=== PATIENT | male | born 1945 | race Caucasian/White ===

== ENCOUNTER 2017-03-08 07:59 | Outpatient (CLI) | payer MEDICARE, OTHER ==
[~2017-03-08 07:59] MED LIST: Iopamidol 370 76% 50 ML VIAL FS ONE
--- NOTE | 2017-03-08 09:42 | RAD ---
2 VIEWS OF CHEST: Date: 03/08/17 COMPARISON: 11/27/14. HISTORY: Transitional cell carcinoma of left kidney. FINDINGS: Descending thoracic aorta is tortuous. No pneumothorax, pleural fluid, focal consolidation, or alveol ar edema. Mid thoracic spine degenerative disc disease noted with disc space narrowing and anterior o steophyte formation. There is atherosclerotic calcification of the aortic arch. IMPRESSION: No acute findings. Incidental findings as above. No interval change since 11/27/14. POS: [facility]
--- NOTE | 2017-03-08 11:25 | CT ---
CT OF THE ABDOMEN AND PELVIS WITH AND WITHOUT IV CONTRAST: HISTORY: History of transitional cell carcinoma of the left kidney. COMPARISON: CTA of the abdomen and pelvis dated 03/01/16. FINDINGS: There are stable bilateral renal cysts with the largest being 4.4 cm within the left mid kidney. The re is a left ureteral stent in place. No gross region of abnormal urothelial enhancement is evident. No hydronephrosis is demonstrated. No solid renal lesion is noted. The prostate is mildly enlarge d measuring 5.3 cm. There is a small hiatal hernia. No focal hepatic lesion is evident. There is slight nodular contour to the liver that is similar-sonali earing to the prior. There is a very tiny hypodensity within the anterior aspect of the right hepati c lobe which may be reflecting a small amount of perihepatic fat within a focal region of concavity a long the liver surface. Scattered vascular calcifications are similar. The spleen is normal-appearing. There are scattered colonic diverticula. Rectum and perirectal soft tissues are unremarkable. 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 There is diffuse osteopenia. There is s cattered degenerative change. IMPRESSION: 1. No definite solid renal lesion demonstrated. 2. No gross urothelial lesion evident. The left ureteral stent slightly limits evaluation of the ur othelial lining of the left renal collecting system. There are bilateral renal cysts. 3. Prostate enlargement. 4. 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 5. Diffuse osteopenia. 6. Small hiatal hernia. POS: [facility]
== END 2017-03-08 08:00 | disposition home or self-care (01) ==
LOC: CT 07:59
PROVIDERS: ATTEND Urology
DX: C64.2 Malignant neoplasm of left kidney, except renal pelvis (principal); N28.1 Cyst of kidney, acquired; N40.0 Benign prostatic hyperplasia without lower urinary tract symptoms; M85.80 Other specified disorders of bone density and structure, unspecified site; K44.9 Diaphragmatic hernia without obstruction or gangrene
CPT/HCPCS: 71020; 74178

== ENCOUNTER 2017-03-15 14:29 | Outpatient (CLI) | payer MEDICARE, OTHER ==
[2017-03-15 17:29] LABS: Bilirubin Negative (Negative); Blood, Urine Moderate (Negative); Glucose, Urine (Dipstick) Negative (Negative); Ketone, Urine Negative (Negative); Nitrite Negative (Negative); Protein, Urine (Dipstick) Negative (Neg-Trace)
[2017-03-15 17:33] LABS: Bacteria/HPF None Seen HPF (None Seen); Hyaline Casts/LPF 0-3 HYALINE CAST LPF (0-3 Hyaline); Squamous Epithelial None Seen HPF (0-3); WBC/HPF 0-3 HPF (0-3)
[2017-03-15 17:35] LABS: Hematocrit 36.8 % (42.0-52.0); Mean Platelet Volume 6.9 fL (7.4-10.4); White Blood Cell (WBC) Count 5.7 thou/uL (4.8-10.8)
[2017-03-15 17:40] LABS: PTT 30.2 SEC (22.9-36.1); Prothrombin Time 13.5 SEC (12.0-14.7)
[2017-03-15 17:50] LABS: ALT (SGPT) 18 U/L (8-55); AST (SGOT) 19 U/L (5-34); Alkaline Phosphatase 73 U/L (40-150); Anion Gap 16 mmol/L (10-20); BUN (Urea Nitrogen) 21 mg/dL (8.4-25.7); Bilirubin, Total 0.7 mg/dL (0.2-1.2); Calc. Creatinine Clearance 0 mL/min (70-130); Calcium 9.1 mg/dL (7.8-10.44); Carbon Dioxide 26 mmol/L (23-31); Chloride 102 mmol/L (98-107); Estimated GFR-MDRD 80; Globulin 2.7 g/dL (2.4-3.5); Protein, Total 6.9 g/dL (5.8-8.1)
--- NOTE | 2017-03-15 18:34 | RAD ---
TWO VIEWS OF THE CHEST: 03/15/2017 COMPARISON: 03/08/2017 HISTORY: Preoperative patient. FINDINGS: There is no pneumothorax or pleural fluid and no focal consolidation or alveolar edema. The descend ing thoracic aorta is tortuous, a stable finding. There is multilevel mid-thoracic spine disk space narrowing and anterior osteophyte formation. Stable mild pulmonary hyperinflation. IMPRESSION: Chronic findings as described above. No acute findings. POS: [facility]
--- NOTE | 2017-03-16 21:05 | EKG ---
Test Reason : Blood Pressure : / mmHG Vent. Rate : 061 BPM Atrial Rate : 061 BPM P-R Int : 166 ms QRS Dur : 092 ms QT Int : 446 ms P-R-T Axes : 059 011 006 degrees QTc Int : 448 ms Sinus rhythm with marked sinus arrhythmia Inferior infarct , age undetermined Abnormal ECG When compared with ECG of 19-OCT-2016 09:45, Inferior infarct is now Present Confirmed by KARISHMA DE LA CRUZ, SRaisa ([id number]) on 03/16/2017 9:05:18 PM Referred By: SHIVA Confirmed By:DR. Zia SCHWARZ MD
== END 2017-03-15 14:30 | disposition home or self-care (01) ==
LOC: LABBT 14:29
PROVIDERS: ATTEND Urology
DX: Z01.818 Encounter for other preprocedural examination (principal); C68.9 Malignant neoplasm of urinary organ, unspecified; R91.8 Other nonspecific abnormal finding of lung field; M51.34 Other intervertebral disc degeneration, thoracic region; M25.78 Osteophyte, vertebrae
CPT/HCPCS: 71020; 80053; 81001; 85027; 85610; 85730; 86850; 86900; 86901; 87086; 93005; 93010

== ENCOUNTER 2017-03-15 16:30 | Inpatient (IN) | payer MEDICARE, OTHER ==
[2017-03-18] MEDS ORDERED: Fentanyl 250 MCG/5 ML VIAL ONE ×2 (06:54→07:38)
[2017-03-18] MEDS ORDERED: CEFAZOLIN/Water 2 GM/20 ML SYRINGE ONE (07:19)
[2017-03-18] MEDS ORDERED: Levofloxacin 500 mg/D5W 100 ml Premix Bag ONE (07:19)
[2017-03-18] MEDS ORDERED: Bupivacaine/Epinephrine 0.25% 30 ML VIAL ONE (07:55)
[2017-03-18] MEDS ORDERED: B & O ONE (07:56)
[2017-03-18] MEDS ORDERED: Propofol 200 MG/20 ML VIAL ONE (07:59)
[2017-03-18] MEDS ORDERED: Glycopyrrolate 0.2 MG/ML 5 ML SYRINGE ONE (07:59)
[2017-03-18] MEDS ORDERED: Ondansetron HCl/PF 4 MG/2 ML Vial ONE (07:59)
[2017-03-18] MEDS ORDERED: PHENYLEPHRINE-NS 100 MCG/ML 10 ML SYRINGE ONE (07:59)
[2017-03-18] MEDS ORDERED: ePHEDrine/0.9% NaCl/PF SYRINGE 50 mg/10 ml ONE (07:59)
[2017-03-18] MEDS ORDERED: diphenhydrAMINE 50 MG/ML VIAL ONE (07:59)
[2017-03-18] MEDS ORDERED: Lidocaine 1% PF 5 ML VIAL ONE (07:59)
[2017-03-18] MEDS ORDERED: Dexamethasone 20 MG/5 ML VIAL ONE (07:59)
[2017-03-18] MEDS ORDERED: Dexamethasone 4 mg/ml Vial ONE (13:06)
[2017-03-18] MEDS ORDERED: Bupivacaine HCl 0.5%/Epinephrine 1:200,000/PF 30 ml Vial ONE (13:45)
[2017-03-18 14:34] LABS: Hematocrit 37.1 % (42.0-52.0); Mean Platelet Volume 6.5 fL (7.4-10.4); Red Blood Cell (RBC) Count 3.53 mill/uL (4.70-6.10); White Blood Cell (WBC) Count 16.9 thou/uL (4.8-10.8)
[2017-03-18] MEDS ORDERED: Fentanyl 100 MCG/2 ML VIAL ONE (14:44)
[2017-03-18 15:00] LABS: Anion Gap 14 mmol/L (10-20); BUN (Urea Nitrogen) 17 mg/dL (8.4-25.7); Calc. Creatinine Clearance 81 mL/min (70-130); Calcium 8.6 mg/dL (7.8-10.44); Carbon Dioxide 23 mmol/L (23-31); Chloride 101 mmol/L (98-107); Estimated GFR-MDRD 65
--- NOTE | 2017-03-18 15:22 | RAD ---
CHEST 1 VIEW: Date: 03/18/17 HISTORY: Evaluate for left pneumothorax. COMPARISON: 03/02/16, 03/15/17. FINDINGS: Slight elongation of the aorta. Normal cardiac silhouette. Pulmonary vessels are within normal limits . Costophrenic angles are clear. Chronic changes of lung parenchyma. No consolidation or mass. No def inite pneumothorax or osseous abnormalities. A small amount of subcutaneous emphysema of the right he mithorax is noted. There is evidence of pneumomediastinum. IMPRESSION: 1. No evidence of a left or right-sided pneumothorax. 2. Nonspecific subcutaneous emphysema of the right thoracic soft tissues and pneumomediastinum. POS: [facility]
[2017-03-18] MEDS ORDERED: diphenhydrAMINE 25 MG CAP PO PRN (16:06)
[2017-03-18] MEDS ORDERED: Morphine PF 1 MG/ML SYR IVP PRN (16:06)
[2017-03-18] MEDS ORDERED: cefOXitin 1.5 GM in Sodium Chloride 0.9% 100 ML IVPB SCH (16:06)
[2017-03-18] MEDS ORDERED: ALPRAZolam 0.25 MG TAB PO PRN (16:06)
[2017-03-18] MEDS ORDERED: Ondansetron HCl/PF 4 MG/2 ML Vial IVP PRN (16:06)
[2017-03-18] MEDS ORDERED: hydrALAZINE 20 MG/ML VIAL SLOW IVP PRN (16:06)
[2017-03-18] MEDS ORDERED: Mag-Al 1200 mg/1200 mg/30 ML UDCUP PO PRN (16:06)
[2017-03-18] MEDS ORDERED: Zolpidem Tartrate 5 MG TAB PO PRN (16:06)
[2017-03-18] MEDS ORDERED: Oxybutynin 5 MG TAB PO PRN (16:06)
[2017-03-18] MEDS ORDERED: Bisacodyl 10 MG SUPP PR PRN (16:06)
[2017-03-18] MEDS ORDERED: MORPHINE 10 MG/ML SYRINGE SLOW IVP PRN (16:06)
[2017-03-18 16:15] VITALS: BMI 32.3
--- NOTE | 2017-03-18 16:58 | OP ---
DATE OF SURGERY: 03/18/2017 SERVICE: Urology. SURGEON: Grabiel Miller M.D. RESEARCH CHEF: Anisha Ruano M.D. 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 PROCEDURE PERFORMED: Left laparoscopic radical nephroureterectomy. INDICATIONS FOR PROCEDURE: Mr. Ruano is a 71-year-old white male, who was sent to me by Dr. Cm Adair. Dr. Adair had worked him up for urothelial carcinoma and had performed cytologies and ureteroscopy of his left kidney. The patient was found to have urothelial carcinoma with a combination of high- grade and low-grade noninvasive cancer of the renal pelvis and throughout the ureter. The patient desired a less invasive surgery than an open nephroureterectomy and so he was sent to me for a laparoscopic radical nephroureterectomy. I have reviewed the patient's pathology and his imaging, and we have agreed to proceed forward with the left-sided radical nephroureterectomy with all risks and benefits discussed ahead of time. DESCRIPTION OF PROCEDURE: After identification of his armband and verification of consent, the patient was brought back to the operating room where he underwent general anesthesia with endotracheal intubation. He was then placed in dorsal lithotomy position and prepped and draped in the usual sterile fashion. After appropriate time out, a lubricated 28-[place] Islander resectoscope sheath was brought into the patient's urethra, into the bladder. The stent was seen emanating from the left ureteral orifice. The ureteral orifice was scored circumferentially around the ureter to create a defect in the urothelium to make subsequent removal of the ureter later more facilitated. Once this was completed and we could see the perivascular fat, the cystoscope was removed leaving the bladder full. A 16-[place] Islander Mansfield catheter was then placed into the patient's bladder. The catheter was secured with a Statlock and then the patient changed to a left lateral decubitus full flank positioning. He then had all his pressure points padded and it was prepped and draped again in the usual sterile fashion. An incision was made below the 12th rib along the mid axillary line and dissection was carried down with S retractors and then blunt dissection into the retroperitoneum. The psoas muscle was identified using digital dissection and swept clear of the surrounding tissues anteriorly and cephalad and caudally. A Spacemaker balloon was then inserted into the space that had been created digitally and insufflated to maximal distention under direct vision using the laparoscopic camera. The Spacemaker balloon was then removed and the balloon port inflated and left in place for the camera. Two additional ports were placed, a 5-mm left-handed port and a 12-mm right-handed port for further dissection. Dissection was then carried out along the psoas muscle cephalad until the kidney could be elevated. Dissection was then begun until the gonadal vein was identified. The gonadal vein was dissected proximally until the renal vein was identified. The renal vein was dissected free and this exposed the renal artery. The renal artery and vein were dissected clear of each other and found to be separate enough that they could be independently ligated. The renal artery was first ligated using a vascular loaded curved tip stapler. Unfortunately, the stapler being 2.5-mm vascular load did not seem to adequately control the artery and there was pulsatile bleeding coming from between the staple lines to assist with suctioning and a fourth 5-mm port was placed in the patient's retroperitoneum and suction pressure held on the bleed while additional clips were applied on the renal artery. This slowed the bleeding down significantly and then FloSeal was applied on the renal artery. While the FloSeal was in place, the renal vein was divided using a 2-mm vascular loaded stapler. The gonadal vein was clipped and divided using the LigaSure device. The posterior aspect and lateral aspect of the kidney were then dissected free using blunt dissection and the LigaSure device. I then came back to the renal artery, which had stopped bleeding at this point. The renal artery was dissected proximally until more renal artery stump could be identified. Two titanium clips were applied with a clip seismograph supervisor to ensure that the patient would not have a delayed bleeding coming from the renal artery. Another vial of FloSeal was then applied over the renal vein and renal artery for hemostasis. The kidney was then dissected free from the surrounding investments keeping Gerota's fascia intact. There was a significant amount of perinephric fat, which had to be dissected free from the surrounding tissues, and during this step, the adrenal vein was removed with the Gerota's fat. Given the significant amount of fat, it could not be and it was removed with the specimen. Once the kidney was freed up in all directions, it was then pushed down into the lower retroperitoneum towards the pelvis. The hilum was reinspected and there did not appear to be any significant bleeding. The adrenal fossa had a very minimal oozing, but nothing significant. I felt it was fine to go ahead and take out all the ports and takedown the insufflation. The fascias were closed using a 0 Vicryl on a UR -6 and the skin closed with 4-0 Monocryl in a running fashion for the 5-mm and 12-mm and balloon ports. Once these were all closed, Dermabond was applied, and once dried, the patient taken out of positioning and changed to a mildly oblique supine position with the bed flexed to expose the left lower quadrant. Pressure points were again padded and the patient was reprepped and draped in a sterile fashion. An incision was made from near the pubic tubercle to near the iliac crest, superior to these landmarks. With a 10-blade, dissection was then carried down with Bovie electrocautery to the external oblique aponeurosis. This was divided then with Bovie electrocautery and the internal oblique aponeurosis opened as well. This allowed entry into the retroperitoneum. The retroperitoneal space was cleared, and the iliac artery and vein identified. The Bookwalter retractor was then placed to help with the exposure. Using our hands, the previously dissected kidney was palpated in the lower retroperitoneum. There were a few investing attachments, which had to be broken up, but then the kidney was able to be brought out into the surgical field. The ureter immediately became apparent and dissection of the ureter distally was begun. We dissected the ureter free of the iliac artery and distally towards the bladder. Several champagne maker vessels were identified, which had to be clipped or cauterized. One vessel was oversewn secondary to bleeding. Dissection was carried down all the way to the level of the bladder until the bladder mucosa was identified. The stay sutures were applied and the bladder mucosa entered until a cuff could be removed off the bladder. The ureter did detach from the bladder cuff. So, these specimens were sent separately. The bladder cuff was sent in a separate specimen jar. The mucosa and detrusor were then closed in a single layer with a 2-0 Vicryl, as the visualization was too difficult to try and place a 2 layer closure. This was leak tested, and there was found to be a small leak on the posterior aspect of the cystotomy. An additional anrdly-py-wxgaj was placed at the area of leakage and the bladder refilled with 200 mL of sterile water without any leakage apparent from the bladder. Satisfied, the wound was irrigated, and there did not appear to be any additional bleeders. A #10 AD drain, flat drain, was brought into the retroperitoneum and placed away from the cystotomy closure site. The fascia was then closed with a running [address]-1, closing both layers with a single suture. Ilsa was applied in the subcutaneous tissue after irrigation of the subcutaneous tissues and the skin closed with skin bee. The patient was then returned to a supine position. The Anesthesia team then provided a tap block for postoperative anesthesia. The patient was then awakened, extubated, and taken to PACU for recovery in stable condition. COMPLICATIONS: A renal artery bleed through the staple line due to a device failure. This was controlled with titanium clips and no additional bleeding was identified. ESTIMATED BLOOD LOSS: 350 mL. RETAINED TUBES AND DRAINS: A 16-[place] Islander Mansfield catheter and a #10 flat AD drain. SPECIMENS: Left kidney and ureter with bladder cuff. DISPOSITION: The patient will go to PACU, and once he is fully recovered, can go to the floor. He will have inpatient recovery for several days and keep his catheter in for a week. He will then follow up with me for a voiding trial and a cystogram outpatient. We will handle his care on an outpatient basis thereafter. LALO
[2017-03-18] MEDS: Sodium Chloride 0.9% 1,000 ML IV SCH (17:04)
[2017-03-18] MEDS: cefOXitin 1.5 GM, Admixture Fee 1 EACH in Sterile Water 8.33 ML SLOW IVP SCH (17:22)
[2017-03-18] MEDS: traMADol HCl 50 MG TAB PO SCH ×2 (17:22→22:27)
[2017-03-18] MEDS: Hydrochlorothiazide 25 MG TAB PO SCH (20:12)
[2017-03-18] MEDS: Docusate 100 MG CAP PO SCH (20:13)
[2017-03-18] MEDS: Atorvastatin Calcium 40 MG TAB PO SCH (20:13)
[2017-03-19] MEDS: cefOXitin 1.5 GM, Admixture Fee 1 EACH in Sterile Water 8.33 ML SLOW IVP SCH ×2 (01:25→11:10)
[2017-03-19] MEDS: Sodium Chloride 0.9% 1,000 ML IV SCH (02:56)
[2017-03-19] MEDS: traMADol HCl 50 MG TAB PO SCH ×4 (04:30→22:53)
[2017-03-19 05:18] LABS: #Eosinphils 0.1 thou/uL (0.0-0.7); #Lymphocytes 0.6 thou/uL (1.20-3.40); #Monocytes 0.9 thou/uL (0.11-0.59); #Neutrophils 7.5 thou/uL (1.40-6.50); %Eosinophils 0.6 % (0.0-10.0); %Lymphocytes 6.1 % (21.0-51.0); %Monocytes 9.5 % (0.0-10.0); Mean Platelet Volume 5.9 fL (7.4-10.4); Red Blood Cell (RBC) Count 2.96 mill/uL (4.70-6.10); White Blood Cell (WBC) Count 8.9 thou/uL (4.8-10.8)
[2017-03-19 05:28] LABS: Anion Gap 12 mmol/L (10-20); BUN (Urea Nitrogen) 17 mg/dL (8.4-25.7); Calc. Creatinine Clearance 67 mL/min (70-130); Carbon Dioxide 26 mmol/L (23-31); Chloride 103 mmol/L (98-107); Estimated GFR-MDRD 53
--- NOTE | 2017-03-19 09:13 | PRG ---
DATE OF SERVICE: 03/19/2017 SUBJECTIVE: The patient states he is doing okay. He is having some pain in his left flank, but his groin incision is not hurting much secondary to the tap block. He has not passed any gas and states he does not have much of an appetite. He is concerned about being able to get up and walk today. He denies any nausea, vomiting, chest pain or shortness of breath. PHYSICAL EXAMINATION: VITAL SIGNS: Temperature 98.4, pulse 90, respirations 20, blood pressure 104/67, saturation 97% on 2 liters nasal cannula. Ins and outs 1995 mL in, 1795 mL out of that 120 mL it is through AD drainag e. GENERAL: No apparent distress, communicative and alert. CARDIOVASCULAR: Regular rate and rhythm. CHEST: No increased work of breathing. ABDOMEN: Soft. No tenderness to palpation anteriorly. Appropriate mild tenderness to palpation on the left flank. Positive bowel sounds, soft, nondistended. Laparoscopic incisions are clean, dry, a nd intact with mild ecchymosis surrounding. The groin incision is dressed. GENITOURINARY: Mansfield catheter in place with clear yellow urine secured with a StatLock. EXTREMITIES: Sequential compression devices on. No clubbing, cyanosis or edema. LABORATORY DATA: A full set of labs are in the [facility] system, which I have reviewed. Of note, the patient's white count is 8.9 with hemoglobin 10.1, creatinine is 1.34 today. ASSESSMENT AND PLAN: A 71-year-old white male with left-sided urothelial carcinoma, status post left nephroureterectomy postoperative day #1. I recommend the patient start getting up out of bed today and walking to help with his recovery, pain control and prevention of DVTs. I have told him he can u se further pain medication other than his scheduled tramadol, which he is currently not using. He sh ould continue to use incentive spirometer. I will switch his IV fluids to D5 half normal with potass ium today since he is still not taking great p.o. Diet will be advanced when he is passing gas or alcocer s a better appetite. We will continue to monitor, the patient needs to keep his Mansfield in secondary t o the cystotomy made during the part of the routine procedure. SUMMARY OF RECOMMENDATIONS: 1. Clear liquid diet, advance when flatus or a good appetite. 2. Change IV fluids to D5 half normal with potassium. 3. Walking program. 4. Incentive spirometer. 5. Continue pain control. Advised patient to use [place]. 6. We will continue to monitor.
[2017-03-19] MEDS: D5 1/2 NS w/20 mEq KCL 1,000 ML IV SCH ×2 (09:46→19:30)
[2017-03-19] MEDS: Tamsulosin HCl 0.4 MG CAP PO SCH (09:47)
[2017-03-19] MEDS: Hydrochlorothiazide 25 MG TAB PO SCH ×2 (09:47→21:12)
[2017-03-19] MEDS: Citalopram 20 MG TAB PO SCH (09:51)
[2017-03-19] MEDS: Docusate 100 MG CAP PO SCH ×2 (09:51→21:13)
[2017-03-19] MEDS: Lisinopril 10 MG TAB PO SCH (09:53)
[2017-03-19] MEDS: HYDROcodone/Acetaminophen 7.5/325 mg Tablet PO PRN (14:59)
[2017-03-19] MEDS: Atorvastatin Calcium 40 MG TAB PO SCH (21:13)
[2017-03-20] MEDS: traMADol HCl 50 MG TAB PO SCH ×2 (04:46→10:50)
[2017-03-20] MEDS: D5 1/2 NS w/20 mEq KCL 1,000 ML IV SCH (04:48)
[2017-03-20 05:02] LABS: #Eosinphils 0.1 thou/uL (0.0-0.7); #Neutrophils 6.6 thou/uL (1.40-6.50); %Basophils 0.3 % (0.0-1.0); %Eosinophils 1.4 % (0.0-10.0); %Lymphocytes 11.4 % (21.0-51.0); %Monocytes 11.5 % (0.0-10.0); Hematocrit 31.3 % (42.0-52.0); Mean Platelet Volume 6.7 fL (7.4-10.4); Red Blood Cell (RBC) Count 2.96 mill/uL (4.70-6.10); White Blood Cell (WBC) Count 8.8 thou/uL (4.8-10.8)
[2017-03-20 05:14] LABS: Anion Gap 10 mmol/L (10-20); BUN (Urea Nitrogen) 14 mg/dL (8.4-25.7); Calc. Creatinine Clearance 78 mL/min (70-130); Calcium 8.4 mg/dL (7.8-10.44); Carbon Dioxide 27 mmol/L (23-31); Chloride 103 mmol/L (98-107); Estimated GFR-MDRD 63
[2017-03-20] MEDS: Docusate 100 MG CAP PO SCH ×2 (08:32→20:54)
[2017-03-20] MEDS: Citalopram 20 MG TAB PO SCH (08:32)
[2017-03-20] MEDS: Hydrochlorothiazide 25 MG TAB PO SCH (08:32)
[2017-03-20] MEDS: Lisinopril 10 MG TAB PO SCH (08:33)
[2017-03-20] MEDS: Tamsulosin HCl 0.4 MG CAP PO SCH (08:34)
[2017-03-20] MEDS ORDERED: traMADol HCl 50 MG TAB PO PRN (12:50)
--- NOTE | 2017-03-20 13:24 | PRG ---
DATE OF SERVICE: 03/20/2017 SUBJECTIVE: The patient states he is feeling a lot better today. He has been up out of bed once yes terday. He has not passed any gas, but states he is starting to have a little bit of an appetite. Justo weber has had lots of rumbling in his belly. He denies any nausea, vomiting, chest pain or shortness of breath. His pain is much better controlled today on the pain medications. He is still having troubl e getting out of bed on his own, but once he is up, he is able to walk with assistance. OBJECTIVE: VITAL SIGNS: Temperature 97.9, pulse 81, respirations 20, blood pressure 131/83, saturation 97% on r oom air. Ins and outs 1880 mL in, 2950 mL out, of that 50 mL is from the AD drain. GENERAL: No apparent distress, communicative and alert. CARDIOVASCULAR: Regular rate and rhythm. CHEST: No increased work of breathing. ABDOMEN: Soft, nontender, and nondistended. Positive bowel sounds. Incision dressing was removed t sofya. Incision is clean, dry, and intact. AD has scant serosanguineous fluid. GENITOURINARY: Mansfield catheter in place secured with StatLock with clear yellow urine. EXTREMITIES: No clubbing, cyanosis or edema. SCDs in place. LABORATORY DATA: On laboratory evaluation, a full set of labs are in the [facility] system, which I alcocer ve reviewed. Of note, the white count is 8.8, hemoglobin is stable at 10.3. Creatinine is 1.15. So dium is currently 135. ASSESSMENT AND PLAN: A 71-year-old white male with upper tract urothelial carcinoma of the left kidn ey, status post left laparoscopic radical nephroureterectomy postoperative day #2. The patient has s ome mild hyponatremia, so I will stop his hydrochlorothiazide, stop his IV fluids and encourage the p atient to drink p.o. fluids only. If he is not able to keep up with fluid intake, then we will start him back on normal saline. With regards to rest of his recovery, I think he can try regular diet to day although I told him to go slow. He should continue to use his incentive spirometer. He needs to continue getting up and walking out of bed with assistance to regain his strength. At the current t jerica with his current functional ability, he will not be able to go home without physical therapy unle ss he regains his strength back in order to be able to get out of bed and walk on his own without ass istance. I will consult official physical therapy consult for evaluation and assessment. Mansfield cath eter will need to be continued secondary to his cystotomy for nephroureterectomy. We will change his tramadol to p.r.n. instead of scheduled at the current time. I have also recommended that he consid er using a suppository to improve bowel function. Additionally, patient was advised since he is havi ng some redness around his IV site on his left arm, he could potentially get another IV in his right arm. If it only if he gets another IV access, the original IV can be removed; otherwise, if no addit ional IV access can be obtained, the current IV should be maintained as it is not currently infiltrat ed, it is working and there is no evidence of infection or cellulitis.
[2017-03-20] MEDS: HYDROcodone/Acetaminophen 7.5/325 mg Tablet PO PRN ×2 (16:17→20:58)
[2017-03-20] MEDS: Atorvastatin Calcium 40 MG TAB PO SCH (20:54)
[2017-03-21 04:43] LABS: #Eosinphils 0.3 thou/uL (0.0-0.7); #Lymphocytes 1.4 thou/uL (1.20-3.40); #Monocytes 0.8 thou/uL (0.11-0.59); #Neutrophils 5.8 thou/uL (1.40-6.50); %Basophils 0.2 % (0.0-1.0); %Eosinophils 4.1 % (0.0-10.0); %Lymphocytes 16.4 % (21.0-51.0); %Monocytes 9.4 % (0.0-10.0); Hematocrit 31.5 % (42.0-52.0); Mean Platelet Volume 6.7 fL (7.4-10.4); Red Blood Cell (RBC) Count 3.01 mill/uL (4.70-6.10); White Blood Cell (WBC) Count 8.3 thou/uL (4.8-10.8)
[2017-03-21 04:52] LABS: Anion Gap 11 mmol/L (10-20); BUN (Urea Nitrogen) 14 mg/dL (8.4-25.7); Calc. Creatinine Clearance 79 mL/min (70-130); Calcium 8.5 mg/dL (7.8-10.44); Carbon Dioxide 26 mmol/L (23-31); Chloride 101 mmol/L (98-107); Estimated GFR-MDRD 64
[2017-03-21] MEDS: Docusate 100 MG CAP PO SCH ×2 (08:41→19:45)
[2017-03-21] MEDS: Citalopram 20 MG TAB PO SCH (08:41)
[2017-03-21] MEDS: Lisinopril 10 MG TAB PO SCH (08:42)
[2017-03-21] MEDS: Tamsulosin HCl 0.4 MG CAP PO SCH (08:42)
[2017-03-21] MEDS: HYDROcodone/Acetaminophen 7.5/325 mg Tablet PO PRN ×2 (08:56→17:31)
[2017-03-21] MEDS ORDERED: Polyethylene Glycol 3350 17 GM Packet PO SCH (13:00)
--- NOTE | 2017-03-21 13:07 | PRG ---
DATE OF SERVICE: 03/21/2017 SUBJECTIVE: The patient states he feels well. He was able to get out of bed by himself yesterday an d walk around the entire hallway. His pain is very well controlled with tramadol and occasional Norc o. He is not using any IV pain medication. He states that he was able to eat regular food yesterday and keep it down without any nausea or vomiting. He is taking in a better clear liquid intake. He denies any chest pain or shortness of breath. His catheter is not having any problems. He is passin g gas, but has not had a bowel movement. OBJECTIVE: VITAL SIGNS: Temperature 97.7, pulse 96, respirations 20, blood pressure 123/78, saturation 96% on r oom air. Ins and outs, patient had 1380 mL orally and 810 mL by IV fluid, 2100 mL of Mansfield drainage and 30 mL out the drain. GENERAL: No apparent distress, communicative and alert. CARDIOVASCULAR: Regular rate and rhythm. CHEST: No increased work of breathing. ABDOMEN: Soft, nondistended, nontender, positive bowel sounds. Incisions clean, dry, and intact. S table ecchymosis around the port sites. GENITOURINARY: Mansfield catheter is secured with clear yellow urine in the bag. EXTREMITIES: Sequential compression devices on with no clubbing, cyanosis or edema. LABORATORY DATA: The full set of labs in the [employer] system, which I reviewed. Of note, the hemogl obin is stable at 10.3 with a stable white count at 8.3, creatinine is 1.13, sodium is 134. ASSESSMENT AND PLAN: A 71-year-old white male with left upper tract urothelial carcinoma, status pos t laparoscopic radical nephroureterectomy postoperative day #3, recovering very well. He has met saray ost all of his criteria for going home, although he is a little slow getting up out of bed and walkin g still. He states he would feel better about staying 1 more day in the hospital to work on his ambu lation, which I think is reasonable. He is doing well from a dietary standpoint, pain control standp oint, but his labs still demonstrates some mild hyponatremia. I will check his sodium levels again t omorrow, but I do anticipate that he should be able to be discharged tomorrow morning. We can go ahe ad and remove his AD drain today as it is not really putting out much. He will need to keep his Fole y catheter in for at least a week for healing of the cystotomy. We will plan for a followup with a c ystogram prior to Mansfield removal in a week.
[2017-03-21] MEDS: Atorvastatin Calcium 40 MG TAB PO SCH (19:46)
[2017-03-22 06:07] LABS: Anion Gap 9 mmol/L (10-20); BUN (Urea Nitrogen) 18 mg/dL (8.4-25.7); Calc. Creatinine Clearance 69 mL/min (70-130); Calcium 8.7 mg/dL (7.8-10.44); Carbon Dioxide 29 mmol/L (23-31); Chloride 101 mmol/L (98-107); Estimated GFR-MDRD 55
[2017-03-22] MEDS: Tamsulosin HCl 0.4 MG CAP PO SCH (08:31)
[2017-03-22] MEDS: Citalopram 20 MG TAB PO SCH (08:31)
[2017-03-22] MEDS: Docusate 100 MG CAP PO SCH (08:32)
[2017-03-22] MEDS: Lisinopril 10 MG TAB PO SCH (08:32)
[2017-03-22] MEDS ORDERED: Polyethylene Glycol 3350 17 GM Packet PO SCH (09:00)
--- NOTE | 2017-03-22 09:41 | PRG ---
DATE OF SERVICE: 03/22/2017 SUBJECTIVE: The patient states he is feeling very well. He has been able to get up and out of bed b y himself without much assistance. He has been walking better with his walker. He feels comfortable going home. He is eating well and passing gas. He has not yet had a bowel movement, but has not alcocer d any nausea or vomiting. Pain is well controlled. OBJECTIVE: VITAL SIGNS: Temperature 98.7, pulse 92, respirations 16, blood pressure 95/62, saturation 98% on ro om air. GENERAL: No apparent distress, communicative and alert. CARDIOVASCULAR: Regular rate and rhythm. CHEST: No increased work of breathing. ABDOMEN: Soft, nontender, and nondistended. Positive bowel sounds. Incision is clean, dry, and int act. AD site is clean. AD has been removed. GENITOURINARY: Mansfield catheter in place with clear yellow urine. EXTREMITIES: No clubbing, cyanosis or edema. LABORATORY DATA: On laboratory evaluation, a full set of labs in the [facility] system, which I have monica navarrowejeison. Of note, patient's sodium today is stable at 135, creatinine is 1.29 with GFR of 55. ASSESSMENT AND PLAN: A 71-year-old white male status post left nephroureterectomy, postoperative day 4 recovered very well. He is ready for discharge home. I will send him home with his Mansfield cathete r and plan is to have his catheter removed with a voiding cystourethrogram in 1 week. Arabella will b e removed in two weeks. I have asked the patient to keep gauze on his staple line due to his belly c overing up some of the incision area which will cause a damp, dark place where potential bacteria and mildew may grow. A gauze will help to keep the area dry and decrease the risk of infection. I went over the patient's discharge instructions and he should be cleared for discharge with follow up in 1 week. In addition, patient's sodium remains stable, it is slightly low. His blood pressure is also slightly low. Will stop the patient's hydrochlorothiazide as this can promote hyponatremia as well a s lower his blood pressure further. This can be restarted with his primary care physician. I have a sked the patient to follow up with his primary care physician in the next 2 weeks to go over his bloo d pressure and his labs. I will reorder a BMP at the time of his follow up.
[2017-03-22 12:22] VITALS: BP 111/77; TEMP 97.8
--- NOTE | 2017-03-23 11:21 | DIS ---
DATE OF ADMISSION: 03/18/2017 DATE OF DISCHARGE: 03/22/2017 ADMITTING DIAGNOSIS: Left upper tract urothelial carcinoma. DISCHARGE DIAGNOSIS: Left upper tract urothelial carcinoma. ADMITTING: Dr. Miller. DISCHARGING: Dr. Miller. PROCEDURE PERFORMED WHILE INPATIENT: Left radical nephroureterectomy, laparoscopic. BRIEF HISTORY: Mr. Ruano is a 71-year-old white male who had been referred to me by Dr. Adair for a left radical nephroureterectomy. He had undergone ureteroscopy with biopsies demonstrating high-gr beatriz and low-grade urothelial carcinoma present throughout the ureter. He has already undergone neoad juvant chemotherapy and is now presenting for removal of his left kidney and ureter for completion of his treatment. Risks and benefits of the surgery have been discussed and he has agreed to proceed f orward. Please see the scanned history and physical for full records in the [facility]. HOSPITAL COURSE: After his surgery (please see operative note for details), the patient was admitted to the surgical floor for postoperative recovery. He underwent a TAP block in the OR prior to comin g out to PACU to help with pain control. He was left on scheduled tramadol with hydrocodone ordered p.r.n. His pain was relatively high on postoperative day 0-1, but subsequently became much better th ereafter and the patient was able to use less and less pain medication. He did have some trouble wit h ambulation initially, but was able to ambulate on his own and get out of bed on his own after worki ng with a walking program for approximately 2 days. By the third day, he was able to get up out of b ed and ambulate by himself with his catheter. His diet was started with a clear liquid diet and adva nced as tolerated to a regular diet, which he was able to do by the third postoperative day. His AD drain was removed on postoperative day #3, as it was putting out very little fluid. His Mansfield cathet er remained clear throughout his hospitalization, and we had elected to leave it at the time of disch arge, as it was too soon to remove and I did not want him to risk having a bladder leak. By postoper ative day #4, he had met all of his criteria for discharge. He had been up out of bed, walking with his pain controlled, using his incentive spirometer well, his vitals had looked good, and his hemoglo bin and other labs were stable. The patient's renal function remained stable. He did have some hypo natremia, but there was no evidence that this was worsening at the time of his discharge, so I felt t hat this was well enough for him to go home on. I did advise that he stop his hydrochlorothiazide du e to his hyponatremia and follow up with his primary care physician to discuss whether or not he need s to remain on this medication since his blood pressure was fairly well controlled off the hydrochlor othiazide in the hospital; however, this may be due to his pain medications and anesthetic effects, a nd it is possible that he may need to go back on the medication in the future, but we will need to alcocer ve his electrolytes monitored. He was discharged on postoperative day #4 without any complications o r problems. DISPOSITION: Discharge to home. DISCHARGE CONDITION: Good. The patient is being discharged with a Mansfield catheter to gravity drainage. DISCHARGE MEDICATIONS: Include resuming all of his home medications except the hydrochlorothiazide, which we have held until he is able to speak with his primary care physician. He is being given hydr ocodone 5/325 mg 1-2 tabs p.o. q.4 hours p.r.n. pain, and tramadol 50 mg p.o. q.6 hours p.r.n. pain, Colace 100 mg p.o. b.i.d. DISCHARGE INSTRUCTIONS: Include no heavy lifting, no strenuous activity, no driving until the cathet er is removed. He can shower, but should not submerge in water, should not perform any strenuous act ivity or any lifting over 20 pounds. He is to keep his Mansfield catheter to gravity drainage at all jesús es, and notify me for any fevers, problems with his catheter, significant hematuria, persistent vomit ing, chest pain, shortness of breath, or any other concerning signs or symptoms the patient may have. FOLLOWUP: His followup will be in approximately a week and a half for a cystogram and catheter remov al. We will subsequently remove his bee a week after that.
== END 2017-03-22 12:20 | disposition home or self-care (01) | DRG 654 ==
LOC: SURG A 03-18 05:54
PROVIDERS: ADMIT Urology; ATTEND Urology
PROC: 0TT14ZZ Resection of Left Kidney, Percutaneous Endoscopic Approach (ICD-10-PCS; principal; 2017-03-18)
PROC: 0TBB4ZZ Excision of Bladder, Percutaneous Endoscopic Approach (ICD-10-PCS; 2017-03-18)
PROC: 0TT74ZZ Resection of Left Ureter, Percutaneous Endoscopic Approach (ICD-10-PCS; 2017-03-18)
DX: C65.2 Malignant neoplasm of left renal pelvis (principal); C66.2 Malignant neoplasm of left ureter; E87.1 Hypo-osmolality and hyponatremia; I10 Essential (primary) hypertension; E78.5 Hyperlipidemia, unspecified; M19.90 Unspecified osteoarthritis, unspecified site
CPT/HCPCS: 36415; 71010; 71020; 80048; 80053; 81001; 85025; 85027; 85610; 85730; 86850; 86900; 86901; 87086; 88305; 88307; 88341; 88342; 93005; 93010; A4216; C1727; J0670; J0694; J1100; J1200; J1956; J2001; J2270; J2405; J2704; J3010

== ENCOUNTER 2017-03-29 08:32 | Outpatient (CLI) | payer MEDICARE, OTHER ==
[2017-03-29 09:11] LABS: Anion Gap 12 mmol/L (10-20); BUN (Urea Nitrogen) 27 mg/dL (8.4-25.7); Calc. Creatinine Clearance 0 mL/min (70-130); Calcium 9.4 mg/dL (7.8-10.44); Carbon Dioxide 28 mmol/L (23-31); Chloride 101 mmol/L (98-107); Estimated GFR-MDRD 50
--- NOTE | 2017-03-29 15:05 | RAD ---
VOIDING CYSTOURETHROGRAM: HISTORY: Transitional cell carcinoma. Recent left nephroureterectomy. FINDINGS: A total volume of 300 cc water-soluble contrast was instilled into the urinary bladder via the indwel ling Mansfield catheter. The urinary bladder demonstrates normal capacity and contour. There is no evid ence of vesicoureteral reflux. The patient had no difficulty voiding on the table. Male urethra has a normal appearance. There is no evidence of leak. IMPRESSION: Normal voiding cystourethrogram. POS: LILIAM
== END 2017-03-29 08:33 | disposition home or self-care (01) ==
LOC: RAD 08:32
PROVIDERS: ATTEND Urology
DX: C64.2 Malignant neoplasm of left kidney, except renal pelvis (principal)
CPT/HCPCS: 36415; 51600; 74455; 80048

== ENCOUNTER 2017-12-09 11:44 | Outpatient (CLI) | payer MEDICARE, OTHER ==
[2017-12-09 12:16] LABS: Hemoglobin 12.6 g/dL (14.0-18.0); Mean Corpuscular HGB CONC 32.6 g/dL (32.0-36.0); Mean Corpuscular Hemoglobin 31.2 pg (27.0-31.0); Mean Corpuscular Volume 95.9 fL (78.0-98.0); Platelet Count 267 thou/uL (130-400); RBC Distribution Width 12.7 % (11.5-14.5); Red Blood Cell (RBC) Count 4.04 mill/uL (4.70-6.10); White Blood Cell (WBC) Count 5.6 thou/uL (4.8-10.8)
[2017-12-09 12:23] LABS: PTT 27.1 SEC (22.9-36.1); Prothrombin Time 13.3 SEC (12.0-14.7)
[2017-12-09 12:41] LABS: Anion Gap 14 mmol/L (10-20); BUN (Urea Nitrogen) 36 mg/dL (8.4-25.7); Calc. Creatinine Clearance 0 mL/min (70-130); Calcium 9.7 mg/dL (7.8-10.44); Carbon Dioxide 26 mmol/L (23-31); Chloride 104 mmol/L (98-107); Estimated GFR-MDRD 45; Glucose 99 mg/dL (83-110); Potassium 5.3 mmol/L (3.5-5.1); Sodium 139 mmol/L (136-145)
== END 2017-12-09 11:45 | disposition home or self-care (01) ==
LOC: LABBT 11:44
PROVIDERS: ATTEND Urology
DX: Z01.812 Encounter for preprocedural laboratory examination (principal); C66.2 Malignant neoplasm of left ureter; R82.8 Abnormal findings on cytological and histological examination of urine; Z85.528 Personal history of other malignant neoplasm of kidney; Z90.5 Acquired absence of kidney
CPT/HCPCS: 80048; 85027; 85610; 85730

== ENCOUNTER 2017-12-13 06:46 | Day surgery (SDC) | payer MEDICARE, OTHER ==
[2017-12-09 12:10] VITALS: BMI 31.8
[2017-12-13] MEDS ORDERED: Lidocaine 2% Jelly 5 ML TUBE ONE (07:04)
[2017-12-13] MEDS ORDERED: Iothalamate Meglumine 60% 50 ML VIAL FS ONE (07:04)
[2017-12-13] MEDS ORDERED: cefTRIAXone\\ROCEPHIN 2 GM in Sodium Chloride 0.9% 100 ML IVPB SCH (07:15)
[2017-12-13] MEDS ORDERED: Fentanyl 100 MCG/2 ML VIAL ONE (08:20)
[2017-12-13] MEDS ORDERED: B & O ONE (10:11)
--- NOTE | 2017-12-13 10:23 | OP ---
DATE OF PROCEDURE: 12/13/2017 PREOPERATIVE DIAGNOSES: History of transitional cell cancer, left ureter renal pelvis, status post n ephroureterectomy with recent positive urinary cytology and positive FISH test. POSTOPERATIVE DIAGNOSES: History of transitional cell cancer, left ureter renal pelvis, status post nephroureterectomy with recent positive urinary cytology and positive FISH test. PROCEDURE: Cystoscopy, bladder biopsies, right ureteral washings, right retrograde with stent, prost atic urethral biopsies. SPECIMENS REMOVED: Random bladder biopsies, right ureteral washing and prostatic urethral biopsies. ESTIMATED BLOOD LOSS: 75 mL. DRAINS PLACED: A 24 cm x 6 Nigerien right double-J stent and 20 Nigerien Mansfield catheter. FINDINGS: There is no evidence of urethral stricture disease. There is an enlarged trilobar BPH. 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 There are no obvious bladder tumors, foreign bodies, or stone. Retro grade study on the right side did not reveal any persistent filling defect. Perhaps a little bit of narrowing at the distal ureter. Prostatic urethra looked otherwise normal. OPERATIVE TECHNIQUE: After obtaining written and verbal consent from the patient and after receiving IV antibiotics, he was taken to the operating suite. He was [facility] in the [facility] PlexiPulses were placed on his lower extremities and turned on. He was given a gener al anesthetic and oral intubation. He was then placed in the dorsal lithotomy position, sterilely pr epped and draped. The C-arm was brought in and positioned correctly over his body. He then was ster ilely prepped and draped. Cystoscopy was performed with a 22-Nigerien sheath. This was well lubricate d, passed under direct vision through the male urethra and into the urinary bladder. The bladder was filled and emptied a number of times and examined with both a 30 and a 70 lens. At this point, nisha g a 30-degree lens we did cold cup biopsies of all areas of the bladder wall and then used the Bugbee to cauterize. This was all done using sterile water as our irrigating fluid. At this point, we swi tched over to saline. A 5 Nigerien Pollack catheter was advanced a centimeter or 2 up the right ureter al orifice and an angle tipped Glidewire was then advanced through this and went all the way up into the region renal pelvis and we passed the open-ended catheter up to this point. We then used some sa line to irrigate and flush the region of renal pelvis, proximal, mid and distal ureter sending off al l this fluid that we obtained for cytology. At this point, we went ahead and brought in contrast nate f and half and used it to do a retrograde study. It showed no persistent filling defects in the righ t collecting system. The guidewire was replaced and then a 6 x 24 Polaris double-J stent was placed over the guidewire and pushed up in place with aid of a pusher so its proximal end coiled in the riaz l pelvis and its distal end coiled in the bladder when the wire was removed. At this point, we remov ed the instruments and switched over to the gyrus with continuous use of normal saline as irrigant an d we did a resection of the prostatic urethra adjacent to the verumontanum and then cauterized this. We then placed a Mansfield catheter. There was good hemostasis. It was hooked up to a drainage bag lilian deandre on his right thigh. He was then taken out of the dorsal lithotomy position, awakened and extubat ed and taken by stretcher to the recovery room.
[2017-12-13] MEDS ORDERED: PHENYLEPHRINE-NS 100 MCG/ML 10 ML SYRINGE ONE (11:37)
[2017-12-13] MEDS ORDERED: Lidocaine 1% PF 5 ML VIAL ONE (11:37)
[2017-12-13] MEDS ORDERED: ePHEDrine/0.9% NaCl/PF SYRINGE 50 mg/10 ml ONE (11:37)
[2017-12-13] MEDS ORDERED: PROPOFOL 200 MG/20 ML VIAL ONE (11:37)
[2017-12-13] MEDS ORDERED: Dexamethasone 20 MG/5 ML VIAL ONE (11:37)
[2017-12-13] MEDS ORDERED: Succinylcholine Chloride 20 MG/ML 10 ml SYRINGE FS ONE (11:37)
[2017-12-13] MEDS ORDERED: Ondansetron HCl/PF 4 MG/2 ML Vial ONE (11:37)
--- NOTE | 2017-12-13 12:15 | RAD ---
RETROGRADE URETEROGRAM INTRAOPERATIVE FLUOROSCOPY: HISTORY: Ureteral obstruction. Transitional cell carcinoma. FINDINGS: Intraoperative fluoroscopy was provided for a retrograde study, as performed by Dr. Monge. Multiple spot fluoroscopic show catheterization and contrast opacification of a mildly distended right ureter . Final image shows a double pigtail stent overlying the course of the right ureter. with decompress ion of the right renal collecting system. POS: [facility]
== END 2017-12-13 16:00 | disposition home or self-care (01) ==
LOC: SDC 06:46
PROVIDERS: ATTEND Urology
PROC: 0TBB8ZX Excision of Bladder, Via Natural or Artificial Opening Endoscopic, Diagnostic (ICD-10-PCS; principal; 2017-12-13)
PROC: 0TBD8ZX Excision of Urethra, Via Natural or Artificial Opening Endoscopic, Diagnostic (ICD-10-PCS; 2017-12-13)
PROC: 0T9680Z Drainage of Right Ureter with Drainage Device, Via Natural or Artificial Opening Endoscopic (ICD-10-PCS; 2017-12-13)
DX: N30.20 Other chronic cystitis without hematuria (principal); Z79.82 Long term (current) use of aspirin; Z79.899 Other long term (current) drug therapy
CPT/HCPCS: 52204; 52332; 74420; 88112; 88121; 88305; C1758; C1769; J0696; J1100; J2001; J2405; J2704; J3010; J7050; Q9961

== ENCOUNTER 2017-12-27 07:17 | Day surgery (SDC) | payer MEDICARE, OTHER ==
[2017-12-24 17:39] VITALS: BMI 31.8
[2017-12-27] MEDS ORDERED: cefTRIAXone\\ROCEPHIN 1 GM VIAL ONE (07:50)
[2017-12-27] MEDS ORDERED: Sodium Chloride 0.9% 100 ML ONE (07:50)
[2017-12-27 08:08] LABS: #Basophils 0.1 thou/uL (0.0-0.2); #Eosinphils 0.4 thou/uL (0.0-0.7); #Lymphocytes 1.4 thou/uL (1.20-3.40); #Monocytes 0.6 thou/uL (0.11-0.59); #Neutrophils 3.5 thou/uL (1.40-6.50); %Basophils 1.2 % (0.0-1.0); %Eosinophils 7.4 % (0.0-10.0); %Lymphocytes 22.8 % (21.0-51.0); %Monocytes 9.7 % (0.0-10.0); %Neutrophils 59.1 % (42.0-75.0); Hemoglobin 12.8 g/dL (14.0-18.0); Mean Corpuscular HGB CONC 33.2 g/dL (32.0-36.0); Mean Corpuscular Volume 96.3 fL (78.0-98.0); Mean Platelet Volume 6.4 fL (7.4-10.4); Platelet Count 277 thou/uL (130-400); RBC Distribution Width 13.1 % (11.5-14.5); Red Blood Cell (RBC) Count 4.01 mill/uL (4.70-6.10); White Blood Cell (WBC) Count 5.9 thou/uL (4.8-10.8)
[2017-12-27 08:32] LABS: Anion Gap 16 mmol/L (10-20); BUN (Urea Nitrogen) 31 mg/dL (8.4-25.7); Calc. Creatinine Clearance 63 mL/min (70-130); Calcium 9.5 mg/dL (7.8-10.44); Carbon Dioxide 24 mmol/L (23-31); Chloride 104 mmol/L (98-107); Estimated GFR-MDRD 50; Glucose 107 mg/dL (83-110); Potassium 4.7 mmol/L (3.5-5.1); Sodium 139 mmol/L (136-145)
[2017-12-27] MEDS ORDERED: Fentanyl 100 MCG/2 ML VIAL ONE (09:59)
[2017-12-27] MEDS ORDERED: Iothalamate Meglumine 60% 50 ML VIAL FS ONE (10:03)
--- NOTE | 2017-12-27 11:56 | OP ---
DATE OF PROCEDURE: 12/27/2017 PREOPERATIVE DIAGNOSIS: Abnormal right ureteral cytology. PROCEDURE PERFORMED: Cysto, removal of right stent, right flexible ureteroscopy with biopsies of rudy al pelvis, proximal, mid, and at times distal ureter. SURGEON: Ba Adair M.D. ANESTHESIA: General. ESTIMATED BLOOD LOSS: Less than 25 mL. DRAINS PLACED: A 6 x 22 cm Polaris double-J stent. FINDINGS: There was no obvious tumor along the course of the distal, mid, or proximal ureter. There was a red area just in the renal pelvis, it was biopsied, and we attempted to do biopsies of the pro ximal and mid ureter and did get some small pieces, could not get a good purchase on anything in the distal ureter. At the end of the procedure, a 6 x 22 double-J stent was placed. OPERATIVE TECHNIQUE: After obtaining written and verbal consent from the patient, after receiving IV antibiotics, he was taken to the operating suite. He was placed in the supine position on the treat ment table. PlexiPulses were placed on his lower extremities and turned on. He was given a general anesthetic and oral obturator intubation. He was placed in the dorsal lithotomy position and sterile ly prepped and draped. Cystoscopy was performed with a 22-Lebanese sheath. This was well lubricated a nd passed under direct vision through the male urethra into the urinary bladder with the aid of a 30- degree lens and a video camera and monitor. The bladder was filled and emptied a number of times and the distal end of the indwelling double-J stent was grasped and brought out to the urethral meatus. A guidewire was fed through this and the stent was removed intact and discarded. A dual-lumen urete ral catheter was placed over this, and using fluoroscopy as a guidance, went up about three quarters way up the right ureter and then a second guidewire was placed and then the dual-lumen catheter was r emoved. We went ahead and fed our flexible ureteroscope over one of these wires and followed the wir e all the way up in the renal pelvis, removing the wire, and then looking at the entire collecting sy stem and renal pelvis, proximal, mid, and distal ureter with the findings above. We then used a dual lumen ureteral catheter again, passed a second guidewire and then removing that catheter. We used o ne of these guidewires to pass a ureteral sheath and obturator up to the proximal ureter. Once this was done, we brought in the flexible ureteroscope again and passed through the obturator, and then up into the area of the renal pelvis. We used a piranha biopsy forceps to do the biopsies of the renal pelvis and then proximal and mid ureter. We attempted to do the distal ureter as we will bring the stent up, but we just could not get any good pieces from this region. At this point, we went ahead a nd backloaded our remaining guidewire through our cystoscopic sheath and then passed a 5-Lebanese Polla ck catheter over it, removing the guidewire injecting about 15 mL of contrast filling out the renal p [place] calyceal system, and ureter. There was no extravasation. The guidewires were placed. The ope n-ended catheter was removed, and the stent was passed over the guidewire, pushing up into place with the aid of a pusher so its proximal end coiled in the renal pelvis and its distal end coiled in the bladder when the wire was removed. At this point, the bladder was draining and instruments were madelaine carmen. The string had been left attached to the distal end of the stent, it was cut a little bit short er coming out of the urethral meatus. He was taken out of dorsal lithotomy position, awakened, extub ated, and taken by a stretcher to the recovery room.
--- NOTE | 2017-12-27 12:13 | RAD ---
RETROGRADE RIGHT UREOGRAM: Date: 12-27-17 History: Right ureteroscopy. Comparison: 12-13-17 FINDINGS/IMPRESSION: Multiple intraoperative fluoroscopic images from right retrograde urogram study are provided. Initial felt machine mechanic image demonstrates double pigtail ureteral stent in place. Subsequent images demonstrate jonathan ter and guidewire in place with final image demonstrating contrast within the right renal collecting system and replacement of the right ureteral stent. Correlation with intraoperative findings are ubaldo mmended. POS: LILIAM
== END 2017-12-27 13:07 | disposition home or self-care (01) ==
LOC: SDC 07:17
PROVIDERS: ATTEND Urology
PROC: 0T768DZ Dilation of Right Ureter with Intraluminal Device, Via Natural or Artificial Opening Endoscopic (ICD-10-PCS; principal; 2017-12-27)
PROC: 0TP98DZ Removal of Intraluminal Device from Ureter, Via Natural or Artificial Opening Endoscopic (ICD-10-PCS; 2017-12-27)
PROC: 0TB38ZX Excision of Right Kidney Pelvis, Via Natural or Artificial Opening Endoscopic, Diagnostic (ICD-10-PCS; 2017-12-27)
PROC: 0TB68ZX Excision of Right Ureter, Via Natural or Artificial Opening Endoscopic, Diagnostic (ICD-10-PCS; 2017-12-27)
DX: D41.21 Neoplasm of uncertain behavior of right ureter (principal); F41.9 Anxiety disorder, unspecified; I10 Essential (primary) hypertension; Z79.82 Long term (current) use of aspirin; Z79.899 Other long term (current) drug therapy; Z90.5 Acquired absence of kidney
CPT/HCPCS: 36415; 74420; 80048; 85025; 88305; C1758; J0696; J3010; J7050; Q9961

== ENCOUNTER 2018-03-11 08:01 | Outpatient (CLI) | payer MEDICARE, OTHER ==
--- NOTE | 2018-03-11 09:33 | CT ---
CT ABDOMEN AND PELVIS WITH AND WITHOUT IV CONTRAST: INDICATION: History of left-sided ureteral cancer status post left nephrectomy and chemotherapy last year. CONTRAST: 70 cc of Isovue 370. COMPARISON: Prior study dated 03/08/2017. FINDINGS: There is postsurgical change of a left nephrectomy and left ureterectomy. Surgical bee are seen adjacent to the left aspect of the bladder and extending along the left retroperitoneum. Mild scarri ng is seen within the left aspect of the retroperitoneum as well as the left posterior flank body wal l. No abnormal soft tissue mass is seen within the left renal bed. No gross urothelial lesion is se en involving the right renal collecting system or visualized bladder. There are small cysts within t he right kidney which are stable. There are calcifications within the pancreatic head which may reflect sequelae of prior pancreatitis. The left adrenal gland has been removed. The right adrenal gland is normal appearing. There are c alcified granuloma within the spleen. There is scattered diverticula involving the colon. There is scattered degenerative and osteoarthritic change. There is dextroscoliosis of the lumbar spine. The re is a left total hip prosthesis. IMPRESSION: 1. Left adrenalectomy, left nephrectomy, and left ureterectomy without evidence of recurrent disease . 2. No evidence of gross urothelial lesion involving the right renal collecting system or bladder. 3. Other chronic findings as above. POS: LILIAM
--- NOTE | 2018-03-11 09:35 | RAD ---
TWO VIEW CHEST: COMPARISON: 11/29/2017. INDICATION: Ureteral cancer. FINDINGS: Cardiac silhouette is at upper limits of normal in size. There is ectasia and tortuosity of the thor acic aorta without vascular calcification. Mild interstitial prominence of each lung present. There is no consolidation or effusion. Osseous degenerative change. IMPRESSION: No evidence of acute process. POS: [facility]
[2018-03-11] MEDS ORDERED: ISOVUE-370 76%-LOCM 1 ML ONE (16:38)
== END 2018-03-11 08:02 | disposition home or self-care (01) ==
LOC: BICCT 08:01
PROVIDERS: ATTEND Urology
DX: C66.2 Malignant neoplasm of left ureter (principal); N28.1 Cyst of kidney, acquired; L90.5 Scar conditions and fibrosis of skin; K86.89 Other specified diseases of pancreas; D73.89 Other diseases of spleen; K57.10 Diverticulosis of small intestine without perforation or abscess without bleeding; M19.91 Primary osteoarthritis, unspecified site; Z90.89 Acquired absence of other organs; Z90.5 Acquired absence of kidney; Z90.6 Acquired absence of other parts of urinary tract; Z96.642 Presence of left artificial hip joint
CPT/HCPCS: 71046; 74178; 82565

== ENCOUNTER 2018-03-30 10:40 | Outpatient (CLI) | payer MEDICARE, OTHER ==
[2018-03-30 11:22] LABS: Hemoglobin 12.7 g/dL (14.0-18.0); Mean Corpuscular HGB CONC 32.5 g/dL (32.0-36.0); Mean Corpuscular Hemoglobin 30.8 pg (27.0-31.0); Mean Corpuscular Volume 94.7 fL (78.0-98.0); Mean Platelet Volume 6.6 fL (7.4-10.4); Platelet Count 280 thou/uL (130-400); RBC Distribution Width 12.1 % (11.5-14.5); Red Blood Cell (RBC) Count 4.12 mill/uL (4.70-6.10); White Blood Cell (WBC) Count 5.7 thou/uL (4.8-10.8)
[2018-03-30 11:28] LABS: PTT 29.6 SEC (22.9-36.1); Prothrombin Time 13.4 SEC (12.0-14.7)
[2018-03-30 11:38] LABS: Anion Gap 12 mmol/L (10-20); BUN (Urea Nitrogen) 33 mg/dL (8.4-25.7); Calc. Creatinine Clearance 0 mL/min (70-130); Calcium 9.4 mg/dL (7.8-10.44); Carbon Dioxide 26 mmol/L (23-31); Chloride 105 mmol/L (98-107); Estimated GFR-MDRD 47; Glucose 90 mg/dL (83-110); Potassium 4.7 mmol/L (3.5-5.1); Sodium 138 mmol/L (136-145)
--- NOTE | 2018-03-30 20:10 | EKG ---
Test Reason : Blood Pressure : / mmHG Vent. Rate : 070 BPM Atrial Rate : 070 BPM P-R Int : 176 ms QRS Dur : 090 ms QT Int : 402 ms P-R-T Axes : 066 036 057 degrees QTc Int : 434 ms Normal sinus rhythm with sinus arrhythmia Low voltage QRS Cannot rule out Anterior infarct , age undetermined Abnormal ECG When compared with ECG of 15-MAR-2017 15:32, Minimal criteria for Anterior infarct are now Present Criteria for Inferior infarct are no longer Present Nonspecific T wave abnormality has replaced inverted T waves in Inferior leads Confirmed by KARISHMA DE LA CRUZ, DR. Lizarraga ([id number]) on 03/30/2018 8:10:36 PM Referred By: MARLON Confirmed By:DR. Zia SCHWARZ MD
== END 2018-03-30 10:41 | disposition home or self-care (01) ==
LOC: LABBT 10:40
PROVIDERS: ATTEND Urology
DX: Z01.818 Encounter for other preprocedural examination (principal)
CPT/HCPCS: 80048; 85027; 85610; 85730; 93005; 93010

== ENCOUNTER 2018-04-01 05:53 | Day surgery (SDC) | payer MEDICARE, OTHER ==
[2018-03-30 10:55] VITALS: BMI 31.8
[2018-04-01] MEDS ORDERED: Sodium Chloride 0.9% 100 ML ONE (06:20)
[2018-04-01] MEDS ORDERED: cefTRIAXone\\ROCEPHIN 1 GM VIAL ONE (06:20)
[2018-04-01] MEDS ORDERED: Fentanyl 100 MCG/2 ML VIAL ONE ×2 (07:02)
[2018-04-01] MEDS ORDERED: Midazolam HCl 2 mg/2 ml Vial ONE (07:02)
[2018-04-01] MEDS ORDERED: Iothalamate Meglumine 60% 50 ML VIAL FS ONE (07:42)
--- NOTE | 2018-04-01 10:28 | RAD ---
IVP: Date: 04/01/18 HISTORY: Ureteroscopy. FINDINGS:? There are 28 images provided from a right-sided retrograde pyelogram. Images demonstrate placement of a wire within the right ureter. Wire then extends into the region of the renal collecting system. In jection of contrast media demonstrates mild prominence of the ureter and intrarenal collecting system , but incomplete opacification limits assessment. A stent is present on the final image within the ri ght ureter. IMPRESSION: Retrograde pyelogram as above. POS: LILIAM
[2018-04-01] MEDS ORDERED: PROPOFOL 200 MG/20 ML VIAL ONE (11:04)
[2018-04-01] MEDS ORDERED: Glycopyrrolate 0.2 MG/ML 5 ML SYRINGE ONE (11:04)
[2018-04-01] MEDS ORDERED: Lidocaine 1% PF 5 ML VIAL ONE (11:04)
[2018-04-01] MEDS ORDERED: ePHEDrine/0.9% NaCl/PF SYRINGE 50 mg/10 ml ONE (11:04)
[2018-04-01] MEDS ORDERED: PHENYLEPHRINE-NS 100 MCG/ML 10 ML SYRINGE ONE (11:04)
--- NOTE | 2018-04-06 12:36 | OP ---
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 PROCEDURES PERFORMED: Cystoscopy, right flexible ureteroscopy with brushings and biopsies. ANESTHESIA: General. ESTIMATED BLOOD LOSS: Minimal. FINDINGS: He had no obvious tumor in the ureter or calyceal system or renal pelvis. We did brushings of the proximal calyceal system and renal pelvis. We did brushings of the proximal, mid and distal ureter. We did some biopsies. It was difficult to biopsy because there was an obvious abnormality of the proximal, mid and distal ureter. A 6 x 24 double-J stent was passed and left indwelling with string attached to at the end. The bladder itself showed absent left ureter. No evidence of bladder tumor, foreign body, or stone. OPERATIVE TECHNIQUE: Obtained written and informed consent from the patient. After receiving IV antibiotics, he was taken to the operating suite. He was placed in the supine position on the treatment table. Plexipulses were placed in his lower extremities and turned on. He was given a general anesthetic, placed in the dorsal lithotomy position, sterilely prepped and draped. Fluoroscopy unit was brought in for imaging. Cystoscopy was performed with 22-Mohawk sheath. This was well lubricated, passed under direct vision through the male urethra into the urinary bladder with well lubricated 22-Mohawk sheath and then a video camera monitor and a 30 degree lens. Bladder was filled and examined with a 30 and 70 degree lens. A guide wire was fed up the right ureteral orifice under direct vision and dual lumen catheter was placed over this and a second guidewire was then placed over this. These instruments were then all removed and we brought in an ureteral sheath, passed it up over one of the guidewire to about mid ureter, removed the guidewire and then brought in the flexible ureteroscope. This was passed all the way up into the renal pelvis and calyces system and each of these system was examined and some brushings were done of this region. We then brushed the proximal, mid and distal ureter and biopsied proximal, mid and distal ureter. As mentioned, there was no obvious tumor. There were some areas where the mucosa was somewhat thickened, but it did not have any type of 3 dimensional appearance to it. Difficult to biopsy because it was flat. Once this was all completed, we back loaded our remaining guidewire through catheter and injected contrast showing no evidence of extravasation or filling defect. A guidewire was placed, open-ended catheter was removed and a stent was placed over the guidewire pushing with the aid of a pusher, so its proximal end coiled in the renal pelvis and the distal end coiled in the bladder when the wires were removed. A string was left exiting the urethral meatus. The bladder was emptied. Instruments were removed. He was taken out of the dorsal lithotomy position, awakened, and extubated and taken by vincent to the recovery room. Job ID: [id number]
== END 2018-04-01 11:04 | disposition home or self-care (01) ==
LOC: SDC 05:53
PROVIDERS: ATTEND Urology
PROC: 0TB68ZX Excision of Right Ureter, Via Natural or Artificial Opening Endoscopic, Diagnostic (ICD-10-PCS; principal; 2018-04-01)
PROC: 0T768DZ Dilation of Right Ureter with Intraluminal Device, Via Natural or Artificial Opening Endoscopic (ICD-10-PCS; 2018-04-01)
DX: C66.1 Malignant neoplasm of right ureter (principal); E78.5 Hyperlipidemia, unspecified; N40.0 Benign prostatic hyperplasia without lower urinary tract symptoms; M19.90 Unspecified osteoarthritis, unspecified site; I10 Essential (primary) hypertension; Z79.82 Long term (current) use of aspirin; Z79.899 Other long term (current) drug therapy
CPT/HCPCS: 52007; 52332; 74420; 88112; 88305; 88341; 88342; C1758; 88104; J0696; J2001; J2250; J2704; J3010; J7050; Q9961

== ENCOUNTER 2018-08-01 08:15 | Outpatient (CLI) | payer MEDICARE, OTHER ==
--- NOTE | 2018-08-01 09:53 | CT ---
FCT abdomen and pelvis with and without IV contrast. Oral contrast was not administered. INDICATIONS: Left ureteral cancer. Post left nephrectomy and chemotherapy. Follow-up. COMPARISON: 03/11/2018 FINDINGS: Lung bases are clear Liver, spleen, and pancreas appear unremarkable. Stomach and duodenum appear unremarkable. Right adrenal gland appears normal. Left adrenal gland is surgically absent. Patient is post left nephrectomy. Changes of left ureterectomy. No evidence of mass or adenopathy in the renal bed. No periaortic adenopathy. Right kidney is unremarkable and unchanged. Small cystic lesion lateral right renal cortex measuring 1.0 cm is stable. Another tiny low-density lesion, probably tiny cyst from the posterior right renal cortex measuring 0.8 cm is stable. There is another subcentimeter low-density focus in the more anter ior right renal cortex which is stable. Right collecting structures unremarkable. Urinary bladder is contracted and not well evaluated but appears unremarkable. Small bowel loops are normal caliber and exhibit normal fold pattern. Appendix is identified and appears unremarkable. Diverticulosis of the entire colon is seen. Scattered stool and gas. No CT evidence of diverticulitis . Aorta is normal caliber. No evidence of retroperitoneal or mesenteric adenopathy. Pelvic structures appear unremarkable. Subcutaneous tissues, abdominal wall, and muscular structures appear unremarkable. Left hip prosthesis. Degenerative spine change. No focal osseous lesion. IMPRESSION: 1. Left adrenalectomy, left nephrectomy and ureterectomy again noted. No evidence of adenopathy are r ecurrence. 2. Numerous tiny low-density foci in the right renal cortex are stable. These most likely represent t iny cystic lesions. 3. Abdominal findings are stable from the exam of 03/11/2018
[2018-08-01] MEDS ORDERED: ISOVUE-370 76%-LOCM 1 ML ONE (11:57)
== END 2018-08-01 08:16 | disposition home or self-care (01) ==
LOC: BICCT 08:15
PROVIDERS: ATTEND Urology
DX: C66.1 Malignant neoplasm of right ureter (principal); C66.2 Malignant neoplasm of left ureter; Z98.890 Other specified postprocedural states
CPT/HCPCS: 74178; 82565; Q9966

== ENCOUNTER 2018-08-12 00:42 | Outpatient (CLI) | payer MEDICARE, OTHER ==
[2018-08-12 14:35] LABS: Hemoglobin 12.3 g/dL (14.0-18.0); Mean Corpuscular HGB CONC 32.7 g/dL (32.0-36.0); Mean Corpuscular Hemoglobin 30.8 pg (27.0-31.0); Mean Corpuscular Volume 94.1 fL (78.0-98.0); Mean Platelet Volume 6.3 fL (7.4-10.4); Platelet Count 284 thou/uL (130-400); RBC Distribution Width 12.5 % (11.5-14.5); Red Blood Cell (RBC) Count 4.01 mill/uL (4.70-6.10); White Blood Cell (WBC) Count 5.5 thou/uL (4.8-10.8)
[2018-08-12 14:52] LABS: PTT 29.9 SEC (22.9-36.1); Prothrombin Time 13.4 SEC (12.0-14.7)
[2018-08-12 14:59] LABS: Anion Gap 11 mmol/L (10-20); BUN (Urea Nitrogen) 36 mg/dL (8.4-25.7); Calc. Creatinine Clearance 0 mL/min (70-130); Calcium 9.3 mg/dL (7.8-10.44); Carbon Dioxide 28 mmol/L (23-31); Chloride 101 mmol/L (98-107); Estimated GFR-MDRD 45; Glucose 93 mg/dL (83-110); Potassium 4.4 mmol/L (3.5-5.1); Sodium 136 mmol/L (136-145)
== END 2018-08-12 00:43 | disposition home or self-care (01) ==
LOC: LABBT 00:42
PROVIDERS: ATTEND Urology
DX: Z01.812 Encounter for preprocedural laboratory examination (principal); C66.1 Malignant neoplasm of right ureter
CPT/HCPCS: 80048; 85027; 85610; 85730; 87086

== ENCOUNTER 2018-08-22 05:52 | Day surgery (SDC) | payer MEDICARE, OTHER ==
[2018-08-12 13:14] VITALS: BMI 47.4
[2018-08-22] MEDS ORDERED: Fentanyl 100 MCG/2 ML VIAL ONE (06:55)
[2018-08-22] MEDS ORDERED: Iothalamate Meglumine 60% 50 ML VIAL FS ONE (07:13)
--- NOTE | 2018-08-22 08:33 | RAD ---
EXAM: XR IVP Retrograde PROVIDED CLINICAL HISTORY: Right ureteral carcinoma COMPARISON: 04/01/2018 FINDINGS/IMPRESSION: 3 images from right retrograde urogram is submitted for interpretation. Initial image demonstrates a guidewire place in the right ureter and overlying the right renal collecting system. Retrograde urogram does demonstrate mild prominence of the right renal pelvis and suggestion of mild calyceal di latation. Findings are similar to prior exam. Final image demonstrates removal of the right ureteral catheter with small amount contrast in the urinary bladder. Surgical clips are seen in the l eft abdomen and left pelvis. Comparison with intraoperative findings is suggested.
[2018-08-22] MEDS ORDERED: Dexamethasone 20 MG/5 ML VIAL ONE (11:13)
[2018-08-22] MEDS ORDERED: Glycopyrrolate 0.2 MG/ML 5 ML SYRINGE ONE (11:13)
[2018-08-22] MEDS ORDERED: Ondansetron PF 4 MG/2 ML Vial ONE (11:13)
[2018-08-22] MEDS ORDERED: Rocuronium Bromide 10 MG/ML (10ML VIAL) ONE (11:13)
[2018-08-22] MEDS ORDERED: ePHEDrine 50 MG/ML VIAL ONE (11:13)
[2018-08-22] MEDS ORDERED: PROPOFOL 200 MG/20 ML VIAL ONE (11:13)
--- NOTE | 2018-08-22 15:29 | OP ---
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 PROCEDURES PERFORMED: Cystoscopy, right ureteral washings, right rigid and flexible ureteroscopy. ANESTHETIC: General. ESTIMATED BLOOD LOSS: Less than 25. DRAINS: None. SPECIMENS: Path sent: Right ureteral washings for cytology. FINDINGS: There is no evidence of stricture disease. He has an enlarged prostate in mainly just lateral lobes. He has an absent left ureteral orifice. He had no evidence of bladder tumor, foreign body, or stone. Washings were obtained. Right rigid and flexible ureteroscopy failed to show anything suspicious for ureteral cancer. Retrograde study done at the very end of the procedure showed no extravasation and no evidence of any filling defect or abnormality. No stent was placed. DESCRIPTION OF PROCEDURE: Obtained written and verbal consent from the patient. After receiving IV Ancef, he was taken to the operating suite. He was placed in supine position on the treatment table. PlexiPulses were placed in his lower extremities and turned on. He was given a general anesthetic and oral obturator intubation. He was placed in the dorsal lithotomy position and sterilely prepped and draped. Cystoscopy was performed with a 22-[place] sheath. This was well lubricated and passed under direct vision through the male urethra into the urinary bladder with the aid of 30-degree lens, video camera, and monitor. The bladder was examined with both the 30 and 70-degree lens with the findings as above, filling and emptying a number of times. A 5-[place] Pollack catheter was then advanced up the right ureteral orifice. We used saline to inject probably about 20 mL up and down the ureter and then draining back through the catheter into a cup and through the catheter into 10 mL syringe with some gentle suction. This was sent off for cytology. Guidewire was then fed up through the open-ended catheter. The open-ended catheter was removed and a rigid ureteroscope was brought in and placed adjacent to the guidewire up to the level of the UPJ. There was no abnormality noted along the course of the ureter. We added through the rigid scope one more guidewire and removed the ureteroscope and then back loaded our flexible cystoscope and passed this over the guidewire and then inspected the entire upper collecting system and renal pelvis and UPJ region again without evidence of finding of any abnormalities suspicious for transitional cell cancer. At this point, this instrument was removed. Through our remaining guidewire, we passed the Pollack catheter up into the area of the renal pelvis, removed the guidewire, and injected contrast throughout the entire collecting system and ureter, removed the Pollack catheter and watched as the contrast drained into the bladder. The cystoscope was replaced. There was evidence of good efflux out the right ureter. The patient at this point was awakened and extubated and taken by stretcher to recovery room. Job ID: [id number]
== END 2018-08-22 10:50 | disposition home or self-care (01) ==
LOC: SDC 05:52
PROVIDERS: ATTEND Urology
PROC: 0TJ98ZZ Inspection of Ureter, Via Natural or Artificial Opening Endoscopic (ICD-10-PCS; principal; 2018-08-22)
PROC: BT1FZZZ Fluoroscopy of Left Kidney, Ureter and Bladder (ICD-10-PCS; 2018-08-22)
DX: C66.1 Malignant neoplasm of right ureter (principal); N40.0 Benign prostatic hyperplasia without lower urinary tract symptoms; M19.90 Unspecified osteoarthritis, unspecified site; E78.5 Hyperlipidemia, unspecified; I10 Essential (primary) hypertension; Z79.82 Long term (current) use of aspirin; Z79.899 Other long term (current) drug therapy; Z98.890 Other specified postprocedural states
CPT/HCPCS: 52351; 74420; 88112; C1758; 88108; J0690; J1100; J2405; J2704; J3010; J3490; Q9961

== ENCOUNTER 2018-12-19 10:33 | Outpatient (CLI) | payer MEDICARE, OTHER ==
[2018-12-19 11:59] LABS: Bacteria/HPF None Seen HPF (None Seen); Bilirubin Negative (Negative); Blood, Urine Trace (Negative); Clarity Clear (Clear); Glucose, Urine (Dipstick) Normal (Negative); Leukocyte Negative Leu/uL (Negative); Nitrite Negative (Negative); Protein, Urine (Dipstick) Negative (Neg-Trace); Squamous Epithelial None Seen HPF (0-3); Urobilinogen Normal mg/dL (Less than 2); WBC/HPF 0-3 HPF (0-3)
[2018-12-19 12:09] LABS: Hemoglobin 12.9 g/dL (14.0-18.0); Mean Corpuscular Hemoglobin 31.4 pg (27.0-31.0); Mean Corpuscular Volume 95.2 fL (78.0-98.0); Mean Platelet Volume 6.5 fL (7.4-10.4); Platelet Count 278 thou/uL (130-400); RBC Distribution Width 12.1 % (11.5-14.5); White Blood Cell (WBC) Count 5.2 thou/uL (4.8-10.8)
[2018-12-19 12:12] LABS: PTT 28.7 SEC (22.9-36.1)
[2018-12-19 12:13] LABS: INR-International Normal Ratio 1.1; Prothrombin Time 13.7 SEC (12.0-14.7)
--- NOTE | 2018-12-19 12:14 | RAD ---
2 views chest: 12/19/2018 COMPARISON: 03/11/2018 HISTORY: Preoperative patient FINDINGS: Descending thoracic aorta is prominent/tortuous. No pneumothorax or pleural fluid. No focal consolidation or alveolar edema. Multilevel disc space narrowing and anterior osteophyte formation noted within the thoracic spine. Mild increased linear interstitial density noted bilaterally. IMPRESSION: No acute findings.
[2018-12-19 12:18] LABS: Anion Gap 15 mmol/L (10-20); BUN (Urea Nitrogen) 31 mg/dL (8.4-25.7); Calc. Creatinine Clearance 0 mL/min (70-130); Calcium 9.6 mg/dL (7.8-10.44); Carbon Dioxide 24 mmol/L (23-31); Chloride 106 mmol/L (98-107); Estimated GFR-MDRD 55; Glucose 102 mg/dL (83-110); Potassium 4.7 mmol/L (3.5-5.1); Sodium 140 mmol/L (136-145)
== END 2018-12-19 10:34 | disposition home or self-care (01) ==
LOC: LABBT 10:33
PROVIDERS: ATTEND Urology
DX: Z01.818 Encounter for other preprocedural examination (principal); C66.1 Malignant neoplasm of right ureter
CPT/HCPCS: 71046; 80048; 81001; 85027; 85610; 85730; 87086; 93005; 93010

== ENCOUNTER 2018-12-26 05:49 | Day surgery (SDC) | payer MEDICARE, OTHER ==
[2018-12-19 11:02] VITALS: BMI 31.8
[2018-12-26] MEDS ORDERED: Iothalamate Meglumine 60% 50 ML VIAL FS ONE (07:15)
[2018-12-26] MEDS ORDERED: Levofloxacin 500 mg/D5W 100 ml Premix Bag ONE (07:17)
[2018-12-26] MEDS ORDERED: Fentanyl 100 MCG/2 ML VIAL ONE (07:17)
--- NOTE | 2018-12-26 09:12 | RAD ---
RETROGRADE PYELOGRAM: Date: 12/26/18 HISTORY: Right ureteral carcinoma. COMPARISON: 08/22/18 study. FINDINGS: A series of 12 images are presented for interpretation. There are no calculi seen. The initial films show a wire and capture placement with contrast injection into a prominent right extrarenal pelvis. N o definitive filling defects are seen. I do not see any definite change since the previous exam. IMPRESSION: No definite renal or ureteral calculi, or any obvious filling defects demonstrated. POS: [facility]
[2018-12-26] MEDS ORDERED: Tamsulosin HCl 0.4 MG CAP ONE (09:14)
--- NOTE | 2018-12-26 12:35 | OP ---
DATE OF PROCEDURE: 12/26/2018 PREOPERATIVE DIAGNOSIS: History of right ureteral cancer. POSTOPERATIVE DIAGNOSIS: History of right ureteral cancer. PROCEDURES PERFORMED: Cystoscopy, right flexible ureteroscopy, and retrograde study. ANESTHESIA: General. ESTIMATED BLOOD LOSS: None. SPECIMENS REMOVED: None. FINDINGS: There is no evidence of stricture disease. He has had a prior TURP. No evidence of bladder tumor, foreign body, or stone. Absent left ureteral orifice. Right ureter, renal pelvis, and calyceal system showed no evidence of stone, tumor, or abnormality. Retrograde study showed good drainage of the right ureter after the ureteroscopy was done with no extravasation. No sign of a filling defect. DESCRIPTION OF PROCEDURE: After obtaining written and verbal consent from the patient after receiving some Levaquin, he was taken to the operating suite. He was placed in a supine position on the treatment table. PlexiPulses were placed in his lower extremities and turned on. He was given a general anesthetic and oral obturator intubation. He was placed in the dorsal lithotomy position. He was sterilely prepped and draped. Cystoscopy was performed with a 22-[place] sheath. This was well lubricated and passed under direct vision through the male urethra into the urinary bladder with aid of a 30-degree lens and video camera and monitor. The bladder was filled and emptied number of times. This was examined with both 30 and 70-degree lens. We then went ahead and fed a guidewire 0.038 up the right ureter and then in the region of the renal pelvis. We then brought in a dual-lumen ureteral catheter and placed over this guidewire and then through its other port, placed a Stiff blue guidewire and then removed the dual-lumen catheter. Over the Stiff blue wire, we brought in the flexible ureteroscope, fit it over the guidewire and up to the region of the renal pelvis, then removing the guidewire and examining all the renal pelvis and mostly just upper and lower calyceal system without a well-defined mid. There was no evidence of any abnormalities. We then looked slowly at the ureter as we backed the scope out in its entirety. At this point, we went ahead and backloaded our green wire through our cystoscopic sheath and placed it back into the bladder. We placed a 5-[place] Pollack catheter up in the region of the renal pelvis, removed the guidewire, and injected about 15 mL of contrast to fill out the upper collecting system as well as the ureter. We then removed the guidewire and watched as the contrast effluxed out. Films were taken as we did this. The ureter appeared to drain well. There was a little bit of blood efflux, but not bad. The bladder was drained. The instruments were removed. We would not place the ureteral stent as it look like the ureters drained fine and we did not place a [place] catheter, but he will have to urinate before he goes home. At this point, he was taken out of dorsal lithotomy position, awakened, extubated, taken by vincent to recovery room. Job ID: [id number]
[2018-12-26] MEDS ORDERED: Lidocaine 1% PF 5 ML VIAL ONE (13:46)
[2018-12-26] MEDS ORDERED: Ondansetron PF 4 MG/2 ML Vial ONE (13:46)
[2018-12-26] MEDS ORDERED: PROPOFOL 200 MG/20 ML VIAL ONE (13:46)
[2018-12-26] MEDS ORDERED: ePHEDrine 50 MG/ML VIAL ONE (13:46)
[2018-12-26] MEDS ORDERED: PHENYLEPHRINE-NS 100 MCG/ML 10 ML SYRINGE ONE (13:46)
[2018-12-26] MEDS ORDERED: Dexamethasone 20 MG/5 ML VIAL ONE (13:46)
== END 2018-12-26 10:30 | disposition home or self-care (01) ==
LOC: SDC 05:49
PROVIDERS: ATTEND Urology
PROC: 0T568ZZ Destruction of Right Ureter, Via Natural or Artificial Opening Endoscopic (ICD-10-PCS; principal; 2018-12-26)
DX: Z85.54 Personal history of malignant neoplasm of ureter (principal); I10 Essential (primary) hypertension
CPT/HCPCS: 52005; 74420; C1758; J1100; J1956; J2001; J2405; J2704; J3010; J3490

== ENCOUNTER 2020-11-19 08:54 | Emergency (ER) | payer MEDICARE, OTHER | END 2020-11-19 10:19 | disposition home or self-care (01) | LOC: ERS 08:54 | DX: S01.81XD Laceration without foreign body of other part of head, subsequent encounter (principal); I10 Essential (primary) hypertension; Z79.01 Long term (current) use of anticoagulants; Z79.899 Other long term (current) drug therapy; X58.XXXA Exposure to other specified factors, initial encounter | CPT/HCPCS: 99282 ==

== ENCOUNTER 2020-11-20 11:43 | Outpatient (CLI) | payer MEDICARE, OTHER | END 2020-11-20 11:44 | disposition home or self-care (01) | LOC: LABBT 11:43 | PROVIDERS: ATTEND Urology | DX: Z01.812 Encounter for preprocedural laboratory examination (principal); N32.89 Other specified disorders of bladder | CPT/HCPCS: 80048; 81001; 85027; 85610; 85730; 87077; 87086; 87186 ==

== ENCOUNTER 2020-12-23 06:34 | Day surgery (SDC) | payer MEDICARE, MEDICAID ==
[2020-12-20 11:04] VITALS: BMI 30.8
[2020-12-23] MEDS ORDERED: Levofloxacin 500 mg/D5W 100 ml Premix Bag ONE (07:41)
[2020-12-23] MEDS ORDERED: mitoMYcin 40 MG in Sodium Chloride 0.9% 40 ML I-VESIC SCH (08:00)
[2020-12-23] MEDS ORDERED: Fentanyl 100 MCG/2 ML VIAL ONE (08:17)
[2020-12-23] MEDS ORDERED: PHENYLEPHRINE-NS 100 MCG/ML 10 ML SYRINGE ONE ×2 (08:18→08:30)
[2020-12-23] MEDS ORDERED: Iothalamate Meglumine 60% 30 ML VIAL FS ONE (08:21)
[2020-12-23] MEDS ORDERED: PROPOFOL 200 MG/20 ML VIAL ONE (08:30)
[2020-12-23] MEDS ORDERED: Ondansetron PF 4 MG/2 ML Vial ONE (08:30)
[2020-12-23] MEDS ORDERED: Esmolol 100 MG/10 ML VIAL ONE (08:30)
[2020-12-23] MEDS ORDERED: Glycopyrrolate 0.2 MG/ML 5 ML SYRINGE ONE (08:30)
[2020-12-23] MEDS ORDERED: Lidocaine 1% PF 5 ML VIAL ONE (08:30)
[2020-12-23] MEDS ORDERED: Dexamethasone 20 MG/5 ML VIAL ONE (08:30)
[2020-12-23] MEDS ORDERED: Rocuronium Bromide 10 MG/ML (10ML VIAL) ONE (08:30)
== END 2020-12-23 12:45 | disposition home or self-care (01) ==
LOC: SDC 06:34
PROVIDERS: ATTEND Urology
PROC: BT1DZZZ Fluoroscopy of Right Kidney, Ureter and Bladder (ICD-10-PCS; principal; 2020-12-23)
PROC: 3E0K805 Introduction of Other Antineoplastic into Genitourinary Tract, Via Natural or Artificial Opening Endoscopic (ICD-10-PCS; 2020-12-23)
DX: C67.0 Malignant neoplasm of trigone of bladder (principal); C67.2 Malignant neoplasm of lateral wall of bladder; C67.5 Malignant neoplasm of bladder neck; N21.1 Calculus in urethra; I10 Essential (primary) hypertension; E78.5 Hyperlipidemia, unspecified; N40.0 Benign prostatic hyperplasia without lower urinary tract symptoms; M19.90 Unspecified osteoarthritis, unspecified site; Z79.82 Long term (current) use of aspirin; Z79.899 Other long term (current) drug therapy; Z90.5 Acquired absence of kidney
CPT/HCPCS: 51720; 52005; 74420; J9280; 88305; J1100; J1956; J2405; J2704; J3010

== ENCOUNTER 2021-06-13 02:38 | Emergency (ER) | payer MEDICARE, MEDICAID ==
[2021-06-13] MEDS ORDERED: Lorazepam 1 MG TAB ONE (03:50)
[2021-06-13] MEDS ORDERED: Morphine 4 MG/ML VIAL ONE (07:40)
[2021-06-13 08:33] LABS: Leukocyte 25 Leu/uL (Negative); Specific Gravity, Urine 1.015 (1.002-1.036); pH, Urine 5.5 (5.0-9.0)
[2021-06-13 08:34] LABS: Bilirubin Negative (Negative); Blood, Urine 3+ (Negative); Glucose, Urine (Dipstick) Normal (Negative); Ketone, Urine Negative (Negative); Nitrite Negative (Negative); Protein, Urine (Dipstick) 70 mg/dL (Neg-Trace); RBC/HPF Greater than 50 HPF (0-3); Squamous Epithelial None Seen HPF (0-3); Urobilinogen Normal mg/dL (Less than 2)
[2021-06-13 08:45] LABS: Bacteria/HPF Rare-Few HPF (None Seen); Clarity Cloudy (Clear); WBC/HPF 0-3 HPF (0-3)
== END 2021-06-13 08:35 | disposition home or self-care (01) ==
LOC: ERS 02:38
DX: R33.9 Retention of urine, unspecified (principal); I10 Essential (primary) hypertension; Z79.899 Other long term (current) drug therapy; Z79.82 Long term (current) use of aspirin
CPT/HCPCS: 51702; 81003; 81015; J2270

== ENCOUNTER 2021-09-24 18:11 | Inpatient (IN) | payer MEDICARE, MEDICAID ==
[2021-09-24 19:04] LABS: #Eosinphils 0.3 thou/uL (0.0-0.7); #Lymphocytes 1.7 thou/uL (1.20-3.40); #Monocytes 0.6 thou/uL (0.11-0.59); %Basophils 0.4 % (0.0-1.0); %Eosinophils 3.1 % (0.0-10.0); %Lymphocytes 19.6 % (21.0-51.0); %Monocytes 6.8 % (0.0-10.0); %Neutrophils 70.2 % (42.0-75.0); Hemoglobin 14.7 g/dL (14.0-18.0); Mean Corpuscular HGB CONC 31.4 g/dL (32.0-36.0); Mean Platelet Volume 6.5 fL (7.4-10.4); Platelet Count 275 thou/uL (130-400); RBC Distribution Width 12.4 % (11.5-14.5); Red Blood Cell (RBC) Count 4.61 mill/uL (4.70-6.10); White Blood Cell (WBC) Count 8.6 thou/uL (4.8-10.8)
[2021-09-24 19:24] LABS: Acetaminophen Less than 10.0 mcg/mL (10.0-30.0); Alcohol 285 mg/dL (Less than 10); Salicylate Less than 8.0 mg/dL (15.0-30.0)
[2021-09-24 19:25] LABS: ALT (SGPT) 13 U/L (8-55); AST (SGOT) 19 U/L (5-34); Albumin 4.4 g/dL (3.4-4.8); Alkaline Phosphatase 78 U/L (40-110); Anion Gap 18 mmol/L (10-20); BUN (Urea Nitrogen) 23 mg/dL (8.4-25.7); Bilirubin, Total 0.6 mg/dL (0.2-1.2); Calc. Creatinine Clearance 0 mL/min (70-130); Calcium 9.1 mg/dL (7.8-10.44); Carbon Dioxide 19 mmol/L (23-31); Chloride 110 mmol/L (98-107); Globulin 2.7 g/dL (2.4-3.5); Glucose 71 mg/dL (83-110); Lipase 75 U/L (8-78); Potassium 4.4 mmol/L (3.5-5.1); Protein, Total 7.1 g/dL (5.8-8.1); Sodium 143 mmol/L (136-145)
[2021-09-24 22:35] LABS: Lactic Acid 4.3 mmol/L (0.5-2.2)
[2021-09-24] MEDS ORDERED: Cefepime 2 GM VIAL ONE (23:14)
[2021-09-24 23:16] LABS: Bilirubin Negative (Negative); Blood, Urine 3+ (Negative); Clarity Turbid (Clear); Glucose, Urine (Dipstick) Normal (Negative); Ketone, Urine Negative (Negative); Leukocyte 75 Leu/uL (Negative); Nitrite Negative (Negative); Protein, Urine (Dipstick) 50 mg/dL (Neg-Trace); Specific Gravity, Urine 1.015 (1.002-1.036); Urobilinogen Normal mg/dL (Less than 2); pH, Urine 5.5 (5.0-9.0)
[2021-09-24 23:25] LABS: Amphetamine Not Detected (NotDetected); Barbiturates Screen Not Detected (NotDetected); Benzodiazepine Screen Not Detected (NotDetected); Cocaine Metabolite Screen Not Detected (NotDetected); Methadone Not Detected (NotDetected); Methamphetamine Not Detected (NotDetected); Opiate Screen Not Detected (NotDetected); Oxycodone Screen Not Detected (NotDetected); Phencyclidine (PCP) Not Detected (NotDetected); THC/Cannabinoid Screen Not Detected (NotDetected); Tricyclic Screen Not Detected (NotDetected)
[2021-09-24 23:33] LABS: RBC/HPF Greater than 50 HPF (0-3)
[2021-09-24 23:34] LABS: Bacteria/HPF Rare-Few HPF (None Seen); Renal Epithelial 0-3 HPF (None Seen); Squamous Epithelial 0-3 HPF (0-3); Transitional Epithelial 0-3 HPF (None Seen)
[2021-09-24] MEDS ORDERED: Ondansetron PF 4 MG/2 ML Vial IVP PRN (23:49)
[2021-09-24] MEDS ORDERED: Acetaminophen 325 MG TAB PO PRN (23:49)
[2021-09-24] MEDS ORDERED: Ondansetron ODT 4 MG TAB PO PRN (23:49)
[2021-09-24] MEDS ORDERED: Acetaminophen 650 MG Suppository PR PRN (23:49)
[2021-09-25] MEDS ORDERED: Vancomycin 1 GM/200 ML BAG ONE (00:44)
[2021-09-25 01:39] VITALS: BMI 28.1
[2021-09-25] MEDS ORDERED: Lorazepam 1 MG TAB PO PRN (01:54)
[2021-09-25] MEDS ORDERED: cefTRIAXone\\ROCEPHIN 1 GM in Sodium Chloride 0.9% 100 ML IVPB SCH (05:00)
[2021-09-25 05:01] LABS: #Basophils 0.1 thou/uL (0.0-0.2); #Eosinphils 0.1 thou/uL (0.0-0.7); #Lymphocytes 1.3 thou/uL (1.20-3.40); #Monocytes 0.6 thou/uL (0.11-0.59); #Neutrophils 5.7 thou/uL (1.40-6.50); %Basophils 0.9 % (0.0-1.0); %Eosinophils 1.1 % (0.0-10.0); %Lymphocytes 16.3 % (21.0-51.0); %Neutrophils 73.7 % (42.0-75.0); Hemoglobin 13.7 g/dL (14.0-18.0); Mean Corpuscular HGB CONC 31.6 g/dL (32.0-36.0); Mean Corpuscular Hemoglobin 32.1 pg (27.0-31.0); Mean Platelet Volume 6.5 fL (7.4-10.4); Platelet Count 274 thou/uL (130-400); RBC Distribution Width 12.4 % (11.5-14.5); Red Blood Cell (RBC) Count 4.26 mill/uL (4.70-6.10); White Blood Cell (WBC) Count 7.7 thou/uL (4.8-10.8)
[2021-09-25 05:18] LABS: Lactic Acid 3.8 mmol/L (0.5-2.2)
[2021-09-25 05:27] LABS: Anion Gap 15 mmol/L (10-20); BUN (Urea Nitrogen) 23 mg/dL (8.4-25.7); Calc. Creatinine Clearance 66 mL/min (70-130); Calcium 8.4 mg/dL (7.8-10.44); Carbon Dioxide 22 mmol/L (23-31); Chloride 109 mmol/L (98-107); Glucose 67 mg/dL (83-110); Potassium 3.9 mmol/L (3.5-5.1); Sodium 142 mmol/L (136-145)
[2021-09-25] MEDS ORDERED: Dextrose 5 %-0.45 % NaCl 1,000 ML IV SCH (08:30)
[2021-09-25] MEDS ORDERED: Enoxaparin Sodium 40 MG/0.4 ML SYRINGE SC SCH (09:00)
[2021-09-25 11:46] LABS: SARS-CoV-2 PCR by NAA Not Detected (NotDetected)
[2021-09-25 15:14] LABS: Lactic Acid 1.7 mmol/L (0.5-2.2)
[2021-09-25 18:42] VITALS: BP 134/79; TEMP 97.8
== END 2021-09-25 18:52 | disposition home or self-care (01) | DRG 897 ==
LOC: ERS 18:11 → 2NO 23:43 → OBSVTOIN 09-25 14:42
PROVIDERS: ADMIT Student in an Organized Health Care Education/Training Program; ATTEND Internal Medicine
DX: F10.129 Alcohol abuse with intoxication, unspecified (principal); N39.0 Urinary tract infection, site not specified; E87.2 Acidosis; C79.00 Secondary malignant neoplasm of unspecified kidney and renal pelvis; I25.10 Atherosclerotic heart disease of native coronary artery without angina pectoris; I10 Essential (primary) hypertension; F32.A Depression, unspecified; F41.9 Anxiety disorder, unspecified; E78.00 Pure hypercholesterolemia, unspecified; R33.9 Retention of urine, unspecified; N40.1 Benign prostatic hyperplasia with lower urinary tract symptoms; R33.8 Other retention of urine; M19.90 Unspecified osteoarthritis, unspecified site; Z85.51 Personal history of malignant neoplasm of bladder; R31.9 Hematuria, unspecified; Y90.8 Blood alcohol level of 240 mg/100 ml or more; Z20.822 Contact with and (suspected) exposure to COVID-19; Z98.890 Other specified postprocedural states; Z85.528 Personal history of other malignant neoplasm of kidney; Z79.899 Other long term (current) drug therapy; Z79.82 Long term (current) use of aspirin
CPT/HCPCS: 36415; 70450; 71045; 80048; 80053; 80306; 80307; 81003; 81015; 83605; 83690; 85025; 87040; 87086; 93005; J0692; J0696; J1650; J3370; J3490; J7042; U0003; U0005

== ENCOUNTER 2021-10-10 05:48 | Day surgery (SDC) | payer MEDICARE, MEDICAID ==
[2021-10-09 10:54] VITALS: BMI 29.3
[2021-10-10] MEDS ORDERED: fentaNYL Citrate/PF 100 MCG/2 ML SYRINGE ONE (06:20)
[2021-10-10] MEDS ORDERED: Sodium Chloride 0.9% 100 ML ONE (06:25)
[2021-10-10] MEDS ORDERED: CEFAZOLIN 2 GM VIAL ONE (06:25)
[2021-10-10] MEDS ORDERED: Lidocaine 1% MPF 2 ML VIAL ONE (06:26)
[2021-10-10] MEDS ORDERED: PROPOFOL 200 MG/20 ML VIAL ONE (07:34)
[2021-10-10] MEDS ORDERED: Lidocaine 1% PF 5 ML VIAL ONE (07:34)
[2021-10-10] MEDS ORDERED: ePHEDrine 50 MG/ML VIAL ONE (07:34)
[2021-10-10] MEDS ORDERED: Ondansetron PF 4 MG/2 ML Vial ONE (07:34)
[2021-10-10] MEDS ORDERED: Levofloxacin 500 mg/D5W 100 ml Premix Bag ONE (09:18)
== END 2021-10-10 10:54 | disposition home or self-care (01) ==
LOC: SDC 05:48
PROVIDERS: ATTEND Urology
PROC: 0TB68ZX Excision of Right Ureter, Via Natural or Artificial Opening Endoscopic, Diagnostic (ICD-10-PCS; principal; 2021-10-10)
PROC: 0TBB8ZX Excision of Bladder, Via Natural or Artificial Opening Endoscopic, Diagnostic (ICD-10-PCS; 2021-10-10)
PROC: 0VT08ZZ Resection of Prostate, Via Natural or Artificial Opening Endoscopic (ICD-10-PCS; 2021-10-10)
DX: C61 Malignant neoplasm of prostate (principal); N30.20 Other chronic cystitis without hematuria; C65.1 Malignant neoplasm of right renal pelvis; N40.0 Benign prostatic hyperplasia without lower urinary tract symptoms; I10 Essential (primary) hypertension; E78.5 Hyperlipidemia, unspecified; M19.90 Unspecified osteoarthritis, unspecified site; Z79.82 Long term (current) use of aspirin; Z79.899 Other long term (current) drug therapy; Z90.5 Acquired absence of kidney; Z90.6 Acquired absence of other parts of urinary tract
CPT/HCPCS: 52204; 52354; 52601; 76000; C2617; 88112; 88305; 88341; 88342; J0690; J1956; J2405; J2704; J3490

== ENCOUNTER 2021-10-25 08:11 | Inpatient (IN) | payer OTHER ==
[2021-10-25 08:59] LABS: #Basophils 0.1 thou/uL (0.0-0.2); #Eosinphils 0.1 thou/uL (0.0-0.7); #Lymphocytes 0.6 thou/uL (1.20-3.40); #Monocytes 0.7 thou/uL (0.11-0.59); #Neutrophils 8.7 thou/uL (1.40-6.50); %Basophils 0.6 % (0.0-1.0); %Eosinophils 0.8 % (0.0-10.0); %Lymphocytes 5.9 % (21.0-51.0); %Monocytes 7.1 % (0.0-10.0); %Neutrophils 85.7 % (42.0-75.0); Hemoglobin 12.6 g/dL (14.0-18.0); Mean Corpuscular HGB CONC 31.5 g/dL (32.0-36.0); Mean Platelet Volume 6.8 fL (7.4-10.4); Platelet Count 258 thou/uL (130-400); RBC Distribution Width 12.3 % (11.5-14.5); Red Blood Cell (RBC) Count 3.94 mill/uL (4.70-6.10); White Blood Cell (WBC) Count 10.2 thou/uL (4.8-10.8)
[2021-10-25 09:21] LABS: ALT (SGPT) 9 U/L (8-55); AST (SGOT) 13 U/L (5-34); Albumin 3.8 g/dL (3.4-4.8); Alkaline Phosphatase 69 U/L (40-110); Anion Gap 16 mmol/L (10-20); BUN (Urea Nitrogen) 31 mg/dL (8.4-25.7); Bilirubin, Total 1.8 mg/dL (0.2-1.2); Calc. Creatinine Clearance 0 mL/min (70-130); Calcium 9.2 mg/dL (7.8-10.44); Carbon Dioxide 23 mmol/L (23-31); Chloride 105 mmol/L (98-107); Globulin 3.1 g/dL (2.4-3.5); Glucose 140 mg/dL (83-110); Lipase 41 U/L (8-78); Potassium 4.2 mmol/L (3.5-5.1); Protein, Total 6.9 g/dL (5.8-8.1); Sodium 140 mmol/L (136-145)
[2021-10-25] MEDS ORDERED: cefTRIAXone\\ROCEPHIN 2 GM VIAL ONE (09:47)
[2021-10-25] MEDS ORDERED: Vancomycin 1.5 GRAM/300 ML BAG 1.5 GM in Premix Bag 1 BAG IVPB SCH (10:15)
[2021-10-25 10:44] LABS: Bilirubin Negative (Negative); Blood, Urine Large (Negative); Glucose, Urine (Dipstick) Negative (Negative); Ketone, Urine Negative (Negative); Leukocyte Moderate (Negative); Nitrite Negative (Negative); Protein, Urine (Dipstick) 100 mg/dL (Neg-Trace); Specific Gravity, Urine 1.025 (1.005-1.030); Urobilinogen 0.2 mg/dL (Less than 2); pH, Urine 5.5 (5.0-9.0)
[2021-10-25 10:51] LABS: Clarity Cloudy (Clear)
[2021-10-25 10:52] LABS: Bacteria/HPF 4+ HPF (None Seen); RBC/HPF 21-50 HPF (0-3); Squamous Epithelial 0-3 HPF (0-3); WBC/HPF Greater than 50 HPF (0-3)
[2021-10-25] MEDS ORDERED: Heparin 1,000 UNITS/ML VIAL ONE (11:35)
[2021-10-25 15:18] VITALS: BMI 29.5
[2021-10-25] MEDS ORDERED: Ondansetron ODT 4 MG TAB SL PRN (15:45)
[2021-10-25] MEDS ORDERED: Ondansetron PF 4 MG/2 ML Vial IVP PRN (15:45)
[2021-10-25] MEDS ORDERED: Sodium Chloride 0.9% 1,000 ML IV SCH (15:45)
[2021-10-25] MEDS ORDERED: Acetaminophen 500 MG TAB PO PRN (18:28)
[2021-10-25] MEDS: Gabapentin 100 MG CAP PO SCH (20:38)
[2021-10-25] MEDS: Lactated Ringer's 1,000 ML IV SCH (20:39)
[2021-10-25] MEDS: Atorvastatin Calcium 40 MG TAB PO SCH (20:39)
[2021-10-25] MEDS: Cefepime 1 GM in Sodium Chloride 0.9% 100 ML IVPB SCH (20:39)
[2021-10-25] MEDS: Acetaminophen 500 MG TAB PO PRN (20:41)
[2021-10-25] MEDS ORDERED: Hydrochlorothiazide 25 MG TAB PO SCH (21:00)
[2021-10-25] MEDS ORDERED: Lactated Ringer's 1,000 ML IV SCH (23:45)
[2021-10-25] MEDS ORDERED: Ibuprofen 200 MG TAB PO SCH (23:59)
[2021-10-26] MEDS: Lactated Ringer's 1,000 ML IV SCH ×4 (00:12→21:17)
[2021-10-26 06:48] LABS: #Eosinphils 0.1 thou/uL (0.0-0.7); #Lymphocytes 0.6 thou/uL (1.20-3.40); #Monocytes 0.7 thou/uL (0.11-0.59); #Neutrophils 5.3 thou/uL (1.40-6.50); %Basophils 0.5 % (0.0-1.0); %Eosinophils 0.9 % (0.0-10.0); %Lymphocytes 8.4 % (21.0-51.0); %Monocytes 10.3 % (0.0-10.0); %Neutrophils 79.8 % (42.0-75.0); Hemoglobin 10.9 g/dL (14.0-18.0); Mean Corpuscular HGB CONC 30.6 g/dL (32.0-36.0); Mean Platelet Volume 7.1 fL (7.4-10.4); Platelet Count 174 thou/uL (130-400); RBC Distribution Width 12.4 % (11.5-14.5); Red Blood Cell (RBC) Count 3.41 mill/uL (4.70-6.10); White Blood Cell (WBC) Count 6.6 thou/uL (4.8-10.8)
[2021-10-26 07:02] LABS: ALT (SGPT) 20 U/L (8-55); AST (SGOT) 34 U/L (5-34); Albumin 2.8 g/dL (3.4-4.8); Alkaline Phosphatase 63 U/L (40-110); Anion Gap 14 mmol/L (10-20); BUN (Urea Nitrogen) 25 mg/dL (8.4-25.7); Bilirubin, Total 1.4 mg/dL (0.2-1.2); Calc. Creatinine Clearance 54 mL/min (70-130); Calcium 8.2 mg/dL (7.8-10.44); Carbon Dioxide 20 mmol/L (23-31); Chloride 110 mmol/L (98-107); Globulin 2.5 g/dL (2.4-3.5); Glucose 104 mg/dL (83-110); Potassium 3.9 mmol/L (3.5-5.1); Protein, Total 5.3 g/dL (5.8-8.1); Sodium 140 mmol/L (136-145)
[2021-10-26] MEDS: Folic Acid 1 MG TAB PO SCH (08:28)
[2021-10-26] MEDS: Enoxaparin Sodium 40 MG/0.4 ML SYRINGE SC SCH (08:28)
[2021-10-26] MEDS: Multivitamin W/ Minerals 1 TAB PO SCH (08:28)
[2021-10-26] MEDS: Thiamine 100 MG TAB PO SCH (08:28)
[2021-10-26] MEDS: Cefepime 1 GM in Sodium Chloride 0.9% 100 ML IVPB SCH ×2 (08:28→21:43)
[2021-10-26] MEDS ORDERED: Lisinopril 10 MG TAB PO SCH (09:00)
[2021-10-26] MEDS: Acetaminophen 500 MG TAB PO PRN (17:55)
[2021-10-26] MEDS ORDERED: Melatonin 3 MG TAB PO PRN (21:17)
[2021-10-26] MEDS: Atorvastatin Calcium 40 MG TAB PO SCH (21:43)
[2021-10-26] MEDS: Gabapentin 100 MG CAP PO SCH (21:43)
[2021-10-27] MEDS: Lactated Ringer's 1,000 ML IV SCH ×2 (05:33→16:10)
[2021-10-27 06:10] LABS: #Eosinphils 0.2 thou/uL (0.0-0.7); #Lymphocytes 0.7 thou/uL (1.20-3.40); #Monocytes 0.6 thou/uL (0.11-0.59); #Neutrophils 3.3 thou/uL (1.40-6.50); %Basophils 0.4 % (0.0-1.0); %Eosinophils 3.8 % (0.0-10.0); %Lymphocytes 14.9 % (21.0-51.0); Hemoglobin 10.7 g/dL (14.0-18.0); Mean Corpuscular HGB CONC 32.2 g/dL (32.0-36.0); Mean Corpuscular Hemoglobin 32.3 pg (27.0-31.0); Mean Platelet Volume 7.2 fL (7.4-10.4); Platelet Count 201 thou/uL (130-400); RBC Distribution Width 12.1 % (11.5-14.5); White Blood Cell (WBC) Count 4.8 thou/uL (4.8-10.8)
[2021-10-27 06:29] LABS: Sodium 139 mmol/L (136-145)
[2021-10-27 06:30] LABS: ALT (SGPT) 33 U/L (8-55); AST (SGOT) 42 U/L (5-34); Albumin 2.7 g/dL (3.4-4.8); Alkaline Phosphatase 93 U/L (40-110); Anion Gap 12 mmol/L (10-20); BUN (Urea Nitrogen) 23 mg/dL (8.4-25.7); Bilirubin, Total 0.6 mg/dL (0.2-1.2); Calc. Creatinine Clearance 63 mL/min (70-130); Calcium 8.3 mg/dL (7.8-10.44); Carbon Dioxide 24 mmol/L (23-31); Chloride 107 mmol/L (98-107); Globulin 2.5 g/dL (2.4-3.5); Glucose 106 mg/dL (83-110); Potassium 3.5 mmol/L (3.5-5.1); Protein, Total 5.2 g/dL (5.8-8.1)
[2021-10-27] MEDS: Enoxaparin Sodium 40 MG/0.4 ML SYRINGE SC SCH (08:51)
[2021-10-27] MEDS: Cefepime 1 GM in Sodium Chloride 0.9% 100 ML IVPB SCH (08:51)
[2021-10-27] MEDS: Thiamine 100 MG TAB PO SCH (08:52)
[2021-10-27] MEDS: Folic Acid 1 MG TAB PO SCH (08:52)
[2021-10-27] MEDS: Multivitamin W/ Minerals 1 TAB PO SCH (08:52)
[2021-10-27] MEDS: Atorvastatin Calcium 40 MG TAB PO SCH (20:18)
[2021-10-27] MEDS: Gabapentin 100 MG CAP PO SCH (20:18)
[2021-10-27] MEDS ORDERED: cefTRIAXone\\ROCEPHIN 1 GM in Sodium Chloride 0.9% 100 ML IVPB SCH (21:00)
[2021-10-28 06:09] LABS: Band 14 % (5-11); Hemoglobin 10.5 g/dL (14.0-18.0); Hypochromia SLIGHT = 6-15 cells (100X) (0-5/hpf); Lymphocytes 9 % (21-51); MDiff Complete? YES; Macrocytosis SLIGHT = 6-15 cells (100X) (0-5/hpf); Mean Corpuscular HGB CONC 32.3 g/dL (32.0-36.0); Mean Corpuscular Hemoglobin 32.5 pg (27.0-31.0); Mean Platelet Volume 6.9 fL (7.4-10.4); Monocytes 11 % (0-10); Neutrophil 65 % (42-75); Platelet Count 200 thou/uL (130-400); Platelet Morphology Comment Appears Adequate; RBC Distribution Width 12.2 % (11.5-14.5); Red Blood Cell (RBC) Count 3.22 mill/uL (4.70-6.10); White Blood Cell (WBC) Count 4.4 thou/uL (4.8-10.8)
[2021-10-28 06:14] LABS: ALT (SGPT) 38 U/L (8-55); AST (SGOT) 43 U/L (5-34); Albumin 2.7 g/dL (3.4-4.8); Alkaline Phosphatase 97 U/L (40-110); Anion Gap 11 mmol/L (10-20); BUN (Urea Nitrogen) 19 mg/dL (8.4-25.7); Bilirubin, Total 0.5 mg/dL (0.2-1.2); Calc. Creatinine Clearance 65 mL/min (70-130); Calcium 8.3 mg/dL (7.8-10.44); Carbon Dioxide 27 mmol/L (23-31); Chloride 108 mmol/L (98-107); Globulin 2.6 g/dL (2.4-3.5); Glucose 98 mg/dL (83-110); Potassium 3.5 mmol/L (3.5-5.1); Protein, Total 5.3 g/dL (5.8-8.1); Sodium 142 mmol/L (136-145)
[2021-10-28] MEDS: Thiamine 100 MG TAB PO SCH (09:23)
[2021-10-28] MEDS: Enoxaparin Sodium 40 MG/0.4 ML SYRINGE SC SCH (09:23)
[2021-10-28] MEDS: Folic Acid 1 MG TAB PO SCH (09:23)
[2021-10-28] MEDS: Multivitamin W/ Minerals 1 TAB PO SCH (09:23)
[2021-10-28 17:42] VITALS: BP 149/83; TEMP 98.4
== END 2021-10-28 18:30 | disposition home or self-care (01) | DRG 698 ==
LOC: ERS 08:11 → ERHOLD 10:23 → T4-A 14:48
PROVIDERS: ADMIT Family Medicine; ATTEND Internal Medicine
PROC: 02HV33Z Insertion of Infusion Device into Superior Vena Cava, Percutaneous Approach (ICD-10-PCS; principal; 2021-10-27)
PROC: B548ZZA Ultrasonography of Superior Vena Cava, Guidance (ICD-10-PCS; 2021-10-27)
DX: T83.518A Infection and inflammatory reaction due to other urinary catheter, initial encounter (principal); A41.9 Sepsis, unspecified organism; N17.9 Acute kidney failure, unspecified; N40.0 Benign prostatic hyperplasia without lower urinary tract symptoms; F41.9 Anxiety disorder, unspecified; F32.A Depression, unspecified; I10 Essential (primary) hypertension; I95.9 Hypotension, unspecified; Z85.51 Personal history of malignant neoplasm of bladder; E78.5 Hyperlipidemia, unspecified; D64.9 Anemia, unspecified; Z20.822 Contact with and (suspected) exposure to COVID-19; Z96.651 Presence of right artificial knee joint; Z96.642 Presence of left artificial hip joint; Z72.89 Other problems related to lifestyle; Z90.5 Acquired absence of kidney; Z98.890 Other specified postprocedural states
CPT/HCPCS: 36415; 36569; 71045; 80053; 81003; 81015; 83605; 83690; 84145; 84484; 85025; 87040; 87077; 87086; 87149; 87186; 93005; 96365; C1751; J0692; J0696; J1642; J1644; J1650; J3370; J3490; J7050; J7120; U0003; U0005

== ENCOUNTER → 2021-11-02 | Day surgery (SDC) | payer OTHER, MEDICAID ==
[~2021-11-02] MED LIST changes: -Iopamidol 370 76% 50 ML VIAL FS ONE; +Sodium Chloride 0.9% 100 ML ONE; +cefTRIAXone\\ROCEPHIN 1 GM VIAL ONE; +cefTRIAXone\\ROCEPHIN 1 GM in Sodium Chloride 0.9% 100 ML IVPB SCH; +cefTRIAXone\\ROCEPHIN 2 GM VIAL ONE
[2021-11-02 15:03] VITALS: BP 101/62; TEMP 98.1
== END | disposition home or self-care (01) ==
LOC: ER/OP 13:12
PROVIDERS: ATTEND Internal Medicine
DX: N39.0 Urinary tract infection, site not specified (principal); R78.81 Bacteremia
CPT/HCPCS: 96365; J0696; J1642; J3490

== ENCOUNTER 2021-12-09 17:09 | Emergency (ER) | payer OTHER ==
[2021-12-09 18:15] LABS: Bacteria/HPF None Seen HPF (None Seen); Bilirubin Negative (Negative); Blood, Urine 1+ (Negative); Clarity Clear (Clear); Glucose, Urine (Dipstick) Normal (Negative); Ketone, Urine Negative (Negative); Leukocyte 75 Leu/uL (Negative); Nitrite Negative (Negative); Protein, Urine (Dipstick) Negative (Neg-Trace); RBC/HPF 0-3 HPF (0-3); Specific Gravity, Urine 1.004 (1.002-1.036); Squamous Epithelial None Seen HPF (0-3); Urobilinogen Normal mg/dL (Less than 2); WBC/HPF 0-3 HPF (0-3); pH, Urine 6.5 (5.0-9.0)
[2021-12-09 18:21] LABS: Amphetamine Not Detected (NotDetected); Barbiturates Screen Not Detected (NotDetected); Benzodiazepine Screen Not Detected (NotDetected); Cocaine Metabolite Screen Not Detected (NotDetected); Methadone Not Detected (NotDetected); Methamphetamine Not Detected (NotDetected); Opiate Screen Not Detected (NotDetected); Oxycodone Screen Not Detected (NotDetected); Phencyclidine (PCP) Not Detected (NotDetected); THC/Cannabinoid Screen Not Detected (NotDetected); Tricyclic Screen Not Detected (NotDetected)
[2021-12-09] MEDS ORDERED: Multivitamins, Adult 10 ML, Thiamine HCl 100 MG, Folic Acid 1 MG in Dextrose 5 %-0.45 %... IV SCH (18:45)
[2021-12-09 18:55] LABS: #Basophils 0.1 thou/uL (0.0-0.2); #Eosinphils 0.3 thou/uL (0.0-0.7); #Lymphocytes 1.6 thou/uL (1.20-3.40); #Monocytes 0.5 thou/uL (0.11-0.59); #Neutrophils 2.9 thou/uL (1.40-6.50); %Eosinophils 5.1 % (0.0-10.0); %Monocytes 8.9 % (0.0-10.0); Hemoglobin 11.1 g/dL (14.0-18.0); Mean Corpuscular HGB CONC 32.4 g/dL (32.0-36.0); Mean Corpuscular Hemoglobin 31.8 pg (27.0-31.0); Mean Corpuscular Volume 98.3 fL (78.0-98.0); Mean Platelet Volume 6.4 fL (7.4-10.4); Platelet Count 396 thou/uL (130-400); RBC Distribution Width 12.8 % (11.5-14.5); White Blood Cell (WBC) Count 5.2 thou/uL (4.8-10.8)
[2021-12-09 19:21] LABS: Acetaminophen Less than 10.0 mcg/mL (10.0-30.0); Alcohol 268 mg/dL (Less than 10); Salicylate Less than 8.0 mg/dL (15.0-30.0)
[2021-12-09 19:23] LABS: ALT (SGPT) 37 U/L (8-55); AST (SGOT) 40 U/L (5-34); Albumin 3.4 g/dL (3.4-4.8); Alkaline Phosphatase 77 U/L (40-110); Anion Gap 13 mmol/L (10-20); BUN (Urea Nitrogen) 15 mg/dL (8.4-25.7); Bilirubin, Total 0.3 mg/dL (0.2-1.2); Calc. Creatinine Clearance 0 mL/min (70-130); Calcium 8.8 mg/dL (7.8-10.44); Carbon Dioxide 23 mmol/L (23-31); Chloride 114 mmol/L (98-107); Estimated GFR 60; Globulin 3.2 g/dL (2.4-3.5); Glucose 80 mg/dL (83-110); Lipase 41 U/L (8-78); Potassium 4.2 mmol/L (3.5-5.1); Protein, Total 6.6 g/dL (5.8-8.1); Sodium 146 mmol/L (136-145)
[2021-12-09 22:48] LABS: Lactic Acid 2.6 mmol/L (0.5-2.2)
[2021-12-10 04:33] LABS: Acetaminophen Less than 10.0 mcg/mL (10.0-30.0); Alcohol 137 mg/dL (Less than 10); Salicylate Less than 8.0 mg/dL (15.0-30.0)
== END 2021-12-10 10:45 | disposition home or self-care (01) ==
LOC: ERS 17:09
DX: F10.129 Alcohol abuse with intoxication, unspecified (principal); R45.851 Suicidal ideations; N40.0 Benign prostatic hyperplasia without lower urinary tract symptoms; I10 Essential (primary) hypertension; Z79.82 Long term (current) use of aspirin; Z79.899 Other long term (current) drug therapy
CPT/HCPCS: 36415; 51701; 70450; 71045; 80053; 80306; 80307; 81003; 81015; 83605; 83690; 84443; 84484; 85025; 93005; J3411; J7042

== ENCOUNTER 2022-01-03 11:16 | Inpatient (IN) | payer OTHER, MEDICAID ==
[2022-01-03 12:01] LABS: #Lymphocytes 0.8 thou/uL (1.20-3.40); #Monocytes 0.4 thou/uL (0.11-0.59); #Neutrophils 2.5 thou/uL (1.40-6.50); %Basophils 0.6 % (0.0-1.0); %Eosinophils 0.4 % (0.0-10.0); %Lymphocytes 22.3 % (21.0-51.0); %Monocytes 10.4 % (0.0-10.0); %Neutrophils 66.3 % (42.0-75.0); Hemoglobin 14.7 g/dL (14.0-18.0); Mean Corpuscular HGB CONC 31.4 g/dL (32.0-36.0); Mean Corpuscular Hemoglobin 31.5 pg (27.0-31.0); Mean Platelet Volume 7.2 fL (7.4-10.4); Platelet Count 306 thou/uL (130-400); RBC Distribution Width 14.2 % (11.5-14.5); Red Blood Cell (RBC) Count 4.66 mill/uL (4.70-6.10); White Blood Cell (WBC) Count 3.8 thou/uL (4.8-10.8)
[2022-01-03 12:19] LABS: Amphetamine Not Detected (NotDetected); Barbiturates Screen Not Detected (NotDetected); Benzodiazepine Screen Detected (NotDetected); Cocaine Metabolite Screen Not Detected (NotDetected); Methadone Not Detected (NotDetected); Methamphetamine Not Detected (NotDetected); Opiate Screen Not Detected (NotDetected); Oxycodone Screen Not Detected (NotDetected); Phencyclidine (PCP) Not Detected (NotDetected); THC/Cannabinoid Screen Not Detected (NotDetected); Tricyclic Screen Not Detected (NotDetected)
[2022-01-03 12:22] LABS: Bacteria/HPF None Seen HPF (None Seen); Bilirubin Negative (Negative); Blood, Urine Negative (Negative); Clarity Clear (Clear); Glucose, Urine (Dipstick) Normal (Negative); Ketone, Urine Negative (Negative); Leukocyte 25 Leu/uL (Negative); Nitrite Negative (Negative); Protein, Urine (Dipstick) 30 mg/dL (Neg-Trace); RBC/HPF 0-3 HPF (0-3); Squamous Epithelial 0-3 HPF (0-3); Urobilinogen Normal mg/dL (Less than 2); WBC/HPF 0-3 HPF (0-3); pH, Urine 5.5 (5.0-9.0)
[2022-01-03 12:30] LABS: Alcohol Less than 10 mg/dL (Less than 10); Salicylate Less than 8.0 mg/dL (15.0-30.0)
[2022-01-03 12:32] LABS: ALT (SGPT) 2280 U/L (8-55); AST (SGOT) 1959 U/L (5-34); Albumin 4.1 g/dL (3.4-4.8); Alkaline Phosphatase 116 U/L (40-110); Anion Gap 25 mmol/L (10-20); BUN (Urea Nitrogen) 36 mg/dL (8.4-25.7); Calc. Creatinine Clearance 0 mL/min (70-130); Calcium 9.1 mg/dL (7.8-10.44); Carbon Dioxide 11 mmol/L (23-31); Chloride 110 mmol/L (98-107); Estimated GFR 29; Globulin 2.7 g/dL (2.4-3.5); Glucose 93 mg/dL (83-110); Potassium 4.4 mmol/L (3.5-5.1); Protein, Total 6.8 g/dL (5.8-8.1); Sodium 142 mmol/L (136-145)
[2022-01-03] MEDS ORDERED: Acetylcysteine 20% (200mg/mL) 15,000 MG in Dextrose 5% in Water 200 ML IV SCH (14:45)
[2022-01-03 15:44] LABS: SARS-CoV-2 NAA Rapid Test DETECTED (NotDetected)
[2022-01-03] MEDS ORDERED: Acetylcysteine 20% (200mg/mL) 5,000 MG in Dextrose 5% in Water 500 ML IV SCH (15:45)
[2022-01-03] MEDS ORDERED: Ondansetron ODT 4 MG TAB PO PRN (15:55)
[2022-01-03] MEDS ORDERED: diphenhydrAMINE 50 MG/ML VIAL IVP PRN ×2 (18:00)
[2022-01-03] MEDS ORDERED: diphenhydrAMINE 25 MG CAP PO PRN ×2 (18:00)
[2022-01-03] MEDS ORDERED: Folic Acid 1 MG TAB PO SCH (18:45)
[2022-01-03] MEDS ORDERED: Multivit, Therapeutic 1 TAB PO SCH (18:45)
[2022-01-03] MEDS ORDERED: Acetylcysteine 20% (200mg/mL) 10,000 MG in Dextrose 5% in Water 1,000 ML IV SCH (19:45)
[2022-01-03] MEDS: Ondansetron PF 4 MG/2 ML Vial IVP PRN (20:54)
[2022-01-03] MEDS ORDERED: Gabapentin 100 MG CAP PO SCH (21:00)
[2022-01-03 21:12] LABS: Magnesium 2.3 mg/dL (1.6-2.6); Phosphorus 4.3 mg/dL (2.3-4.7)
[2022-01-04] MEDS: Benzonatate 100 MG CAP PO PRN (03:10)
[2022-01-04 03:48] LABS: #Lymphocytes 0.9 thou/uL (1.20-3.40); #Monocytes 0.2 thou/uL (0.11-0.59); #Neutrophils 4.8 thou/uL (1.40-6.50); %Basophils 0.2 % (0.0-1.0); %Eosinophils 0.2 % (0.0-10.0); %Lymphocytes 14.8 % (21.0-51.0); %Monocytes 3.9 % (0.0-10.0); %Neutrophils 80.8 % (42.0-75.0); Hemoglobin 16.3 g/dL (14.0-18.0); Mean Corpuscular HGB CONC 31.8 g/dL (32.0-36.0); Mean Corpuscular Hemoglobin 31.8 pg (27.0-31.0); Mean Corpuscular Volume 99.8 fL (78.0-98.0); Mean Platelet Volume 7.9 fL (7.4-10.4); Platelet Count 283 thou/uL (130-400); RBC Distribution Width 14.6 % (11.5-14.5); Red Blood Cell (RBC) Count 5.15 mill/uL (4.70-6.10); White Blood Cell (WBC) Count 5.9 thou/uL (4.8-10.8)
[2022-01-04 04:12] LABS: ALT (SGPT) 3062 U/L (8-55); AST (SGOT) 2329 U/L (5-34); Albumin 3.6 g/dL (3.4-4.8); Alkaline Phosphatase 132 U/L (40-110); Anion Gap 30 mmol/L (10-20); BUN (Urea Nitrogen) 36 mg/dL (8.4-25.7); Bilirubin, Total 2.7 mg/dL (0.2-1.2); Calc. Creatinine Clearance 30 mL/min (70-130); Calcium 9.1 mg/dL (7.8-10.44); Chloride 107 mmol/L (98-107); Estimated GFR 30; Globulin 3.3 g/dL (2.4-3.5); Glucose 141 mg/dL (83-110); Potassium 3.6 mmol/L (3.5-5.1); Protein, Total 6.9 g/dL (5.8-8.1); Sodium 142 mmol/L (136-145)
[2022-01-04 04:17] LABS: Carbon Dioxide 9 mmol/L (23-31)
[2022-01-04] MEDS ORDERED: Sodium Bicarbonate 150 MEQ in Dextrose 5% in Water 1,000 ML IV SCH ×3 (05:00→12:00)
[2022-01-04 08:16] LABS: INR-International Normal Ratio 2.4; PTT 43.8 sec (22.9-36.1); Prothrombin Time 26.3 sec (12.0-14.7)
[2022-01-04 08:34] LABS: Lactic Acid 2.8 mmol/L (0.5-2.2)
[2022-01-04] MEDS: Folic Acid 1 MG TAB PO SCH (08:42)
[2022-01-04] MEDS: Multivit, Therapeutic 1 TAB PO SCH (08:42)
[2022-01-04] MEDS: Pantoprazole 40 MG VIAL IVP SCH ×2 (08:43→19:49)
[2022-01-04] MEDS: Thiamine 100 MG TAB PO SCH (08:43)
[2022-01-04] MEDS: Tamsulosin HCl 0.4 MG CAP PO SCH (08:43)
[2022-01-04] MEDS: Ondansetron PF 4 MG/2 ML Vial IVP PRN (08:45)
[2022-01-04] MEDS ORDERED: Furosemide 20 MG TAB PO SCH (09:00)
[2022-01-04] MEDS ORDERED: Lisinopril 20 MG TAB PO SCH (09:00)
[2022-01-04] MEDS ORDERED: Multivitamin W/ Minerals 1 TAB PO SCH (09:00)
[2022-01-04] MEDS ORDERED: PAROXETINE HCL 30 MG PO SCH (09:00)
[2022-01-04] MEDS ORDERED: Enoxaparin Sodium 40 MG/0.4 ML SYRINGE SC SCH (09:00)
[2022-01-04 11:50] LABS: Syphilis Antibody Nonreactive (Nonreactive); Syphilis Antibody Index 0.05 S/CO (<1.00 Non-Reactive)
[2022-01-04 12:00] LABS: INR-International Normal Ratio 2.5; PTT 45.9 sec (22.9-36.1); Prothrombin Time 27.4 sec (12.0-14.7)
[2022-01-04] MEDS: Phytonadione 10 MG in Sodium Chloride 0.9% 50 ML IVPB SCH (12:05)
[2022-01-04 12:20] LABS: AST (SGOT) 2210 U/L (5-34); Bilirubin, Direct 1.2 mg/dL (0.1-0.3); Bilirubin, Total 2.6 mg/dL (0.2-1.2); Protein, Total 6.9 g/dL (5.8-8.1)
[2022-01-04 12:21] LABS: ALT (SGPT) 3093 U/L (8-55); Albumin 3.4 g/dL (3.4-4.8); Alkaline Phosphatase 126 U/L (40-110)
[2022-01-04] MEDS ORDERED: Acetylcysteine 20% (200mg/mL) 7,600 MG in Dextrose 5% in Water 1,000 ML IV SCH (13:00)
[2022-01-04] MEDS: Rifaximin 550 MG TAB PO SCH (19:50)
[2022-01-05 04:25] LABS: #Basophils 0.1 thou/uL (0.0-0.2); #Eosinphils 0.1 thou/uL (0.0-0.7); #Lymphocytes 0.7 thou/uL (1.20-3.40); #Monocytes 0.3 thou/uL (0.11-0.59); #Neutrophils 5.6 thou/uL (1.40-6.50); %Basophils 0.7 % (0.0-1.0); %Lymphocytes 10.9 % (21.0-51.0); %Monocytes 5.1 % (0.0-10.0); %Neutrophils 82.3 % (42.0-75.0); Hemoglobin 14.6 g/dL (14.0-18.0); Mean Corpuscular HGB CONC 33.5 g/dL (32.0-36.0); Mean Corpuscular Hemoglobin 32.2 pg (27.0-31.0); Mean Platelet Volume 7.9 fL (7.4-10.4); Platelet Count 215 thou/uL (130-400); RBC Distribution Width 14.6 % (11.5-14.5); Red Blood Cell (RBC) Count 4.54 mill/uL (4.70-6.10); White Blood Cell (WBC) Count 6.8 thou/uL (4.8-10.8)
[2022-01-05 04:36] LABS: INR-International Normal Ratio 1.9; Prothrombin Time 22.5 sec (12.0-14.7)
[2022-01-05 04:46] LABS: ALT (SGPT) 2271 U/L (8-55); AST (SGOT) 1252 U/L (5-34); Alkaline Phosphatase 121 U/L (40-110); Anion Gap 26 mmol/L (10-20); BUN (Urea Nitrogen) 48 mg/dL (8.4-25.7); Bilirubin, Total 2.2 mg/dL (0.2-1.2); Calc. Creatinine Clearance 21 mL/min (70-130); Calcium 8.2 mg/dL (7.8-10.44); Carbon Dioxide 17 mmol/L (23-31); Chloride 97 mmol/L (98-107); Estimated GFR 19; Globulin 2.6 g/dL (2.4-3.5); Glucose 128 mg/dL (83-110); Protein, Total 5.6 g/dL (5.8-8.1); Sodium 137 mmol/L (136-145)
[2022-01-05 04:47] LABS: ALT (SGPT) 2270 U/L (8-55); AST (SGOT) 1239 U/L (5-34); Acetaminophen Less than 10.0 mcg/mL (10.0-30.0); Albumin 3.1 g/dL (3.4-4.8); Alkaline Phosphatase 122 U/L (40-110); Bilirubin, Direct 1.2 mg/dL (0.1-0.3); Bilirubin, Total 2.2 mg/dL (0.2-1.2); Protein, Total 5.7 g/dL (5.8-8.1)
[2022-01-05 04:50] LABS: Potassium 2.9 mmol/L (3.5-5.1)
[2022-01-05] MEDS: Potassium Chloride 20 MEQ in Premix Bag 1 BAG IVPB SCH ×2 (05:56→08:03)
[2022-01-05] MEDS ORDERED: Potassium Chloride 20 MEQ TAB PO SCH (06:00)
[2022-01-05] MEDS ORDERED: Acetylcysteine 20% (200mg/mL) 10,000 MG in Dextrose 5% in Water 1,000 ML IV SCH ×2 (07:30→23:59)
[2022-01-05] MEDS: Pantoprazole 40 MG VIAL IVP SCH ×2 (08:04→20:32)
[2022-01-05] MEDS: Folic Acid 1 MG TAB PO SCH (08:04)
[2022-01-05] MEDS: Thiamine 100 MG TAB PO SCH (08:04)
[2022-01-05] MEDS: Tamsulosin HCl 0.4 MG CAP PO SCH (08:04)
[2022-01-05] MEDS: Rifaximin 550 MG TAB PO SCH ×2 (08:04→20:31)
[2022-01-05] MEDS: Multivit, Therapeutic 1 TAB PO SCH (08:04)
[2022-01-05] MEDS ORDERED: NS 0.9% w/ 20 MEQ KCL 1,000 ML/1,000 ML BAG IV SCH (12:00)
[2022-01-05] MEDS: Phytonadione 10 MG in Sodium Chloride 0.9% 50 ML IVPB SCH (12:09)
[2022-01-05 13:39] LABS: ALT (SGPT) 2064 U/L (8-55); AST (SGOT) 994 U/L (5-34); Albumin 3.1 g/dL (3.4-4.8); Alkaline Phosphatase 130 U/L (40-110); Anion Gap 28 mmol/L (10-20); BUN (Urea Nitrogen) 50 mg/dL (8.4-25.7); Bilirubin, Total 2.3 mg/dL (0.2-1.2); Calc. Creatinine Clearance 20 mL/min (70-130); Calcium 8.7 mg/dL (7.8-10.44); Carbon Dioxide 16 mmol/L (23-31); Chloride 97 mmol/L (98-107); Estimated GFR 17; Globulin 2.7 g/dL (2.4-3.5); Glucose 119 mg/dL (83-110); Potassium 3.8 mmol/L (3.5-5.1); Protein, Total 5.8 g/dL (5.8-8.1); Sodium 137 mmol/L (136-145)
[2022-01-05] MEDS: Midodrine HCl 5 MG TAB PO SCH ×2 (14:29→20:31)
[2022-01-05] MEDS ORDERED: Sodium Chloride 0.9% 500 ML IV SCH (16:00)
[2022-01-05] MEDS: Sodium Chloride 0.9% 1,000 ML IV SCH (17:31)
[2022-01-05 18:48] LABS: Bacteria/HPF 2+ HPF (None Seen); Bilirubin Negative (Negative); Blood, Urine 1+ (Negative); Clarity Turbid (Clear); Glucose, Urine (Dipstick) Normal (Negative); Ketone, Urine 10 mg/dL (Negative); Leukocyte 500 Leu/uL (Negative); Nitrite Negative (Negative); Protein, Urine (Dipstick) 10 mg/dL (Neg-Trace); Renal Epithelial 0-3 HPF (None Seen); Specific Gravity, Urine 1.022 (1.002-1.036); Squamous Epithelial None Seen HPF (0-3); Urobilinogen Normal mg/dL (Less than 2); WBC/HPF Greater than 50 HPF (0-3); Yeast-Budding 2+ HPF (None Seen)
[2022-01-05 18:56] LABS: Creatinine, Urine 73.69 mg/dL (63-166)
[2022-01-05 20:19] LABS: #Eosinphils 0.1 thou/uL (0.0-0.7); #Lymphocytes 0.8 thou/uL (1.20-3.40); #Monocytes 0.5 thou/uL (0.11-0.59); #Neutrophils 5.7 thou/uL (1.40-6.50); %Basophils 0.1 % (0.0-1.0); %Eosinophils 1.2 % (0.0-10.0); %Lymphocytes 11.7 % (21.0-51.0); %Monocytes 6.3 % (0.0-10.0); %Neutrophils 80.7 % (42.0-75.0); Hemoglobin 13.3 g/dL (14.0-18.0); Mean Corpuscular HGB CONC 32.3 g/dL (32.0-36.0); Mean Corpuscular Hemoglobin 31.1 pg (27.0-31.0); Mean Corpuscular Volume 96.4 fL (78.0-98.0); Mean Platelet Volume 7.8 fL (7.4-10.4); Platelet Count 205 thou/uL (130-400); RBC Distribution Width 14.8 % (11.5-14.5); Red Blood Cell (RBC) Count 4.27 mill/uL (4.70-6.10); White Blood Cell (WBC) Count 7.1 thou/uL (4.8-10.8)
[2022-01-05 20:30] LABS: INR-International Normal Ratio 1.5; Prothrombin Time 18.1 sec (12.0-14.7)
[2022-01-05 20:31] LABS: PTT 36.4 sec (22.9-36.1)
[2022-01-05 20:40] LABS: ALT (SGPT) 1733 U/L (8-55); AST (SGOT) 724 U/L (5-34); Albumin 2.8 g/dL (3.4-4.8); Alkaline Phosphatase 128 U/L (40-110); Anion Gap 24 mmol/L (10-20); BUN (Urea Nitrogen) 50 mg/dL (8.4-25.7); Bilirubin, Total 2.1 mg/dL (0.2-1.2); Calc. Creatinine Clearance 22 mL/min (70-130); Calcium 8.2 mg/dL (7.8-10.44); Carbon Dioxide 16 mmol/L (23-31); Chloride 100 mmol/L (98-107); Estimated GFR 19; Globulin 2.6 g/dL (2.4-3.5); Glucose 112 mg/dL (83-110); Potassium 3.4 mmol/L (3.5-5.1); Protein, Total 5.4 g/dL (5.8-8.1); Sodium 137 mmol/L (136-145)
[2022-01-06] MEDS: Sodium Chloride 0.9% 1,000 ML IV SCH ×2 (05:08→17:32)
[2022-01-06] MEDS ORDERED: Potassium Chloride 20 MEQ TAB PO SCH (07:00)
[2022-01-06] MEDS: Rifaximin 550 MG TAB PO SCH ×2 (09:11→20:34)
[2022-01-06] MEDS: Tamsulosin HCl 0.4 MG CAP PO SCH (09:12)
[2022-01-06] MEDS: Midodrine HCl 5 MG TAB PO SCH ×3 (09:12→20:34)
[2022-01-06] MEDS: Thiamine 100 MG TAB PO SCH (09:12)
[2022-01-06] MEDS: Multivit, Therapeutic 1 TAB PO SCH (09:12)
[2022-01-06] MEDS: Folic Acid 1 MG TAB PO SCH (09:12)
[2022-01-06] MEDS: Pantoprazole 40 MG VIAL IVP SCH ×2 (09:13→20:34)
[2022-01-06] MEDS: Phytonadione 10 MG in Sodium Chloride 0.9% 50 ML IVPB SCH (11:51)
[2022-01-06 15:04] LABS: INR-International Normal Ratio 1.3; Prothrombin Time 16.4 sec (12.0-14.7)
[2022-01-06 15:05] LABS: PTT 38.8 sec (22.9-36.1)
[2022-01-06 15:40] LABS: ALT (SGPT) 1292 U/L (8-55); AST (SGOT) 410 U/L (5-34); Albumin 2.8 g/dL (3.4-4.8); Alkaline Phosphatase 137 U/L (40-110); Anion Gap 18 mmol/L (10-20); BUN (Urea Nitrogen) 38 mg/dL (8.4-25.7); Bilirubin, Total 2.5 mg/dL (0.2-1.2); Calc. Creatinine Clearance 31 mL/min (70-130); Calcium 8.6 mg/dL (7.8-10.44); Carbon Dioxide 17 mmol/L (23-31); Chloride 105 mmol/L (98-107); Estimated GFR 28; Globulin 2.9 g/dL (2.4-3.5); Glucose 96 mg/dL (83-110); Potassium 3.6 mmol/L (3.5-5.1); Protein, Total 5.7 g/dL (5.8-8.1); Sodium 136 mmol/L (136-145)
[2022-01-06] MEDS ORDERED: Acetylcysteine 20% (200mg/mL) 10,000 MG in Dextrose 5% in Water 1,000 ML IV SCH (16:00)
[2022-01-07 05:15] LABS: #Eosinphils 0.1 thou/uL (0.0-0.7); #Lymphocytes 0.7 thou/uL (1.20-3.40); #Monocytes 0.5 thou/uL (0.11-0.59); #Neutrophils 4.8 thou/uL (1.40-6.50); %Basophils 0.2 % (0.0-1.0); %Eosinophils 1.4 % (0.0-10.0); %Lymphocytes 11.5 % (21.0-51.0); %Monocytes 8.1 % (0.0-10.0); %Neutrophils 78.9 % (42.0-75.0); Hemoglobin 11.7 g/dL (14.0-18.0); Mean Corpuscular HGB CONC 32.6 g/dL (32.0-36.0); Mean Corpuscular Hemoglobin 31.3 pg (27.0-31.0); Mean Platelet Volume 7.7 fL (7.4-10.4); Platelet Count 166 thou/uL (130-400); RBC Distribution Width 14.7 % (11.5-14.5); Red Blood Cell (RBC) Count 3.74 mill/uL (4.70-6.10)
[2022-01-07 05:24] LABS: INR-International Normal Ratio 1.4; Prothrombin Time 16.8 sec (12.0-14.7)
[2022-01-07 05:47] LABS: ALT (SGPT) 915 U/L (8-55); AST (SGOT) 227 U/L (5-34); Albumin 2.6 g/dL (3.4-4.8); Alkaline Phosphatase 128 U/L (40-110); Anion Gap 12 mmol/L (10-20); BUN (Urea Nitrogen) 29 mg/dL (8.4-25.7); Calc. Creatinine Clearance 52 mL/min (70-130); Calcium 8.6 mg/dL (7.8-10.44); Carbon Dioxide 20 mmol/L (23-31); Chloride 106 mmol/L (98-107); Estimated GFR 53; Globulin 2.3 g/dL (2.4-3.5); Glucose 93 mg/dL (83-110); Potassium 3.4 mmol/L (3.5-5.1); Protein, Total 4.9 g/dL (5.8-8.1); Sodium 135 mmol/L (136-145)
[2022-01-07] MEDS: Sodium Chloride 0.9% 1,000 ML IV SCH ×2 (06:09→20:55)
[2022-01-07] MEDS ORDERED: Acetylcysteine 20% (200mg/mL) 10,000 MG in Dextrose 5% in Water 1,000 ML IV SCH ×2 (08:00→23:45)
[2022-01-07] MEDS: Pantoprazole 40 MG VIAL IVP SCH ×2 (09:09→20:29)
[2022-01-07] MEDS: Tamsulosin HCl 0.4 MG CAP PO SCH (09:10)
[2022-01-07] MEDS: Midodrine HCl 5 MG TAB PO SCH ×2 (09:10→14:00)
[2022-01-07] MEDS: Rifaximin 550 MG TAB PO SCH ×2 (09:10→20:29)
[2022-01-07] MEDS: Multivit, Therapeutic 1 TAB PO SCH (09:10)
[2022-01-07] MEDS: Thiamine 100 MG TAB PO SCH (09:10)
[2022-01-07] MEDS: Folic Acid 1 MG TAB PO SCH (09:10)
[2022-01-07] MEDS ORDERED: Potassium Chloride 20 MEQ in Premix Bag 1 BAG IVPB SCH (10:00)
[2022-01-07] MEDS ORDERED: Ondansetron ODT 4 MG TAB PO SCH (10:00)
[2022-01-07] MEDS ORDERED: Enoxaparin Sodium 30 MG/0.3 ML SYRINGE SC SCH (12:30)
[2022-01-07] MEDS: Ondansetron ODT 4 MG TAB PO SCH ×2 (14:00→20:55)
[2022-01-07 20:45] LABS: INR-International Normal Ratio 1.3; Prothrombin Time 16.3 sec (12.0-14.7)
[2022-01-07 20:46] LABS: PTT 39.8 sec (22.9-36.1)
[2022-01-07 20:57] LABS: ALT (SGPT) 722 U/L (8-55); AST (SGOT) 142 U/L (5-34); Albumin 2.6 g/dL (3.4-4.8); Alkaline Phosphatase 141 U/L (40-110); Anion Gap 12 mmol/L (10-20); BUN (Urea Nitrogen) 23 mg/dL (8.4-25.7); Bilirubin, Total 3.2 mg/dL (0.2-1.2); Calc. Creatinine Clearance 62 mL/min (70-130); Calcium 8.7 mg/dL (7.8-10.44); Carbon Dioxide 19 mmol/L (23-31); Chloride 110 mmol/L (98-107); Estimated GFR 65; Globulin 2.4 g/dL (2.4-3.5); Glucose 112 mg/dL (83-110); Potassium 3.4 mmol/L (3.5-5.1); Sodium 138 mmol/L (136-145)
[2022-01-08] MEDS ORDERED: Gabapentin 300 MG CAP PO SCH (04:30)
[2022-01-08] MEDS: Ondansetron ODT 4 MG TAB PO SCH (06:10)
[2022-01-08] MEDS: Thiamine 100 MG TAB PO SCH (08:41)
[2022-01-08] MEDS: Pantoprazole 40 MG VIAL IVP SCH ×2 (08:41→20:07)
[2022-01-08] MEDS: Multivit, Therapeutic 1 TAB PO SCH (08:41)
[2022-01-08] MEDS: Folic Acid 1 MG TAB PO SCH (08:41)
[2022-01-08] MEDS: Rifaximin 550 MG TAB PO SCH (08:41)
[2022-01-08] MEDS: Sodium Chloride 0.9% 1,000 ML IV SCH (08:57)
[2022-01-08] MEDS ORDERED: Enoxaparin Sodium 30 MG/0.3 ML SYRINGE SC SCH (09:00)
[2022-01-08] MEDS ORDERED: Potassium Chloride 20 MEQ TAB PO SCH (09:30)
[2022-01-08] MEDS ORDERED: Ondansetron ODT 4 MG TAB PO PRN (10:57)
[2022-01-08] MEDS ORDERED: Tamsulosin HCl 0.4 MG CAP PO SCH (11:45)
[2022-01-08] MEDS ORDERED: Lisinopril 20 MG TAB PO SCH (11:45)
[2022-01-08] MEDS ORDERED: Acetylcysteine 20% (200mg/mL) 10,000 MG in Dextrose 5% in Water 1,000 ML IV SCH (15:45)
[2022-01-09 06:17] LABS: #Eosinphils 0.1 thou/uL (0.0-0.7); #Lymphocytes 0.8 thou/uL (1.20-3.40); #Monocytes 0.9 thou/uL (0.11-0.59); #Neutrophils 5.3 thou/uL (1.40-6.50); %Basophils 0.1 % (0.0-1.0); %Eosinophils 1.6 % (0.0-10.0); %Lymphocytes 10.8 % (21.0-51.0); %Monocytes 12.9 % (0.0-10.0); %Neutrophils 74.6 % (42.0-75.0); Hemoglobin 10.7 g/dL (14.0-18.0); Mean Corpuscular HGB CONC 31.8 g/dL (32.0-36.0); Mean Corpuscular Hemoglobin 31.2 pg (27.0-31.0); Platelet Count 163 thou/uL (130-400); RBC Distribution Width 14.8 % (11.5-14.5); Red Blood Cell (RBC) Count 3.44 mill/uL (4.70-6.10); White Blood Cell (WBC) Count 7.1 thou/uL (4.8-10.8)
[2022-01-09 06:39] LABS: ALT (SGPT) 492 U/L (8-55); AST (SGOT) 122 U/L (5-34); Albumin 2.6 g/dL (3.4-4.8); Alkaline Phosphatase 210 U/L (40-110); Anion Gap 11 mmol/L (10-20); BUN (Urea Nitrogen) 18 mg/dL (8.4-25.7); Bilirubin, Total 2.9 mg/dL (0.2-1.2); Calc. Creatinine Clearance 83 mL/min (70-130); Carbon Dioxide 21 mmol/L (23-31); Chloride 111 mmol/L (98-107); Estimated GFR 89; Globulin 2.4 g/dL (2.4-3.5); Glucose 101 mg/dL (83-110); Potassium 3.7 mmol/L (3.5-5.1); Sodium 139 mmol/L (136-145)
[2022-01-09] MEDS: Thiamine 100 MG TAB PO SCH (08:23)
[2022-01-09] MEDS: Tamsulosin HCl 0.4 MG CAP PO SCH (08:23)
[2022-01-09] MEDS: Lisinopril 20 MG TAB PO SCH (08:23)
[2022-01-09] MEDS: Potassium Chloride 20 MEQ TAB PO SCH (08:23)
[2022-01-09] MEDS: Multivit, Therapeutic 1 TAB PO SCH (08:23)
[2022-01-09] MEDS: Folic Acid 1 MG TAB PO SCH (08:24)
[2022-01-09] MEDS: Enoxaparin Sodium 40 MG/0.4 ML SYRINGE SC SCH (08:24)
[2022-01-09] MEDS: Pantoprazole 40 MG VIAL IVP SCH (08:24)
[2022-01-09 12:51] VITALS: BMI 28.3
[2022-01-09] MEDS: Benzonatate 100 MG CAP PO PRN (19:47)
[2022-01-10] MEDS: guaiFENesin 200 MG TAB PO PRN ×2 (05:03→17:04)
[2022-01-10 05:39] LABS: #Eosinphils 0.3 thou/uL (0.0-0.7); #Lymphocytes 0.8 thou/uL (1.20-3.40); #Monocytes 0.9 thou/uL (0.11-0.59); #Neutrophils 4.3 thou/uL (1.40-6.50); %Basophils 0.3 % (0.0-1.0); %Eosinophils 4.2 % (0.0-10.0); %Monocytes 14.7 % (0.0-10.0); %Neutrophils 67.9 % (42.0-75.0); Hemoglobin 10.9 g/dL (14.0-18.0); Mean Corpuscular HGB CONC 31.8 g/dL (32.0-36.0); Mean Corpuscular Hemoglobin 31.3 pg (27.0-31.0); Mean Corpuscular Volume 98.3 fL (78.0-98.0); Mean Platelet Volume 7.6 fL (7.4-10.4); Platelet Count 189 thou/uL (130-400); RBC Distribution Width 14.9 % (11.5-14.5); Red Blood Cell (RBC) Count 3.49 mill/uL (4.70-6.10); White Blood Cell (WBC) Count 6.4 thou/uL (4.8-10.8)
[2022-01-10 06:03] LABS: ALT (SGPT) 385 U/L (8-55); AST (SGOT) 75 U/L (5-34); Albumin 2.8 g/dL (3.4-4.8); Alkaline Phosphatase 223 U/L (40-110); Anion Gap 10 mmol/L (10-20); BUN (Urea Nitrogen) 18 mg/dL (8.4-25.7); Bilirubin, Total 2.5 mg/dL (0.2-1.2); Calc. Creatinine Clearance 89 mL/min (70-130); Calcium 9.1 mg/dL (7.8-10.44); Carbon Dioxide 22 mmol/L (23-31); Chloride 111 mmol/L (98-107); Estimated GFR 91; Globulin 2.5 g/dL (2.4-3.5); Glucose 89 mg/dL (83-110); Potassium 3.9 mmol/L (3.5-5.1); Protein, Total 5.3 g/dL (5.8-8.1); Sodium 139 mmol/L (136-145)
[2022-01-10] MEDS: Enoxaparin Sodium 40 MG/0.4 ML SYRINGE SC SCH (07:59)
[2022-01-10] MEDS: Tamsulosin HCl 0.4 MG CAP PO SCH (07:59)
[2022-01-10] MEDS: Potassium Chloride 20 MEQ TAB PO SCH (07:59)
[2022-01-10] MEDS: Thiamine 100 MG TAB PO SCH (07:59)
[2022-01-10] MEDS: Multivit, Therapeutic 1 TAB PO SCH (07:59)
[2022-01-10] MEDS: Lisinopril 20 MG TAB PO SCH (07:59)
[2022-01-10] MEDS: Folic Acid 1 MG TAB PO SCH (07:59)
[2022-01-10] MEDS: Benzonatate 100 MG CAP PO PRN ×3 (16:20→23:42)
[2022-01-11] MEDS: Benzonatate 100 MG CAP PO PRN ×4 (03:58→20:03)
[2022-01-11] MEDS: guaiFENesin 200 MG TAB PO PRN ×4 (03:58→20:03)
[2022-01-11 06:46] LABS: Band 3 % (5-11); Eosinophils 5 % (0-10); Hemoglobin 11.3 g/dL (14.0-18.0); Lymphocytes 14 % (21-51); MDiff Complete? YES; Mean Corpuscular HGB CONC 32.3 g/dL (32.0-36.0); Mean Corpuscular Hemoglobin 31.9 pg (27.0-31.0); Mean Corpuscular Volume 98.6 fL (78.0-98.0); Mean Platelet Volume 7.8 fL (7.4-10.4); Monocytes 13 % (0-10); Neutrophil 65 % (42-75); Platelet Count 192 thou/uL (130-400); RBC Distribution Width 14.8 % (11.5-14.5); Red Blood Cell (RBC) Count 3.55 mill/uL (4.70-6.10); White Blood Cell (WBC) Count 5.8 thou/uL (4.8-10.8)
[2022-01-11 07:05] LABS: ALT (SGPT) 314 U/L (8-55); AST (SGOT) 86 U/L (5-34); Albumin 2.7 g/dL (3.4-4.8); Alkaline Phosphatase 235 U/L (40-110); Anion Gap 10 mmol/L (10-20); BUN (Urea Nitrogen) 19 mg/dL (8.4-25.7); Bilirubin, Total 1.7 mg/dL (0.2-1.2); Calc. Creatinine Clearance 94 mL/min (70-130); Calcium 8.9 mg/dL (7.8-10.44); Carbon Dioxide 24 mmol/L (23-31); Chloride 110 mmol/L (98-107); Estimated GFR 92; Glucose 97 mg/dL (83-110); Potassium 4.1 mmol/L (3.5-5.1); Protein, Total 5.7 g/dL (5.8-8.1); Sodium 140 mmol/L (136-145)
[2022-01-11] MEDS: Tamsulosin HCl 0.4 MG CAP PO SCH (07:59)
[2022-01-11] MEDS: Enoxaparin Sodium 40 MG/0.4 ML SYRINGE SC SCH (07:59)
[2022-01-11] MEDS: Folic Acid 1 MG TAB PO SCH (08:00)
[2022-01-11] MEDS: Lisinopril 20 MG TAB PO SCH (08:00)
[2022-01-11] MEDS: Potassium Chloride 20 MEQ TAB PO SCH (08:00)
[2022-01-11] MEDS: Multivit, Therapeutic 1 TAB PO SCH (08:00)
[2022-01-11] MEDS: Thiamine 100 MG TAB PO SCH (08:00)
[2022-01-11] MEDS ORDERED: Polyethylene Glycol 3350 17 GM Packet PO SCH (12:15)
[2022-01-12] MEDS: Benzonatate 100 MG CAP PO PRN ×2 (00:59→05:55)
[2022-01-12] MEDS: guaiFENesin 200 MG TAB PO PRN ×3 (05:55→21:22)
[2022-01-12 06:27] LABS: ALT (SGPT) 275 U/L (8-55); AST (SGOT) 82 U/L (5-34); Albumin 2.8 g/dL (3.4-4.8); Alkaline Phosphatase 212 U/L (40-110); Anion Gap 11 mmol/L (10-20); BUN (Urea Nitrogen) 22 mg/dL (8.4-25.7); Bilirubin, Total 1.5 mg/dL (0.2-1.2); Calc. Creatinine Clearance 96 mL/min (70-130); Carbon Dioxide 23 mmol/L (23-31); Chloride 107 mmol/L (98-107); Estimated GFR 93; Globulin 2.7 g/dL (2.4-3.5); Glucose 91 mg/dL (83-110); Protein, Total 5.5 g/dL (5.8-8.1); Sodium 137 mmol/L (136-145)
[2022-01-12 06:56] LABS: Band 2 % (5-11); Eosinophils 3 % (0-10); Hemoglobin 10.9 g/dL (14.0-18.0); Lymphocytes 15 % (21-51); MDiff Complete? YES; Mean Corpuscular HGB CONC 31.4 g/dL (32.0-36.0); Mean Corpuscular Hemoglobin 30.8 pg (27.0-31.0); Mean Corpuscular Volume 98.2 fL (78.0-98.0); Mean Platelet Volume 8.1 fL (7.4-10.4); Monocytes 15 % (0-10); Neutrophil 65 % (42-75); Platelet Count 206 thou/uL (130-400); Red Blood Cell (RBC) Count 3.52 mill/uL (4.70-6.10); White Blood Cell (WBC) Count 5.8 thou/uL (4.8-10.8)
[2022-01-12] MEDS ORDERED: Polyethylene Glycol 3350 17 GM Packet PO PRN (08:00)
[2022-01-12] MEDS: Multivit, Therapeutic 1 TAB PO SCH (09:05)
[2022-01-12] MEDS: Tamsulosin HCl 0.4 MG CAP PO SCH (09:05)
[2022-01-12] MEDS: Folic Acid 1 MG TAB PO SCH (09:05)
[2022-01-12] MEDS: Thiamine 100 MG TAB PO SCH (09:05)
[2022-01-12] MEDS: Potassium Chloride 20 MEQ TAB PO SCH (09:06)
[2022-01-12] MEDS: Lisinopril 20 MG TAB PO SCH (09:06)
[2022-01-12] MEDS: Enoxaparin Sodium 40 MG/0.4 ML SYRINGE SC SCH (09:06)
[2022-01-12] MEDS: Polyethylene Glycol 3350 17 GM Packet PO SCH (09:06)
[2022-01-13 07:44] LABS: ALT (SGPT) 296 U/L (8-55); AST (SGOT) 127 U/L (5-34); Albumin 2.9 g/dL (3.4-4.8); Alkaline Phosphatase 205 U/L (40-110); Anion Gap 12 mmol/L (10-20); BUN (Urea Nitrogen) 20 mg/dL (8.4-25.7); Bilirubin, Total 1.6 mg/dL (0.2-1.2); Calc. Creatinine Clearance 89 mL/min (70-130); Calcium 9.3 mg/dL (7.8-10.44); Carbon Dioxide 24 mmol/L (23-31); Chloride 105 mmol/L (98-107); Estimated GFR 91; Glucose 88 mg/dL (83-110); Potassium 4.3 mmol/L (3.5-5.1); Protein, Total 5.9 g/dL (5.8-8.1); Sodium 137 mmol/L (136-145)
[2022-01-13] MEDS: Enoxaparin Sodium 40 MG/0.4 ML SYRINGE SC SCH (09:02)
[2022-01-13] MEDS: Multivit, Therapeutic 1 TAB PO SCH (09:02)
[2022-01-13] MEDS: Potassium Chloride 20 MEQ TAB PO SCH (09:02)
[2022-01-13] MEDS: Polyethylene Glycol 3350 17 GM Packet PO SCH (09:02)
[2022-01-13] MEDS: Thiamine 100 MG TAB PO SCH (09:02)
[2022-01-13] MEDS: Lisinopril 20 MG TAB PO SCH (09:02)
[2022-01-13] MEDS: Tamsulosin HCl 0.4 MG CAP PO SCH (09:02)
[2022-01-13] MEDS: Folic Acid 1 MG TAB PO SCH (09:03)
[2022-01-13] MEDS: guaiFENesin 200 MG TAB PO PRN ×2 (09:08→21:11)
[2022-01-13 09:52] LABS: Band 4 % (5-11); Eosinophils 1 % (0-10); Hemoglobin 11.8 g/dL (14.0-18.0); Lymphocytes 26 % (21-51); MDiff Complete? YES; Mean Corpuscular HGB CONC 32.7 g/dL (32.0-36.0); Mean Corpuscular Hemoglobin 32.2 pg (27.0-31.0); Mean Corpuscular Volume 98.5 fL (78.0-98.0); Mean Platelet Volume 8.2 fL (7.4-10.4); Monocytes 16 % (0-10); Neutrophil 52 % (42-75); Platelet Count 238 thou/uL (130-400); Platelet Morphology Comment Appears Adequate; Polychromasia SLIGHT = 2-3 cells (100X) (0-2/hpf); Reactive Lymphocytes 1 % (0-10); Red Blood Cell (RBC) Count 3.66 mill/uL (4.70-6.10); White Blood Cell (WBC) Count 4.7 thou/uL (4.8-10.8)
[2022-01-14 06:44] LABS: #Basophils 0.1 thou/uL (0.0-0.2); #Eosinphils 0.1 thou/uL (0.0-0.7); #Lymphocytes 0.8 thou/uL (1.20-3.40); #Monocytes 0.7 thou/uL (0.11-0.59); #Neutrophils 3.9 thou/uL (1.40-6.50); %Basophils 1.1 % (0.0-1.0); %Eosinophils 1.8 % (0.0-10.0); %Lymphocytes 14.3 % (21.0-51.0); %Monocytes 13.3 % (0.0-10.0); %Neutrophils 69.5 % (42.0-75.0); Hemoglobin 12.3 g/dL (14.0-18.0); Mean Corpuscular HGB CONC 31.9 g/dL (32.0-36.0); Mean Corpuscular Hemoglobin 31.5 pg (27.0-31.0); Mean Corpuscular Volume 98.8 fL (78.0-98.0); Mean Platelet Volume 7.6 fL (7.4-10.4); Platelet Count 276 thou/uL (130-400); RBC Distribution Width 15.2 % (11.5-14.5); White Blood Cell (WBC) Count 5.6 thou/uL (4.8-10.8)
[2022-01-14 07:04] LABS: ALT (SGPT) 350 U/L (8-55); AST (SGOT) 167 U/L (5-34); Albumin 3.2 g/dL (3.4-4.8); Alkaline Phosphatase 211 U/L (40-110); Anion Gap 11 mmol/L (10-20); BUN (Urea Nitrogen) 20 mg/dL (8.4-25.7); Bilirubin, Total 1.9 mg/dL (0.2-1.2); Calc. Creatinine Clearance 88 mL/min (70-130); Calcium 9.6 mg/dL (7.8-10.44); Carbon Dioxide 27 mmol/L (23-31); Chloride 103 mmol/L (98-107); Estimated GFR 91; Globulin 3.3 g/dL (2.4-3.5); Glucose 97 mg/dL (83-110); Potassium 4.4 mmol/L (3.5-5.1); Protein, Total 6.5 g/dL (5.8-8.1); Sodium 137 mmol/L (136-145)
[2022-01-14] MEDS: Potassium Chloride 20 MEQ TAB PO SCH (08:24)
[2022-01-14] MEDS: Tamsulosin HCl 0.4 MG CAP PO SCH (08:24)
[2022-01-14] MEDS: Thiamine 100 MG TAB PO SCH (08:24)
[2022-01-14] MEDS: Folic Acid 1 MG TAB PO SCH (08:24)
[2022-01-14] MEDS: Lisinopril 20 MG TAB PO SCH (08:24)
[2022-01-14] MEDS: Polyethylene Glycol 3350 17 GM Packet PO SCH (08:24)
[2022-01-14] MEDS: Enoxaparin Sodium 40 MG/0.4 ML SYRINGE SC SCH (08:24)
[2022-01-14] MEDS: Multivit, Therapeutic 1 TAB PO SCH (08:24)
[2022-01-14] MEDS ORDERED: Colchicine 0.6 MG TAB PO SCH ×2 (11:08→12:15)
[2022-01-14] MEDS ORDERED: Ibuprofen 600 MG TAB PO PRN (17:58)
[2022-01-15 07:11] LABS: Hemoglobin 11.5 g/dL (14.0-18.0); Mean Corpuscular HGB CONC 32.1 g/dL (32.0-36.0); Mean Corpuscular Hemoglobin 31.8 pg (27.0-31.0); Mean Corpuscular Volume 99.2 fL (78.0-98.0); Mean Platelet Volume 7.8 fL (7.4-10.4); Platelet Count 288 thou/uL (130-400); RBC Distribution Width 15.1 % (11.5-14.5); Red Blood Cell (RBC) Count 3.61 mill/uL (4.70-6.10); White Blood Cell (WBC) Count 5.1 thou/uL (4.8-10.8)
[2022-01-15 07:30] LABS: ALT (SGPT) 364 U/L (8-55); AST (SGOT) 176 U/L (5-34); Albumin 3.1 g/dL (3.4-4.8); Alkaline Phosphatase 188 U/L (40-110); Anion Gap 12 mmol/L (10-20); BUN (Urea Nitrogen) 25 mg/dL (8.4-25.7); Bilirubin, Total 1.5 mg/dL (0.2-1.2); Calc. Creatinine Clearance 82 mL/min (70-130); Calcium 9.2 mg/dL (7.8-10.44); Carbon Dioxide 24 mmol/L (23-31); Chloride 104 mmol/L (98-107); Estimated GFR 89; Globulin 3.2 g/dL (2.4-3.5); Glucose 96 mg/dL (83-110); Potassium 4.3 mmol/L (3.5-5.1); Protein, Total 6.3 g/dL (5.8-8.1); Sodium 136 mmol/L (136-145)
[2022-01-15 07:59] LABS: Band 4 % (5-11); Eosinophils 2 % (0-10); Lymphocytes 24 % (21-51); MDiff Complete? YES; Monocytes 14 % (0-10); Neutrophil 56 % (42-75); Platelet Morphology Comment Appears Adequate; RBC Morphology Normal
[2022-01-15] MEDS: Folic Acid 1 MG TAB PO SCH (08:18)
[2022-01-15] MEDS: Polyethylene Glycol 3350 17 GM Packet PO SCH (08:18)
[2022-01-15] MEDS: Potassium Chloride 20 MEQ TAB PO SCH (08:18)
[2022-01-15] MEDS: Lisinopril 20 MG TAB PO SCH (08:18)
[2022-01-15] MEDS: Thiamine 100 MG TAB PO SCH (08:19)
[2022-01-15] MEDS: Enoxaparin Sodium 40 MG/0.4 ML SYRINGE SC SCH (08:19)
[2022-01-15] MEDS: Multivit, Therapeutic 1 TAB PO SCH (08:19)
[2022-01-15] MEDS: Tamsulosin HCl 0.4 MG CAP PO SCH (08:19)
[2022-01-15 09:24] VITALS: BP 105/72; TEMP 98.5
== END 2022-01-15 15:24 | DRG 917 ==
LOC: ERS 11:16 → IMCU/EMU 13:49 → T4-B 01-08 20:42
PROVIDERS: ADMIT Student in an Organized Health Care Education/Training Program; ATTEND Student in an Organized Health Care Education/Training Program
DX: T39.1X1A Poisoning by 4-Aminophenol derivatives, accidental (unintentional), initial encounter (principal); K76.7 Hepatorenal syndrome; U07.1 COVID-19; N17.9 Acute kidney failure, unspecified; E87.2 Acidosis; N18.4 Chronic kidney disease, stage 4 (severe); K71.10 Toxic liver disease with hepatic necrosis, without coma; Z51.5 Encounter for palliative care; Z66 Do not resuscitate; N40.0 Benign prostatic hyperplasia without lower urinary tract symptoms; F41.9 Anxiety disorder, unspecified; F32.A Depression, unspecified; M19.90 Unspecified osteoarthritis, unspecified site; E86.1 Hypovolemia; E78.5 Hyperlipidemia, unspecified; F10.20 Alcohol dependence, uncomplicated; I12.9 Hypertensive chronic kidney disease with stage 1 through stage 4 chronic kidney disease, or unspecified chronic kidney disease; D63.1 Anemia in chronic kidney disease; K70.9 Alcoholic liver disease, unspecified; Z96.651 Presence of right artificial knee joint; M25.531 Pain in right wrist; Z79.899 Other long term (current) drug therapy; Z98.890 Other specified postprocedural states; Z85.51 Personal history of malignant neoplasm of bladder
CPT/HCPCS: 36415; 36416; 51701; 80053; 80143; 80306; 80307; 81001; 81003; 81015; 82140; 82570; 83605; 83735; 84100; 84300; 85025; 85610; 85730; 86780; 87077; 87086; 87186; 93005; 97139; C9113; J0132; J1650; J2405; J3430; J3480; J7030; J7050; J7070; Q0162; U0002

== ENCOUNTER 2022-09-03 17:02 | Inpatient (IN) | payer OTHER ==
[2022-09-03 17:50] LABS: #Eosinphils 0.3 thou/uL (0.0-0.7); #Lymphocytes 1.2 thou/uL (1.20-3.40); #Monocytes 0.4 thou/uL (0.11-0.59); #Neutrophils 4.1 thou/uL (1.40-6.50); %Basophils 0.1 % (0.0-1.0); %Eosinophils 4.6 % (0.0-10.0); %Lymphocytes 19.8 % (21.0-51.0); %Monocytes 7.3 % (0.0-10.0); %Neutrophils 68.2 % (42.0-75.0); Hemoglobin 14.3 g/dL (14.0-18.0); Mean Corpuscular HGB CONC 31.9 g/dL (32.0-36.0); Mean Corpuscular Hemoglobin 31.2 pg (27.0-31.0); Mean Corpuscular Volume 97.6 fl (78.0-98.0); Mean Platelet Volume 6.6 fL (7.4-10.4); Platelet Count 249 10x3/uL (130-400); RBC Distribution Width 13.1 % (11.5-14.5); Red Blood Cell (RBC) Count 4.58 mill/uL (4.70-6.10); White Blood Cell (WBC) Count 5.9 10x3/uL (4.8-10.8)
[2022-09-03 18:10] LABS: ALT (SGPT) 11 U/L (8-55); AST (SGOT) 13 U/L (5-34); Albumin 3.8 g/dL (3.4-4.8); Alkaline Phosphatase 100 U/L (40-110); Anion Gap 13 mmol/L (10-20); BUN (Urea Nitrogen) 23 mg/dL (8.4-25.7); Bilirubin, Total 0.8 mg/dL (0.2-1.2); Calc. Creatinine Clearance 0 mL/min (70-130); Calcium 9.2 mg/dL (7.8-10.44); Carbon Dioxide 26 mmol/L (23-31); Chloride 109 mmol/L (98-107); Estimated GFR 61; Globulin 3.1 g/dL (2.4-3.5); Glucose 104 mg/dL (83-110); Potassium 4.7 mmol/L (3.5-5.1); Protein, Total 6.9 g/dL (5.8-8.1); Sodium 143 mmol/L (136-145)
[2022-09-04 00:44] VITALS: BMI 35.6
[2022-09-04] MEDS ORDERED: hydrOXYzine 25 MG TAB PO PRN (02:44)
[2022-09-04 06:23] LABS: #Eosinphils 0.4 thou/uL (0.0-0.7); #Lymphocytes 1.2 thou/uL (1.20-3.40); #Monocytes 0.6 thou/uL (0.11-0.59); #Neutrophils 3.3 thou/uL (1.40-6.50); %Basophils 0.8 % (0.0-1.0); %Eosinophils 7.3 % (0.0-10.0); %Lymphocytes 21.1 % (21.0-51.0); %Monocytes 10.1 % (0.0-10.0); %Neutrophils 60.7 % (42.0-75.0); Hemoglobin 13.9 g/dL (14.0-18.0); Mean Corpuscular HGB CONC 32.6 g/dL (32.0-36.0); Mean Corpuscular Hemoglobin 31.9 pg (27.0-31.0); Mean Corpuscular Volume 97.8 fl (78.0-98.0); Mean Platelet Volume 6.7 fL (7.4-10.4); Platelet Count 235 10x3/uL (130-400); RBC Distribution Width 13.1 % (11.5-14.5); Red Blood Cell (RBC) Count 4.34 mill/uL (4.70-6.10); White Blood Cell (WBC) Count 5.5 10x3/uL (4.8-10.8)
[2022-09-04 07:18] LABS: Anion Gap 13 mmol/L (10-20); BUN (Urea Nitrogen) 20 mg/dL (8.4-25.7); Calc. Creatinine Clearance 95 mL/min (70-130); Calcium 8.9 mg/dL (7.8-10.44); Carbon Dioxide 23 mmol/L (23-31); Chloride 110 mmol/L (98-107); Estimated GFR 81; Glucose 94 mg/dL (83-110); Potassium 4.1 mmol/L (3.5-5.1); Sodium 142 mmol/L (136-145)
[2022-09-04] MEDS: PARoxetine 20 MG TAB PO SCH (09:07)
[2022-09-04] MEDS: Lisinopril 20 MG TAB PO SCH (09:07)
[2022-09-04] MEDS: Furosemide 20 MG TAB PO SCH (09:08)
[2022-09-04] MEDS: Tamsulosin HCl 0.4 MG CAP PO SCH (09:08)
[2022-09-04] MEDS: Atorvastatin Calcium 40 MG TAB PO SCH (22:34)
[2022-09-04] MEDS: Gabapentin 300 MG CAP PO SCH (22:35)
[2022-09-05 06:08] LABS: #Eosinphils 0.4 thou/uL (0.0-0.7); #Lymphocytes 1.2 thou/uL (1.20-3.40); #Monocytes 0.6 thou/uL (0.11-0.59); #Neutrophils 3.6 thou/uL (1.40-6.50); %Basophils 0.4 % (0.0-1.0); %Eosinophils 7.5 % (0.0-10.0); %Lymphocytes 20.8 % (21.0-51.0); %Monocytes 9.8 % (0.0-10.0); %Neutrophils 61.5 % (42.0-75.0); Hemoglobin 13.3 g/dL (14.0-18.0); Mean Corpuscular HGB CONC 32.7 g/dL (32.0-36.0); Mean Corpuscular Hemoglobin 31.9 pg (27.0-31.0); Mean Corpuscular Volume 97.6 fl (78.0-98.0); Mean Platelet Volume 6.9 fL (7.4-10.4); Platelet Count 230 10x3/uL (130-400); Red Blood Cell (RBC) Count 4.17 mill/uL (4.70-6.10); White Blood Cell (WBC) Count 5.8 10x3/uL (4.8-10.8)
[2022-09-05 06:27] LABS: Anion Gap 10 mmol/L (10-20); BUN (Urea Nitrogen) 20 mg/dL (8.4-25.7); Calc. Creatinine Clearance 82 mL/min (70-130); Calcium 8.9 mg/dL (7.8-10.44); Carbon Dioxide 28 mmol/L (23-31); Chloride 106 mmol/L (98-107); Estimated GFR 68; Glucose 90 mg/dL (83-110); Potassium 4.4 mmol/L (3.5-5.1); Sodium 140 mmol/L (136-145)
[2022-09-05] MEDS: Furosemide 20 MG TAB PO SCH (08:31)
[2022-09-05] MEDS: Tamsulosin HCl 0.4 MG CAP PO SCH (08:31)
[2022-09-05] MEDS: Lisinopril 20 MG TAB PO SCH (08:31)
[2022-09-05] MEDS: PARoxetine 20 MG TAB PO SCH (08:31)
[2022-09-05] MEDS ORDERED: Ondansetron ODT 4 MG TAB PO PRN (12:22)
[2022-09-05] MEDS ORDERED: Electrolyte Replacement Protocol 1 EACH FS SCH (12:30)
[2022-09-05] MEDS: Gabapentin 300 MG CAP PO SCH (20:48)
[2022-09-05] MEDS: Atorvastatin Calcium 40 MG TAB PO SCH (21:36)
[2022-09-06] MEDS: PARoxetine 20 MG TAB PO SCH (08:48)
[2022-09-06] MEDS: Multivit, Therapeutic 1 TAB PO SCH (08:48)
[2022-09-06] MEDS: Tamsulosin HCl 0.4 MG CAP PO SCH (08:49)
[2022-09-06] MEDS: Folic Acid 1 MG TAB PO SCH (08:49)
[2022-09-06] MEDS: Furosemide 20 MG TAB PO SCH (08:49)
[2022-09-06] MEDS: Lisinopril 20 MG TAB PO SCH (09:02)
[2022-09-06] MEDS: Gabapentin 300 MG CAP PO SCH (21:02)
[2022-09-06] MEDS: Atorvastatin Calcium 40 MG TAB PO SCH (21:03)
[2022-09-07 06:35] LABS: #Eosinphils 0.4 thou/uL (0.0-0.7); #Lymphocytes 1.4 thou/uL (1.20-3.40); #Monocytes 0.5 thou/uL (0.11-0.59); %Basophils 0.6 % (0.0-1.0); %Eosinophils 7.3 % (0.0-10.0); %Lymphocytes 26.1 % (21.0-51.0); %Neutrophils 56.1 % (42.0-75.0); Hemoglobin 13.2 g/dL (14.0-18.0); Mean Corpuscular Hemoglobin 31.4 pg (27.0-31.0); Mean Platelet Volume 7.1 fL (7.4-10.4); Platelet Count 233 10x3/uL (130-400); Red Blood Cell (RBC) Count 4.22 mill/uL (4.70-6.10); White Blood Cell (WBC) Count 5.3 10x3/uL (4.8-10.8)
[2022-09-07 06:42] LABS: Anion Gap 13 mmol/L (10-20); BUN (Urea Nitrogen) 25 mg/dL (8.4-25.7); Calc. Creatinine Clearance 90 mL/min (70-130); Calcium 8.8 mg/dL (7.8-10.44); Carbon Dioxide 24 mmol/L (23-31); Chloride 105 mmol/L (98-107); Estimated GFR 76; Glucose 87 mg/dL (83-110); Potassium 4.1 mmol/L (3.5-5.1); Sodium 138 mmol/L (136-145)
[2022-09-07] MEDS: Tamsulosin HCl 0.4 MG CAP PO SCH (08:15)
[2022-09-07] MEDS: PARoxetine 20 MG TAB PO SCH (08:16)
[2022-09-07] MEDS: Multivit, Therapeutic 1 TAB PO SCH (08:16)
[2022-09-07] MEDS: Furosemide 20 MG TAB PO SCH (08:16)
[2022-09-07] MEDS: Folic Acid 1 MG TAB PO SCH (08:17)
[2022-09-07] MEDS: Lisinopril 20 MG TAB PO SCH (08:17)
[2022-09-07] MEDS: Atorvastatin Calcium 40 MG TAB PO SCH (21:32)
[2022-09-07] MEDS: Gabapentin 300 MG CAP PO SCH (21:32)
[2022-09-08] MEDS ORDERED: Lisinopril 20 MG TAB PO SCH (10:15)
[2022-09-08] MEDS: PARoxetine 20 MG TAB PO SCH (11:34)
[2022-09-08] MEDS: Tamsulosin HCl 0.4 MG CAP PO SCH (11:34)
[2022-09-08] MEDS: Folic Acid 1 MG TAB PO SCH (11:35)
[2022-09-08] MEDS: Multivit, Therapeutic 1 TAB PO SCH (11:35)
[2022-09-08] MEDS: Furosemide 20 MG TAB PO SCH (11:35)
[2022-09-08] MEDS: Lisinopril 20 MG TAB PO SCH (14:25)
[2022-09-08] MEDS: Thiamine 100 MG TAB PO SCH (14:46)
[2022-09-08] MEDS: Diclofenac 1% 100 GM GEL TP PRN ×2 (14:46→20:20)
[2022-09-08] MEDS: Gabapentin 300 MG CAP PO SCH (20:14)
[2022-09-08] MEDS: Atorvastatin Calcium 40 MG TAB PO SCH (20:14)
[2022-09-08] MEDS: Acetaminophen 325 MG TAB PO PRN (20:15)
[2022-09-09] MEDS: Furosemide 20 MG TAB PO SCH (08:31)
[2022-09-09] MEDS: PARoxetine 20 MG TAB PO SCH (08:31)
[2022-09-09] MEDS: Tamsulosin HCl 0.4 MG CAP PO SCH (08:31)
[2022-09-09] MEDS: Multivit, Therapeutic 1 TAB PO SCH (08:32)
[2022-09-09] MEDS: Folic Acid 1 MG TAB PO SCH (08:32)
[2022-09-09] MEDS ORDERED: Lisinopril 20 MG TAB PO SCH (09:00)
[2022-09-09] MEDS: Lisinopril 10 MG TAB PO SCH (12:49)
[2022-09-09] MEDS: Thiamine 100 MG TAB PO SCH (12:54)
[2022-09-09] MEDS: Gabapentin 300 MG CAP PO SCH (20:42)
[2022-09-09] MEDS: Atorvastatin Calcium 40 MG TAB PO SCH (20:42)
[2022-09-09] MEDS: Acetaminophen 325 MG TAB PO PRN (20:45)
[2022-09-10 08:29] LABS: #Basophils 0.1 thou/uL (0.0-0.2); #Eosinphils 0.4 thou/uL (0.0-0.7); #Monocytes 0.4 thou/uL (0.11-0.59); #Neutrophils 2.8 thou/uL (1.40-6.50); %Basophils 1.4 % (0.0-1.0); %Eosinophils 8.6 % (0.0-10.0); %Lymphocytes 16.1 % (21.0-51.0); %Monocytes 8.6 % (0.0-10.0); %Neutrophils 64.2 % (42.0-75.0); Hemoglobin 13.8 g/dL (14.0-18.0); Mean Corpuscular HGB CONC 30.7 g/dL (32.0-36.0); Mean Corpuscular Hemoglobin 29.7 pg (27.0-31.0); Mean Corpuscular Volume 96.8 fl (78.0-98.0); Mean Platelet Volume 9.6 fL (7.4-10.4); Platelet Count 230 10x3/uL (130-400); RBC Distribution Width 13.9 % (11.5-14.5); Red Blood Cell (RBC) Count 4.65 mill/uL (4.70-6.10); White Blood Cell (WBC) Count 4.4 10x3/uL (4.8-10.8)
[2022-09-10 08:50] LABS: Anion Gap 13 mmol/L (10-20); BUN (Urea Nitrogen) 29 mg/dL (8.4-25.7); Calc. Creatinine Clearance 75 mL/min (70-130); Calcium 8.9 mg/dL (7.8-10.44); Carbon Dioxide 27 mmol/L (23-31); Chloride 103 mmol/L (98-107); Estimated GFR 61; Glucose 111 mg/dL (83-110); Potassium 4.4 mmol/L (3.5-5.1); Sodium 139 mmol/L (136-145)
[2022-09-10] MEDS: Lisinopril 10 MG TAB PO SCH (08:58)
[2022-09-10] MEDS: Folic Acid 1 MG TAB PO SCH (08:59)
[2022-09-10] MEDS: Multivit, Therapeutic 1 TAB PO SCH (08:59)
[2022-09-10] MEDS: Tamsulosin HCl 0.4 MG CAP PO SCH (08:59)
[2022-09-10] MEDS: Furosemide 20 MG TAB PO SCH (09:00)
[2022-09-10] MEDS: PARoxetine 20 MG TAB PO SCH (09:02)
[2022-09-10] MEDS: Thiamine 100 MG TAB PO SCH (13:06)
[2022-09-10] MEDS: Gabapentin 300 MG CAP PO SCH (21:10)
[2022-09-10] MEDS: Atorvastatin Calcium 40 MG TAB PO SCH (21:10)
[2022-09-11] MEDS: PARoxetine 20 MG TAB PO SCH (08:12)
[2022-09-11] MEDS: Furosemide 20 MG TAB PO SCH (08:13)
[2022-09-11] MEDS: Tamsulosin HCl 0.4 MG CAP PO SCH (08:13)
[2022-09-11] MEDS: Multivit, Therapeutic 1 TAB PO SCH (08:13)
[2022-09-11] MEDS: Folic Acid 1 MG TAB PO SCH (08:13)
[2022-09-11] MEDS: Thiamine 100 MG TAB PO SCH (18:47)
[2022-09-11] MEDS: Gabapentin 300 MG CAP PO SCH (20:26)
[2022-09-11] MEDS: Atorvastatin Calcium 40 MG TAB PO SCH (20:27)
[2022-09-12 06:47] LABS: #Basophils 0.1 thou/uL (0.0-0.2); #Eosinphils 0.5 thou/uL (0.0-0.7); #Monocytes 0.8 thou/uL (0.11-0.59); #Neutrophils 3.2 thou/uL (1.40-6.50); %Basophils 1.2 % (0.0-1.0); %Eosinophils 8.7 % (0.0-10.0); %Lymphocytes 21.3 % (21.0-51.0); %Monocytes 14.1 % (0.0-10.0); %Neutrophils 53.8 % (42.0-75.0); Hemoglobin 14.1 g/dL (14.0-18.0); Mean Corpuscular HGB CONC 31.8 g/dL (32.0-36.0); Mean Corpuscular Hemoglobin 30.6 pg (27.0-31.0); Mean Corpuscular Volume 96.3 fl (78.0-98.0); Mean Platelet Volume 9.3 fL (7.4-10.4); Platelet Count 245 10x3/uL (130-400); RBC Distribution Width 13.8 % (11.5-14.5); Red Blood Cell (RBC) Count 4.61 mill/uL (4.70-6.10); White Blood Cell (WBC) Count 5.9 10x3/uL (4.8-10.8)
[2022-09-12 07:42] LABS: Anion Gap 13 mmol/L (10-20); BUN (Urea Nitrogen) 34 mg/dL (8.4-25.7); Calc. Creatinine Clearance 74 mL/min (70-130); Calcium 9.2 mg/dL (7.8-10.44); Carbon Dioxide 26 mmol/L (23-31); Chloride 104 mmol/L (98-107); Estimated GFR 60; Glucose 90 mg/dL (83-110); Potassium 4.7 mmol/L (3.5-5.1); Sodium 138 mmol/L (136-145)
[2022-09-12] MEDS: Folic Acid 1 MG TAB PO SCH (08:39)
[2022-09-12] MEDS: Tamsulosin HCl 0.4 MG CAP PO SCH (08:39)
[2022-09-12] MEDS: Furosemide 20 MG TAB PO SCH (08:39)
[2022-09-12] MEDS: PARoxetine 20 MG TAB PO SCH (08:39)
[2022-09-12] MEDS: Multivit, Therapeutic 1 TAB PO SCH (08:39)
[2022-09-12] MEDS: Thiamine 100 MG TAB PO SCH (13:09)
[2022-09-12] MEDS: Atorvastatin Calcium 40 MG TAB PO SCH (20:20)
[2022-09-12] MEDS: Gabapentin 300 MG CAP PO SCH (20:20)
[2022-09-13] MEDS: Tamsulosin HCl 0.4 MG CAP PO SCH (08:29)
[2022-09-13] MEDS: Folic Acid 1 MG TAB PO SCH (08:29)
[2022-09-13] MEDS: Furosemide 20 MG TAB PO SCH (08:29)
[2022-09-13] MEDS: guaiFENesin ER 600 MG TAB PO SCH ×2 (08:29→20:40)
[2022-09-13] MEDS: PARoxetine 20 MG TAB PO SCH (08:29)
[2022-09-13] MEDS: Multivit, Therapeutic 1 TAB PO SCH (08:29)
[2022-09-13] MEDS: Thiamine 100 MG TAB PO SCH (13:09)
[2022-09-13] MEDS: Gabapentin 300 MG CAP PO SCH (20:39)
[2022-09-13] MEDS: Atorvastatin Calcium 40 MG TAB PO SCH (20:40)
[2022-09-14] MEDS: PARoxetine 20 MG TAB PO SCH (09:09)
[2022-09-14] MEDS: guaiFENesin ER 600 MG TAB PO SCH (09:13)
[2022-09-14] MEDS: Multivit, Therapeutic 1 TAB PO SCH (09:13)
[2022-09-14] MEDS: Folic Acid 1 MG TAB PO SCH (09:14)
[2022-09-14] MEDS: Tamsulosin HCl 0.4 MG CAP PO SCH (09:14)
[2022-09-14] MEDS: Thiamine 100 MG TAB PO SCH (11:53)
[2022-09-14 18:45] VITALS: BP 126/80; TEMP 97.8
== END 2022-09-14 17:34 | DRG 948 ==
LOC: ERS 17:02 → T4-B 22:17
PROVIDERS: ADMIT Family Medicine; ATTEND Family Medicine
DX: R53.1 Weakness (principal); Z66 Do not resuscitate; N40.0 Benign prostatic hyperplasia without lower urinary tract symptoms; E78.5 Hyperlipidemia, unspecified; I10 Essential (primary) hypertension; M19.90 Unspecified osteoarthritis, unspecified site; Z96.643 Presence of artificial hip joint, bilateral; Z96.651 Presence of right artificial knee joint; L89.159 Pressure ulcer of sacral region, unspecified stage; F10.10 Alcohol abuse, uncomplicated; F41.9 Anxiety disorder, unspecified; F32.A Depression, unspecified; I95.9 Hypotension, unspecified; Z90.49 Acquired absence of other specified parts of digestive tract; Z98.890 Other specified postprocedural states; Z79.899 Other long term (current) drug therapy; Z74.01 Bed confinement status
CPT/HCPCS: 36415; 71045; 80048; 80053; 85025; 97139; J1650

== ENCOUNTER 2022-10-05 08:56 | Inpatient (IN) | payer OTHER, MEDICAID ==
[2022-10-05 09:23] LABS: #Basophils 0.1 thou/uL (0.0-0.2); #Monocytes 0.6 thou/uL (0.11-0.59); #Neutrophils 4.7 thou/uL (1.40-6.50); %Basophils 1.1 % (0.0-1.0); %Eosinophils 12.6 % (0.0-10.0); %Lymphocytes 16.1 % (21.0-51.0); %Monocytes 7.8 % (0.0-10.0); %Neutrophils 61.5 % (42.0-75.0); Hemoglobin 15.3 g/dL (14.0-18.0); Mean Corpuscular HGB CONC 30.4 g/dL (32.0-36.0); Mean Corpuscular Volume 98.6 fl (78.0-98.0); Platelet Count 205 10x3/uL (130-400); RBC Distribution Width 13.6 % (11.5-14.5); White Blood Cell (WBC) Count 7.6 10x3/uL (4.8-10.8)
[2022-10-05 09:46] LABS: ALT (SGPT) 23 U/L (8-55); AST (SGOT) 19 U/L (5-34); Albumin 3.8 g/dL (3.4-4.8); Alkaline Phosphatase 81 U/L (40-110); Anion Gap 15 mmol/L (10-20); BUN (Urea Nitrogen) 29 mg/dL (8.4-25.7); Bilirubin, Total 0.8 mg/dL (0.2-1.2); CK (CPK) 24 U/L (30-200); Calc. Creatinine Clearance 0 mL/min (70-130); Calcium 9.2 mg/dL (7.8-10.44); Carbon Dioxide 23 mmol/L (23-31); Chloride 110 mmol/L (98-107); Estimated GFR 68; Globulin 3.1 g/dL (2.4-3.5); Glucose 94 mg/dL (83-110); Magnesium 2.1 mg/dL (1.6-2.6); Potassium 4.3 mmol/L (3.5-5.1); Protein, Total 6.9 g/dL (5.8-8.1); Sodium 144 mmol/L (136-145)
[2022-10-05 10:50] LABS: Bacteria/HPF 4+ HPF (None Seen); Bilirubin Negative (Negative); Blood, Urine 2+ (Negative); CAUTI Indications for Culture Dysuria,urgency,freq; Clarity Turbid (Clear); Glucose, Urine (Dipstick) Normal (Negative); Ketone, Urine Negative (Negative); Leukocyte 500 Leu/uL (Negative); Nitrite 2+ (Negative); Protein, Urine (Dipstick) 10 mg/dL (Neg-Trace); Specific Gravity, Urine 1.013 (1.002-1.036); Squamous Epithelial None Seen HPF (0-3); Urobilinogen Normal mg/dL (Less than 2); WBC/HPF Greater than 50 HPF (0-3); pH, Urine 6.5 (5.0-9.0)
[2022-10-05 10:51] LABS: Urine Culture Reflex Yes Yes
[2022-10-05] MEDS ORDERED: cefTRIAXone (ROCEPHIN) 1 GM VIAL ONE (11:46)
[2022-10-05 14:18] VITALS: BMI 27.1
[2022-10-05] MEDS: Gabapentin 300 MG CAP PO SCH (20:16)
[2022-10-05] MEDS: Atorvastatin Calcium 40 MG TAB PO SCH (20:16)
[2022-10-06 06:20] LABS: #Basophils 0.1 thou/uL (0.0-0.2); #Eosinphils 1.1 thou/uL (0.0-0.7); #Monocytes 0.7 thou/uL (0.11-0.59); #Neutrophils 4.5 thou/uL (1.40-6.50); %Basophils 1.3 % (0.0-1.0); %Eosinophils 13.7 % (0.0-10.0); %Lymphocytes 17.3 % (21.0-51.0); %Monocytes 8.7 % (0.0-10.0); %Neutrophils 58.1 % (42.0-75.0); Hemoglobin 13.5 g/dL (14.0-18.0); Mean Corpuscular HGB CONC 31.8 g/dL (32.0-36.0); Mean Corpuscular Hemoglobin 30.6 pg (27.0-31.0); Mean Corpuscular Volume 96.1 fl (78.0-98.0); Mean Platelet Volume 9.3 fL (7.4-10.4); Platelet Count 223 10x3/uL (130-400); RBC Distribution Width 13.5 % (11.5-14.5); Red Blood Cell (RBC) Count 4.41 mill/uL (4.70-6.10); White Blood Cell (WBC) Count 7.7 10x3/uL (4.8-10.8)
[2022-10-06 06:43] LABS: Anion Gap 12 mmol/L (10-20); BUN (Urea Nitrogen) 28 mg/dL (8.4-25.7); Calc. Creatinine Clearance 62 mL/min (70-130); Calcium 8.7 mg/dL (7.8-10.44); Carbon Dioxide 24 mmol/L (23-31); Chloride 109 mmol/L (98-107); Estimated GFR 67; Glucose 99 mg/dL (83-110); Potassium 4.2 mmol/L (3.5-5.1); Sodium 141 mmol/L (136-145)
[2022-10-06] MEDS: PARoxetine 20 MG TAB PO SCH (08:38)
[2022-10-06] MEDS: Tamsulosin HCl 0.4 MG CAP PO SCH (08:39)
[2022-10-06] MEDS: Furosemide 20 MG TAB PO SCH (08:39)
[2022-10-06] MEDS: cefTRIAXone\\ROCEPHIN 1 GM in Sodium Chloride 0.9% 100 ML IVPB SCH (11:32)
[2022-10-06] MEDS: Gabapentin 300 MG CAP PO SCH (21:35)
[2022-10-06] MEDS: Atorvastatin Calcium 40 MG TAB PO SCH (21:36)
[2022-10-07] MEDS: PARoxetine 20 MG TAB PO SCH (08:05)
[2022-10-07] MEDS: Furosemide 20 MG TAB PO SCH (08:05)
[2022-10-07] MEDS: Tamsulosin HCl 0.4 MG CAP PO SCH (08:06)
[2022-10-07] MEDS: cefTRIAXone\\ROCEPHIN 1 GM in Sodium Chloride 0.9% 100 ML IVPB SCH (11:25)
[2022-10-07] MEDS: Gabapentin 300 MG CAP PO SCH (19:59)
[2022-10-07] MEDS: Atorvastatin Calcium 40 MG TAB PO SCH (20:00)
[2022-10-08] MEDS: Tamsulosin HCl 0.4 MG CAP PO SCH (10:16)
[2022-10-08] MEDS: Furosemide 20 MG TAB PO SCH (10:16)
[2022-10-08] MEDS: PARoxetine 20 MG TAB PO SCH (10:16)
[2022-10-08] MEDS: cefTRIAXone\\ROCEPHIN 1 GM in Sodium Chloride 0.9% 100 ML IVPB SCH (13:28)
[2022-10-08] MEDS: Gabapentin 300 MG CAP PO SCH (19:51)
[2022-10-08] MEDS: Atorvastatin Calcium 40 MG TAB PO SCH (19:52)
[2022-10-08] MEDS: hydrOXYzine 25 MG TAB PO PRN (19:56)
[2022-10-09 06:42] LABS: #Basophils 0.1 thou/uL (0.0-0.2); #Eosinphils 0.7 thou/uL (0.0-0.7); #Monocytes 0.6 thou/uL (0.11-0.59); #Neutrophils 3.2 thou/uL (1.40-6.50); %Basophils 1.6 % (0.0-1.0); %Eosinophils 10.6 % (0.0-10.0); %Lymphocytes 25.8 % (21.0-51.0); %Monocytes 9.5 % (0.0-10.0); %Neutrophils 50.7 % (42.0-75.0); Hemoglobin 14.1 g/dL (14.0-18.0); Mean Corpuscular HGB CONC 32.2 g/dL (32.0-36.0); Mean Corpuscular Hemoglobin 30.3 pg (27.0-31.0); Mean Platelet Volume 9.2 fL (7.4-10.4); Platelet Count 236 10x3/uL (130-400); RBC Distribution Width 13.2 % (11.5-14.5); Red Blood Cell (RBC) Count 4.66 mill/uL (4.70-6.10); White Blood Cell (WBC) Count 6.2 10x3/uL (4.8-10.8)
[2022-10-09 07:18] LABS: Anion Gap 13 mmol/L (10-20); BUN (Urea Nitrogen) 28 mg/dL (8.4-25.7); Calc. Creatinine Clearance 56 mL/min (70-130); Carbon Dioxide 25 mmol/L (23-31); Chloride 106 mmol/L (98-107); Estimated GFR 60; Glucose 91 mg/dL (83-110); Sodium 140 mmol/L (136-145)
[2022-10-09] MEDS: PARoxetine 20 MG TAB PO SCH (08:53)
[2022-10-09] MEDS: guaiFENesin ER 600 MG TAB PO SCH ×2 (08:53→20:19)
[2022-10-09] MEDS: Tamsulosin HCl 0.4 MG CAP PO SCH (08:53)
[2022-10-09] MEDS: Furosemide 20 MG TAB PO SCH (08:54)
[2022-10-09] MEDS ORDERED: GENTAMICIN IVPB SCH (11:45)
[2022-10-09] MEDS: Gentamicin Sulfate 100 MG in Premix Bag 1 BAG IVPB SCH ×2 (14:31→17:47)
[2022-10-09] MEDS ORDERED: Gentamicin 80 MG/2 ML VIAL IM SCH (17:37)
[2022-10-09] MEDS: hydrOXYzine 25 MG TAB PO PRN (20:19)
[2022-10-09] MEDS: Atorvastatin Calcium 40 MG TAB PO SCH (20:19)
[2022-10-09] MEDS: Gabapentin 300 MG CAP PO SCH (20:20)
[2022-10-09] MEDS ORDERED: diphenhydrAMINE 25 MG CAP PO SCH (22:15)
[2022-10-10] MEDS: PARoxetine 20 MG TAB PO SCH (08:14)
[2022-10-10] MEDS: guaiFENesin ER 600 MG TAB PO SCH ×2 (08:14→20:34)
[2022-10-10] MEDS: Furosemide 20 MG TAB PO SCH (08:14)
[2022-10-10] MEDS: Tamsulosin HCl 0.4 MG CAP PO SCH (08:14)
[2022-10-10] MEDS: Atorvastatin Calcium 40 MG TAB PO SCH (20:34)
[2022-10-10] MEDS: hydrOXYzine 25 MG TAB PO PRN (20:34)
[2022-10-10] MEDS: Gabapentin 300 MG CAP PO SCH (20:34)
[2022-10-11] MEDS: Furosemide 20 MG TAB PO SCH (09:08)
[2022-10-11] MEDS: PARoxetine 20 MG TAB PO SCH (09:08)
[2022-10-11] MEDS: Multivit, Chewable SF 1 TAB PO SCH (09:08)
[2022-10-11] MEDS: guaiFENesin ER 600 MG TAB PO SCH ×2 (09:08→20:33)
[2022-10-11] MEDS: Tamsulosin HCl 0.4 MG CAP PO SCH (09:08)
[2022-10-11] MEDS: hydrOXYzine 25 MG TAB PO PRN (20:33)
[2022-10-11] MEDS: Gabapentin 300 MG CAP PO SCH (20:33)
[2022-10-11] MEDS: Atorvastatin Calcium 40 MG TAB PO SCH (20:33)
[2022-10-12] MEDS: guaiFENesin ER 600 MG TAB PO SCH ×2 (08:45→20:33)
[2022-10-12] MEDS: hydrOXYzine 25 MG TAB PO PRN ×2 (08:45→20:33)
[2022-10-12] MEDS: Furosemide 20 MG TAB PO SCH (08:45)
[2022-10-12] MEDS: Tamsulosin HCl 0.4 MG CAP PO SCH (08:45)
[2022-10-12] MEDS: PARoxetine 20 MG TAB PO SCH (08:45)
[2022-10-12] MEDS: Multivit, Chewable SF 1 TAB PO SCH (08:45)
[2022-10-12] MEDS: Atorvastatin Calcium 40 MG TAB PO SCH (20:33)
[2022-10-12] MEDS: Gabapentin 300 MG CAP PO SCH (20:33)
[2022-10-13 06:57] LABS: #Basophils 0.1 thou/uL (0.0-0.2); #Eosinphils 0.7 thou/uL (0.0-0.7); #Monocytes 0.6 thou/uL (0.11-0.59); #Neutrophils 3.8 thou/uL (1.40-6.50); %Basophils 1.9 % (0.0-1.0); %Eosinophils 9.1 % (0.0-10.0); %Lymphocytes 26.7 % (21.0-51.0); %Monocytes 8.2 % (0.0-10.0); %Neutrophils 52.2 % (42.0-75.0); Hemoglobin 14.7 g/dL (14.0-18.0); Mean Corpuscular HGB CONC 32.4 g/dL (32.0-36.0); Mean Corpuscular Hemoglobin 30.4 pg (27.0-31.0); Mean Corpuscular Volume 93.8 fl (78.0-98.0); Platelet Count 261 10x3/uL (130-400); RBC Distribution Width 13.2 % (11.5-14.5); Red Blood Cell (RBC) Count 4.84 mill/uL (4.70-6.10); White Blood Cell (WBC) Count 7.2 10x3/uL (4.8-10.8)
[2022-10-13 07:28] LABS: Anion Gap 8 mmol/L (10-20); BUN (Urea Nitrogen) 28 mg/dL (8.4-25.7); Calc. Creatinine Clearance 63 mL/min (70-130); Calcium 9.4 mg/dL (7.8-10.44); Carbon Dioxide 28 mmol/L (23-31); Chloride 106 mmol/L (98-107); Estimated GFR 69; Glucose 89 mg/dL (83-110); Potassium 4.3 mmol/L (3.5-5.1); Sodium 138 mmol/L (136-145)
[2022-10-13] MEDS: PARoxetine 20 MG TAB PO SCH (08:46)
[2022-10-13] MEDS: Furosemide 20 MG TAB PO SCH (08:46)
[2022-10-13] MEDS: Multivit, Chewable SF 1 TAB PO SCH (08:46)
[2022-10-13] MEDS: guaiFENesin ER 600 MG TAB PO SCH ×2 (08:46→20:35)
[2022-10-13] MEDS: Tamsulosin HCl 0.4 MG CAP PO SCH (08:47)
[2022-10-13] MEDS: hydrOXYzine 25 MG TAB PO PRN ×2 (08:47→20:35)
[2022-10-13] MEDS: Atorvastatin Calcium 40 MG TAB PO SCH (20:35)
[2022-10-13] MEDS: Gabapentin 300 MG CAP PO SCH (20:35)
[2022-10-14] MEDS: hydrOXYzine 25 MG TAB PO PRN ×2 (08:04→20:44)
[2022-10-14] MEDS: PARoxetine 20 MG TAB PO SCH (08:04)
[2022-10-14] MEDS: Tamsulosin HCl 0.4 MG CAP PO SCH (08:05)
[2022-10-14] MEDS: Multivit, Chewable SF 1 TAB PO SCH (08:05)
[2022-10-14] MEDS: Furosemide 20 MG TAB PO SCH (08:05)
[2022-10-14] MEDS: guaiFENesin ER 600 MG TAB PO SCH ×2 (08:05→20:44)
[2022-10-14] MEDS: Gabapentin 300 MG CAP PO SCH (20:43)
[2022-10-14] MEDS: Atorvastatin Calcium 40 MG TAB PO SCH (20:44)
[2022-10-15] MEDS: PARoxetine 20 MG TAB PO SCH (08:10)
[2022-10-15] MEDS: Furosemide 20 MG TAB PO SCH (08:10)
[2022-10-15] MEDS: guaiFENesin ER 600 MG TAB PO SCH (08:10)
[2022-10-15] MEDS: Multivit, Chewable SF 1 TAB PO SCH (08:10)
[2022-10-15] MEDS: Tamsulosin HCl 0.4 MG CAP PO SCH (08:10)
[2022-10-15] MEDS: hydrOXYzine 25 MG TAB PO PRN ×2 (14:18→20:09)
[2022-10-15] MEDS: Gabapentin 300 MG CAP PO SCH (20:08)
[2022-10-15] MEDS: Atorvastatin Calcium 40 MG TAB PO SCH (20:09)
[2022-10-16 05:37] LABS: Hemoglobin 13.8 g/dL (14.0-18.0); Platelet Count 252 10x3/uL (130-400)
[2022-10-16 06:00] LABS: Anion Gap 8 mmol/L (10-20); BUN (Urea Nitrogen) 32 mg/dL (8.4-25.7); Calc. Creatinine Clearance 54 mL/min (70-130); Calcium 9.2 mg/dL (7.8-10.44); Carbon Dioxide 31 mmol/L (23-31); Chloride 106 mmol/L (98-107); Estimated GFR 57; Glucose 93 mg/dL (83-110); Potassium 4.5 mmol/L (3.5-5.1); Sodium 140 mmol/L (136-145)
[2022-10-16] MEDS: Furosemide 20 MG TAB PO SCH (08:11)
[2022-10-16] MEDS: PARoxetine 20 MG TAB PO SCH (08:11)
[2022-10-16] MEDS: Tamsulosin HCl 0.4 MG CAP PO SCH (08:11)
[2022-10-16] MEDS: Multivit, Chewable SF 1 TAB PO SCH (08:13)
[2022-10-16] MEDS: hydrOXYzine 25 MG TAB PO PRN ×2 (08:13→21:20)
[2022-10-16] MEDS: Atorvastatin Calcium 40 MG TAB PO SCH (20:03)
[2022-10-16] MEDS: Gabapentin 300 MG CAP PO SCH (20:03)
[2022-10-17] MEDS ORDERED: Acetaminophen 325 MG TAB PO PRN (06:19)
[2022-10-17] MEDS: hydrOXYzine 25 MG TAB PO PRN ×2 (08:09→21:15)
[2022-10-17] MEDS: Tamsulosin HCl 0.4 MG CAP PO SCH (08:09)
[2022-10-17] MEDS: Multivit, Chewable SF 1 TAB PO SCH (08:09)
[2022-10-17] MEDS: PARoxetine 20 MG TAB PO SCH (08:09)
[2022-10-17] MEDS: Furosemide 20 MG TAB PO SCH (08:09)
[2022-10-17] MEDS: Atorvastatin Calcium 40 MG TAB PO SCH (21:14)
[2022-10-17] MEDS: Gabapentin 300 MG CAP PO SCH (21:14)
[2022-10-17] MEDS: guaiFENesin ER 600 MG TAB PO PRN (21:15)
[2022-10-18] MEDS: Multivit, Chewable SF 1 TAB PO SCH (08:15)
[2022-10-18] MEDS: PARoxetine 20 MG TAB PO SCH (08:15)
[2022-10-18] MEDS: Tamsulosin HCl 0.4 MG CAP PO SCH (08:15)
[2022-10-18] MEDS: hydrOXYzine 25 MG TAB PO PRN ×2 (08:15→20:23)
[2022-10-18] MEDS: Furosemide 20 MG TAB PO SCH (08:15)
[2022-10-18] MEDS: Gabapentin 300 MG CAP PO SCH (20:23)
[2022-10-18] MEDS: Atorvastatin Calcium 40 MG TAB PO SCH (20:23)
[2022-10-19 05:50] LABS: Hemoglobin 13.9 g/dL (14.0-18.0); Platelet Count 239 10x3/uL (130-400)
[2022-10-19 06:14] LABS: Anion Gap 12 mmol/L (10-20); BUN (Urea Nitrogen) 32 mg/dL (8.4-25.7); Calc. Creatinine Clearance 62 mL/min (70-130); Calcium 8.9 mg/dL (7.8-10.44); Carbon Dioxide 25 mmol/L (23-31); Chloride 108 mmol/L (98-107); Estimated GFR 67; Glucose 96 mg/dL (83-110); Sodium 141 mmol/L (136-145)
[2022-10-19] MEDS: PARoxetine 20 MG TAB PO SCH (08:50)
[2022-10-19] MEDS: Furosemide 20 MG TAB PO SCH (08:51)
[2022-10-19] MEDS: Multivit, Chewable SF 1 TAB PO SCH (08:51)
[2022-10-19] MEDS: Tamsulosin HCl 0.4 MG CAP PO SCH (08:51)
[2022-10-19] MEDS: guaiFENesin ER 600 MG TAB PO PRN (08:54)
[2022-10-19] MEDS: hydrOXYzine 25 MG TAB PO PRN ×2 (08:54→20:03)
[2022-10-19] MEDS: Gabapentin 300 MG CAP PO SCH (20:01)
[2022-10-19] MEDS: Atorvastatin Calcium 40 MG TAB PO SCH (20:01)
[2022-10-20] MEDS: PARoxetine 20 MG TAB PO SCH (08:02)
[2022-10-20] MEDS: Furosemide 20 MG TAB PO SCH (08:03)
[2022-10-20] MEDS: Tamsulosin HCl 0.4 MG CAP PO SCH (08:03)
[2022-10-20] MEDS: Multivit, Chewable SF 1 TAB PO SCH (08:03)
[2022-10-20] MEDS: hydrOXYzine 25 MG TAB PO PRN ×2 (08:06→21:23)
[2022-10-20] MEDS: Gabapentin 300 MG CAP PO SCH (21:20)
[2022-10-20] MEDS: Atorvastatin Calcium 40 MG TAB PO SCH (21:20)
[2022-10-21] MEDS: Diclofenac 1% 100 GM GEL TP SCH ×4 (06:34→21:38)
[2022-10-21] MEDS: PARoxetine 20 MG TAB PO SCH (08:14)
[2022-10-21] MEDS: hydrOXYzine 25 MG TAB PO PRN ×2 (08:14→21:38)
[2022-10-21] MEDS: Multivit, Chewable SF 1 TAB PO SCH (08:14)
[2022-10-21] MEDS: Tamsulosin HCl 0.4 MG CAP PO SCH (08:14)
[2022-10-21] MEDS: Furosemide 20 MG TAB PO SCH (08:15)
[2022-10-21] MEDS: Gabapentin 300 MG CAP PO SCH (21:37)
[2022-10-21] MEDS: Atorvastatin Calcium 40 MG TAB PO SCH (21:37)
[2022-10-22 06:14] LABS: Hemoglobin 14.2 g/dL (14.0-18.0); Platelet Count 259 10x3/uL (130-400)
[2022-10-22 06:36] LABS: Anion Gap 14 mmol/L (10-20); BUN (Urea Nitrogen) 33 mg/dL (8.4-25.7); Calc. Creatinine Clearance 55 mL/min (70-130); Calcium 9.3 mg/dL (7.8-10.44); Carbon Dioxide 27 mmol/L (23-31); Chloride 105 mmol/L (98-107); Estimated GFR 59; Glucose 92 mg/dL (83-110); Potassium 4.5 mmol/L (3.5-5.1); Sodium 141 mmol/L (136-145)
[2022-10-22] MEDS: Multivit, Chewable SF 1 TAB PO SCH (08:26)
[2022-10-22] MEDS: Tamsulosin HCl 0.4 MG CAP PO SCH (08:26)
[2022-10-22] MEDS: Furosemide 20 MG TAB PO SCH (08:26)
[2022-10-22] MEDS: PARoxetine 20 MG TAB PO SCH (08:26)
[2022-10-22] MEDS: hydrOXYzine 25 MG TAB PO PRN ×2 (08:27→20:30)
[2022-10-22] MEDS: Diclofenac 1% 100 GM GEL TP SCH ×4 (08:27→20:32)
[2022-10-22] MEDS: Atorvastatin Calcium 40 MG TAB PO SCH (20:30)
[2022-10-22] MEDS: Gabapentin 300 MG CAP PO SCH (20:30)
[2022-10-23] MEDS: Furosemide 20 MG TAB PO SCH (08:22)
[2022-10-23] MEDS: Tamsulosin HCl 0.4 MG CAP PO SCH (08:22)
[2022-10-23] MEDS: Multivit, Chewable SF 1 TAB PO SCH (08:22)
[2022-10-23] MEDS: PARoxetine 20 MG TAB PO SCH (08:22)
[2022-10-23] MEDS: Gabapentin 300 MG CAP PO SCH (21:55)
[2022-10-23] MEDS: hydrOXYzine 25 MG TAB PO PRN (21:55)
[2022-10-23] MEDS: Atorvastatin Calcium 40 MG TAB PO SCH (21:55)
[2022-10-23] MEDS: Diclofenac 1% 100 GM GEL TP PRN (21:59)
[2022-10-24] MEDS: Multivit, Chewable SF 1 TAB PO SCH (08:04)
[2022-10-24] MEDS: Furosemide 20 MG TAB PO SCH (08:04)
[2022-10-24] MEDS: PARoxetine 20 MG TAB PO SCH (08:04)
[2022-10-24] MEDS: Tamsulosin HCl 0.4 MG CAP PO SCH (08:04)
[2022-10-24] MEDS: Gabapentin 300 MG CAP PO SCH (21:16)
[2022-10-24] MEDS: Atorvastatin Calcium 40 MG TAB PO SCH (21:16)
[2022-10-24] MEDS: hydrOXYzine 25 MG TAB PO PRN (21:17)
[2022-10-24] MEDS: Diclofenac 1% 100 GM GEL TP PRN (21:23)
[2022-10-25] MEDS: PARoxetine 20 MG TAB PO SCH (08:32)
[2022-10-25] MEDS: Tamsulosin HCl 0.4 MG CAP PO SCH (08:33)
[2022-10-25] MEDS: Furosemide 20 MG TAB PO SCH (08:33)
[2022-10-25] MEDS: Multivit, Chewable SF 1 TAB PO SCH (08:33)
[2022-10-25 11:18] LABS: Bacteria/HPF 4+ HPF (None Seen); Bilirubin Negative (Negative); Blood, Urine 1+ (Negative); CAUTI Indications for Culture Dysuria,urgency,freq; Clarity Turbid (Clear); Glucose, Urine (Dipstick) Normal (Negative); Ketone, Urine Negative (Negative); Leukocyte 500 Leu/uL (Negative); Nitrite 1+ (Negative); Protein, Urine (Dipstick) 10 mg/dL (Neg-Trace); Specific Gravity, Urine 1.017 (1.002-1.036); Squamous Epithelial 0-3 HPF (0-3); Urobilinogen Normal mg/dL (Less than 2); WBC/HPF Greater than 50 HPF (0-3); pH, Urine 5.5 (5.0-9.0)
[2022-10-25 11:25] LABS: Urine Culture Reflex Yes Yes
[2022-10-25] MEDS: Cefepime 1 GM in Sodium Chloride 0.9% 100 ML IVPB SCH (18:04)
[2022-10-25] MEDS: Gabapentin 300 MG CAP PO SCH (21:08)
[2022-10-25] MEDS: Atorvastatin Calcium 40 MG TAB PO SCH (21:08)
[2022-10-25] MEDS: hydrOXYzine 25 MG TAB PO PRN (21:08)
[2022-10-26] MEDS: Cefepime 1 GM in Sodium Chloride 0.9% 100 ML IVPB SCH ×2 (05:41→17:47)
[2022-10-26 08:02] LABS: #Basophils 0.1 thou/uL (0.0-0.2); #Eosinphils 0.8 thou/uL (0.0-0.7); #Monocytes 0.5 thou/uL (0.11-0.59); #Neutrophils 2.5 thou/uL (1.40-6.50); %Basophils 1.7 % (0.0-1.0); %Eosinophils 14.3 % (0.0-10.0); %Lymphocytes 27.3 % (21.0-51.0); %Monocytes 9.7 % (0.0-10.0); %Neutrophils 46.1 % (42.0-75.0); Hemoglobin 14.7 g/dL (14.0-18.0); Mean Corpuscular HGB CONC 32.1 g/dL (32.0-36.0); Mean Corpuscular Hemoglobin 30.5 pg (27.0-31.0); Mean Platelet Volume 8.9 fL (7.4-10.4); Platelet Count 254 10x3/uL (130-400); RBC Distribution Width 13.7 % (11.5-14.5); Red Blood Cell (RBC) Count 4.82 mill/uL (4.70-6.10); White Blood Cell (WBC) Count 5.5 10x3/uL (4.8-10.8)
[2022-10-26 08:23] LABS: Anion Gap 12 mmol/L (10-20); BUN (Urea Nitrogen) 33 mg/dL (8.4-25.7); Calc. Creatinine Clearance 58 mL/min (70-130); Calcium 9.2 mg/dL (7.8-10.44); Carbon Dioxide 27 mmol/L (23-31); Chloride 108 mmol/L (98-107); Estimated GFR 63; Glucose 93 mg/dL (83-110); Potassium 4.7 mmol/L (3.5-5.1); Sodium 142 mmol/L (136-145)
[2022-10-26] MEDS: Multivit, Chewable SF 1 TAB PO SCH (08:30)
[2022-10-26] MEDS: Tamsulosin HCl 0.4 MG CAP PO SCH (08:30)
[2022-10-26] MEDS: Furosemide 20 MG TAB PO SCH (08:30)
[2022-10-26] MEDS: PARoxetine 20 MG TAB PO SCH (08:30)
[2022-10-26] MEDS: Gabapentin 300 MG CAP PO SCH (22:14)
[2022-10-26] MEDS: Atorvastatin Calcium 40 MG TAB PO SCH (22:14)
[2022-10-27] MEDS: Cefepime 1 GM in Sodium Chloride 0.9% 100 ML IVPB SCH (04:47)
[2022-10-27] MEDS: Furosemide 20 MG TAB PO SCH (08:28)
[2022-10-27] MEDS: PARoxetine 20 MG TAB PO SCH (08:28)
[2022-10-27] MEDS: Multivit, Chewable SF 1 TAB PO SCH (08:28)
[2022-10-27] MEDS: Tamsulosin HCl 0.4 MG CAP PO SCH (08:28)
[2022-10-27] MEDS: hydrOXYzine 25 MG TAB PO PRN (08:30)
[2022-10-27] MEDS: Cephalexin 250 MG CAP PO SCH ×2 (11:52→18:09)
[2022-10-27] MEDS: Gabapentin 300 MG CAP PO SCH (20:09)
[2022-10-27] MEDS: Atorvastatin Calcium 40 MG TAB PO SCH (20:09)
[2022-10-28] MEDS: Cephalexin 250 MG CAP PO SCH ×3 (03:03→18:02)
[2022-10-28] MEDS: PARoxetine 20 MG TAB PO SCH (08:21)
[2022-10-28] MEDS: Tamsulosin HCl 0.4 MG CAP PO SCH (08:21)
[2022-10-28] MEDS: Multivit, Chewable SF 1 TAB PO SCH (08:21)
[2022-10-28] MEDS: Furosemide 20 MG TAB PO SCH (08:21)
[2022-10-28] MEDS: Atorvastatin Calcium 40 MG TAB PO SCH (20:30)
[2022-10-28] MEDS: Gabapentin 300 MG CAP PO SCH (20:30)
[2022-10-29] MEDS: Cephalexin 250 MG CAP PO SCH ×3 (02:23→20:12)
[2022-10-29] MEDS: Multivit, Chewable SF 1 TAB PO SCH (08:51)
[2022-10-29] MEDS: Furosemide 20 MG TAB PO SCH (08:51)
[2022-10-29] MEDS: PARoxetine 20 MG TAB PO SCH (08:51)
[2022-10-29] MEDS: Tamsulosin HCl 0.4 MG CAP PO SCH (08:51)
[2022-10-29] MEDS: Gabapentin 300 MG CAP PO SCH (20:12)
[2022-10-29] MEDS: Atorvastatin Calcium 40 MG TAB PO SCH (20:12)
[2022-10-30] MEDS: Cephalexin 250 MG CAP PO SCH ×3 (02:31→20:12)
[2022-10-30] MEDS: PARoxetine 20 MG TAB PO SCH (08:03)
[2022-10-30] MEDS: Tamsulosin HCl 0.4 MG CAP PO SCH (08:03)
[2022-10-30] MEDS: Furosemide 20 MG TAB PO SCH (08:03)
[2022-10-30] MEDS: Multivit, Chewable SF 1 TAB PO SCH (08:05)
[2022-10-30] MEDS: Atorvastatin Calcium 40 MG TAB PO SCH (20:12)
[2022-10-30] MEDS: Gabapentin 300 MG CAP PO SCH (20:13)
[2022-10-31] MEDS: Cephalexin 250 MG CAP PO SCH ×3 (03:26→18:02)
[2022-10-31] MEDS: Furosemide 20 MG TAB PO SCH (08:55)
[2022-10-31] MEDS: hydrOXYzine 25 MG TAB PO PRN (08:56)
[2022-10-31] MEDS: Multivit, Chewable SF 1 TAB PO SCH (08:56)
[2022-10-31] MEDS: guaiFENesin ER 600 MG TAB PO PRN (08:56)
[2022-10-31] MEDS: PARoxetine 20 MG TAB PO SCH (08:56)
[2022-10-31] MEDS: Tamsulosin HCl 0.4 MG CAP PO SCH (08:56)
[2022-10-31] MEDS: Atorvastatin Calcium 40 MG TAB PO SCH (21:33)
[2022-10-31] MEDS: Gabapentin 300 MG CAP PO SCH (21:33)
[2022-11-01] MEDS: Cephalexin 250 MG CAP PO SCH ×3 (03:24→18:33)
[2022-11-01 07:43] LABS: #Basophils 0.1 thou/uL (0.0-0.2); #Eosinphils 0.8 thou/uL (0.0-0.7); #Monocytes 0.5 thou/uL (0.11-0.59); #Neutrophils 2.1 thou/uL (1.40-6.50); %Eosinophils 14.2 % (0.0-10.0); %Lymphocytes 32.7 % (21.0-51.0); %Monocytes 9.6 % (0.0-10.0); %Neutrophils 39.5 % (42.0-75.0); Mean Corpuscular HGB CONC 32.1 g/dL (32.0-36.0); Mean Corpuscular Hemoglobin 30.3 pg (27.0-31.0); Mean Corpuscular Volume 94.4 fl (78.0-98.0); Mean Platelet Volume 8.7 fL (7.4-10.4); Platelet Count 227 10x3/uL (130-400); RBC Distribution Width 13.8 % (11.5-14.5); Red Blood Cell (RBC) Count 4.62 mill/uL (4.70-6.10); White Blood Cell (WBC) Count 5.4 10x3/uL (4.8-10.8)
[2022-11-01 08:23] LABS: Anion Gap 15 mmol/L (10-20); BUN (Urea Nitrogen) 33 mg/dL (8.4-25.7); Calc. Creatinine Clearance 64 mL/min (70-130); Carbon Dioxide 23 mmol/L (23-31); Chloride 110 mmol/L (98-107); Estimated GFR 70; Glucose 97 mg/dL (83-110); Potassium 3.9 mmol/L (3.5-5.1); Sodium 144 mmol/L (136-145)
[2022-11-01] MEDS: Tamsulosin HCl 0.4 MG CAP PO SCH (08:54)
[2022-11-01] MEDS: Furosemide 20 MG TAB PO SCH (08:55)
[2022-11-01] MEDS: hydrOXYzine 25 MG TAB PO PRN ×2 (08:55→20:45)
[2022-11-01] MEDS: PARoxetine 20 MG TAB PO SCH (08:55)
[2022-11-01] MEDS: Multivit, Chewable SF 1 TAB PO SCH (08:56)
[2022-11-01] MEDS: Atorvastatin Calcium 40 MG TAB PO SCH (20:43)
[2022-11-01] MEDS: Gabapentin 300 MG CAP PO SCH (20:43)
[2022-11-02] MEDS: Cephalexin 250 MG CAP PO SCH ×3 (02:05→17:25)
[2022-11-02] MEDS: Tamsulosin HCl 0.4 MG CAP PO SCH (08:27)
[2022-11-02] MEDS: Furosemide 20 MG TAB PO SCH (08:27)
[2022-11-02] MEDS: PARoxetine 20 MG TAB PO SCH (08:27)
[2022-11-02] MEDS: Multivit, Chewable SF 1 TAB PO SCH (08:27)
[2022-11-02] MEDS: Gabapentin 300 MG CAP PO SCH (20:03)
[2022-11-02] MEDS: Atorvastatin Calcium 40 MG TAB PO SCH (20:03)
[2022-11-03] MEDS: Cephalexin 250 MG CAP PO SCH ×3 (02:00→18:15)
[2022-11-03 06:15] LABS: #Basophils 0.1 thou/uL (0.0-0.2); #Eosinphils 0.7 thou/uL (0.0-0.7); #Monocytes 0.6 thou/uL (0.11-0.59); #Neutrophils 2.4 thou/uL (1.40-6.50); %Basophils 1.8 % (0.0-1.0); %Eosinophils 11.9 % (0.0-10.0); %Monocytes 10.2 % (0.0-10.0); %Neutrophils 41.6 % (42.0-75.0); Hemoglobin 13.6 g/dL (14.0-18.0); Mean Corpuscular HGB CONC 32.3 g/dL (32.0-36.0); Mean Corpuscular Volume 92.7 fl (78.0-98.0); Platelet Count 222 10x3/uL (130-400); Red Blood Cell (RBC) Count 4.54 mill/uL (4.70-6.10); White Blood Cell (WBC) Count 5.7 10x3/uL (4.8-10.8)
[2022-11-03 06:50] LABS: Anion Gap 12 mmol/L (10-20); BUN (Urea Nitrogen) 33 mg/dL (8.4-25.7); Calc. Creatinine Clearance 67 mL/min (70-130); Carbon Dioxide 25 mmol/L (23-31); Chloride 107 mmol/L (98-107); Estimated GFR 76; Glucose 95 mg/dL (83-110); Potassium 3.9 mmol/L (3.5-5.1); Sodium 140 mmol/L (136-145)
[2022-11-03] MEDS: Tamsulosin HCl 0.4 MG CAP PO SCH (08:37)
[2022-11-03] MEDS: Multivit, Chewable SF 1 TAB PO SCH (08:37)
[2022-11-03] MEDS: PARoxetine 20 MG TAB PO SCH (08:37)
[2022-11-03] MEDS: Furosemide 20 MG TAB PO SCH (08:37)
[2022-11-03] MEDS: Gabapentin 300 MG CAP PO SCH (19:50)
[2022-11-03] MEDS: Atorvastatin Calcium 40 MG TAB PO SCH (19:51)
[2022-11-03] MEDS: hydrOXYzine 25 MG TAB PO PRN (19:52)
[2022-11-04] MEDS: Cephalexin 250 MG CAP PO SCH ×3 (02:21→18:17)
[2022-11-04] MEDS: PARoxetine 20 MG TAB PO SCH (10:30)
[2022-11-04] MEDS: Furosemide 20 MG TAB PO SCH (10:30)
[2022-11-04] MEDS: Tamsulosin HCl 0.4 MG CAP PO SCH (10:30)
[2022-11-04] MEDS: Multivit, Chewable SF 1 TAB PO SCH (10:31)
[2022-11-04] MEDS: Gabapentin 300 MG CAP PO SCH (20:52)
[2022-11-04] MEDS: Atorvastatin Calcium 40 MG TAB PO SCH (20:52)
[2022-11-05] MEDS: Cephalexin 250 MG CAP PO SCH ×2 (03:23→10:43)
[2022-11-05 04:52] LABS: #Basophils 0.1 thou/uL (0.0-0.2); #Eosinphils 0.6 thou/uL (0.0-0.7); #Monocytes 0.7 thou/uL (0.11-0.59); #Neutrophils 2.5 thou/uL (1.40-6.50); %Basophils 1.7 % (0.0-1.0); %Eosinophils 9.9 % (0.0-10.0); %Lymphocytes 32.5 % (21.0-51.0); %Monocytes 10.9 % (0.0-10.0); %Neutrophils 42.5 % (42.0-75.0); Hemoglobin 13.7 g/dL (14.0-18.0); Mean Corpuscular HGB CONC 32.9 g/dL (32.0-36.0); Mean Corpuscular Hemoglobin 30.7 pg (27.0-31.0); Mean Corpuscular Volume 93.5 fl (78.0-98.0); Mean Platelet Volume 8.9 fL (7.4-10.4); Platelet Count 227 10x3/uL (130-400); RBC Distribution Width 13.9 % (11.5-14.5); Red Blood Cell (RBC) Count 4.46 mill/uL (4.70-6.10)
[2022-11-05 05:16] LABS: Anion Gap 11 mmol/L (10-20); BUN (Urea Nitrogen) 33 mg/dL (8.4-25.7); Calc. Creatinine Clearance 57 mL/min (70-130); Calcium 8.8 mg/dL (7.8-10.44); Carbon Dioxide 27 mmol/L (23-31); Chloride 107 mmol/L (98-107); Estimated GFR 62; Glucose 108 mg/dL (83-110); Potassium 3.9 mmol/L (3.5-5.1); Sodium 141 mmol/L (136-145)
[2022-11-05] MEDS: Multivit, Chewable SF 1 TAB PO SCH (08:48)
[2022-11-05] MEDS: PARoxetine 20 MG TAB PO SCH (08:49)
[2022-11-05] MEDS: Tamsulosin HCl 0.4 MG CAP PO SCH (08:49)
[2022-11-05] MEDS: Furosemide 20 MG TAB PO SCH (08:53)
[2022-11-05 14:10] VITALS: BP 132/86; TEMP 98.3
== END 2022-11-05 14:04 | DRG 690 ==
LOC: ERS 08:56 → T4-B 14:00 → OBSVTOIN 10-07 10:20
PROVIDERS: ADMIT Student in an Organized Health Care Education/Training Program; ATTEND Student in an Organized Health Care Education/Training Program
DX: N39.0 Urinary tract infection, site not specified (principal); Z16.20 Resistance to unspecified antibiotic; I10 Essential (primary) hypertension; E78.5 Hyperlipidemia, unspecified; N40.0 Benign prostatic hyperplasia without lower urinary tract symptoms; M19.90 Unspecified osteoarthritis, unspecified site; F41.9 Anxiety disorder, unspecified; F10.10 Alcohol abuse, uncomplicated; Z96.651 Presence of right artificial knee joint; Z96.642 Presence of left artificial hip joint; F32.A Depression, unspecified; Z66 Do not resuscitate; L89.151 Pressure ulcer of sacral region, stage 1; R41.9 Unspecified symptoms and signs involving cognitive functions and awareness; C67.9 Malignant neoplasm of bladder, unspecified; B96.20 Unspecified Escherichia coli [E. coli] as the cause of diseases classified elsewhere; Z85.51 Personal history of malignant neoplasm of bladder; Z79.899 Other long term (current) drug therapy; Z98.890 Other specified postprocedural states
CPT/HCPCS: 36415; 36416; 80048; 80053; 81001; 82550; 83735; 85014; 85018; 85025; 85049; 87077; 87086; 87186; 94760; 96365; 96366; 96372; 96376; G0378; J0692; J0696; J1580; J1650; J3490